=== PATIENT | female | born 1935 | race African-American/Black ===

== ENCOUNTER 2019-01-22 07:46 | Inpatient (IN) | payer MEDICARE, BC ==
[2019-01-22 08:51] LABS: ALT (SGPT) 14 U/L (8-55); AST (SGOT) 22 U/L (5-34); Albumin 4.1 g/dL (3.4-4.8); Alkaline Phosphatase 79 U/L (40-150); Anion Gap 14 mmol/L (10-20); BUN (Urea Nitrogen) 17 mg/dL (9.8-20.1); Bilirubin, Total 0.7 mg/dL (0.2-1.2); Calc. Creatinine Clearance 0 mL/min (70-130); Calcium 9.7 mg/dL (7.8-10.44); Carbon Dioxide 22 mmol/L (23-31); Chloride 109 mmol/L (98-107); Estimated GFR-MDRD 61; Globulin 2.9 g/dL (2.4-3.5); Glucose 184 mg/dL (83-110); Potassium 3.8 mmol/L (3.5-5.1); Sodium 141 mmol/L (136-145)
[2019-01-22 09:06] LABS: #Eosinphils 0.4 thou/uL (0.0-0.7); #Lymphocytes 3.1 thou/uL (1.20-3.40); #Monocytes 0.4 thou/uL (0.11-0.59); #Neutrophils 3.9 thou/uL (1.40-6.50); %Basophils 0.5 % (0.0-1.0); %Eosinophils 4.7 % (0.0-10.0); %Lymphocytes 39.1 % (21.0-51.0); %Monocytes 5.6 % (0.0-10.0); %Neutrophils 50.1 % (42.0-75.0); Hemoglobin 11.4 g/dL (12.0-16.0); Large Platelets SLIGHT; MDiff Complete? YES; Mean Corpuscular HGB CONC 33.3 g/dL (32.0-36.0); Mean Corpuscular Hemoglobin 30.8 pg (27.0-31.0); Mean Corpuscular Volume 92.6 fL (78.0-98.0); Mean Platelet Volume 9.9 fL (7.4-10.4); Platelet Count 196 thou/uL (130-400); Platelet Morphology Comment Appears Adequate; RBC Distribution Width 19.5 % (11.5-14.5); White Blood Cell (WBC) Count 7.8 thou/uL (4.8-10.8)
[2019-01-22 09:14] LABS: CKMB 2.8 ng/mL (0-6.6)
[2019-01-22] MEDS ORDERED: Aspirin Chewable 81 MG TAB ONE (09:18)
--- NOTE | 2019-01-22 09:34 | RAD ---
ONE VIEW CHEST: COMPARISON: 07/30/2003. HISTORY: Dyspnea. FINDINGS: Enlarged cardiac silhouette. The pulmonary vessels and hilum are normal. There is hazy opacificatio n of the lung bases suggesting bilateral pleural effusions with left lower lobe parenchymal changes s econdary to atelectasis, pneumonia, or aspiration. No pneumothorax. IMPRESSION: Bilateral pleural effusions with left lower lobe parenchymal changes as described above. Continued s urveillance is recommended. POS: OFF
--- NOTE | 2019-01-22 11:04 | CT ---
CT angiogram chest with 3-D rendering: HISTORY: Shortness of breath FINDINGS: Moderate size bilateral pleural effusions and bilateral vascular congestion and diffuse groundglass o pacities evidence for pulmonary edema with cardiomegaly concerning for congestive heart failure. No CT evidence for acute pulmonary embolism. Old granulomatous disease. 1.5 cm diameter right adrenal ad enoma. Small renal hypodensities statistically small cysts. No mediastinal mass or adenopathy. No evidence for an aortic aneurysm. IMPRESSION: Evidence for congestive heart failure. No CT evidence for acute pulmonary embolism. Other findings as above.
[2019-01-22] MEDS ORDERED: Amlodipine 5 MG TAB ONE (11:50)
[2019-01-22 11:58] LABS: Troponin I 0.048 ng/mL (< 0.028)
[2019-01-22] MEDS ORDERED: Senokot S 8.6-50 MG TAB PO PRN (12:02)
[2019-01-22] MEDS ORDERED: HYDROcodone/Acetaminophen 5/325 mg Tablet PO PRN (12:02)
[2019-01-22] MEDS ORDERED: Acetaminophen 325 MG TAB PO PRN (12:02)
[2019-01-22] MEDS ORDERED: Dextrose 5% in Water 1,000 ML IV PRN (12:08)
[2019-01-22] MEDS ORDERED: Dextrose 50% Abboject 50 ML SYRINGE SLOW IVP PRN (12:08)
[2019-01-22] MEDS ORDERED: hydrALAZINE 20 MG/ML VIAL SLOW IVP PRN (12:23)
[2019-01-22] MEDS ORDERED: cloNIDine 0.1 MG TAB PO PRN (12:23)
[2019-01-22] MEDS ORDERED: Furosemide 40 MG/4 ML VIAL ONE (12:33)
[2019-01-22] MEDS ORDERED: ISOVUE-370 76%-LOCM 1 ML ONE (13:01)
--- NOTE | 2019-01-22 13:02 | HP ---
PRIMARY CARE PHYSICIAN: Dr. Brown. CHIEF COMPLAINT: Dyspnea. HISTORY OF PRESENT ILLNESS: This is a very pleasant 83-year-old female, who reported to the emergency room today after what she describes is 2 days of shortness of breath. She denies chest pain, fever, or cough. Reports she has a history of some tachycardia and reports that she had to be hospitalized once for that, but is not exactly sure what they did. Does report that she had a cardiac cath at some point, maybe 2002 she thinks at [facility] in [place], but they did not put any stents or do anything with her and she has not followed up with Cardiology since that time. She reports dyspnea on exertion, which she reports is new. Denies any cardiac disease or irregularities and other problems other than the persistent tachycardia, which she reports she has not had for quite some time. Denies history of COPD or any smoking history. She does report a past medical history pertinent for hypertension and diabetes. In the emergency room, the patient had a high D-dimer 0.[address] the CT scan for a CTA of the chest. Impression was evidence for congestive heart failure. No CT evidence of acute pulmonary emboli. First troponin is in the indeterminate range of 0.048 and BNP is 586. The patient denies any history of any congestive heart failure and denies being told that she has this. The patient to be admitted to the telemetry unit for further management. PAST MEDICAL HISTORY: Pertinent as above. Diabetes type 2, hypertension, and tachycardia in the past. PAST SURGICAL HISTORY: Bilateral hip replacements, cholecystectomy, has had a heart catheterization in the past in early 1999 she believes. PSYCHIATRIC HISTORY: None. SOCIAL HISTORY: The patient drinks socially, but rarely. Denies any drug use or any smoking history. FAMILY HISTORY: There is some cardiac history on her mother side. REVIEW OF SYSTEMS: The patient reports history of tachycardia. Reports new onset shortness of breath and dyspnea on exertion. Denies any cough. Denies any fever or chills. Denies any chest pain. All other systems are reviewed and are negative unless mentioned in the HPI. PHYSICAL EXAMINATION: VITAL SIGNS: Blood pressure 180/109, pulse is 97, respirations are 19, temp is 97.8, PO2 sats are 92% on room air. CONSTITUTIONAL: The patient appears nontoxic. She is alert and oriented to person, place, and time. HEENT: Head is atraumatic and normocephalic. Eyes, pupils are equal, round, and reactive to light. Extraocular muscles are intact. ENT; mouth exam is normal. Mucous membranes are moist. Poorly fitted dentures. NECK: Normal range of motion. Trachea is midline. RESPIRATORY: Expiratory crackles present on right lower lobe. No findings of any respiratory distress. CARDIOVASCULAR: Irregularly irregular. Heart sounds are normal. ABDOMEN: Nontender. Bowel sounds are heard. BACK: Normal inspection. Normal range of motion. EXTREMITIES: Upper extremity; normal inspection. Normal range of motion. Motor strength is normal. Sensation intact. Radial pulses are normal. Lower extremities; normal range of motion. Motor strength is normal. Sensation intact. Pedal pulses are normal. There is no edema noted. NEUROLOGIC: The patient is oriented to person, place, and time. Speech is normal. SKIN: Warm, dry, and normal in color that is which is visualized. PSYCH: Normal affect. DIAGNOSTIC DATA: EKG in the emergency room shows beats per minute 96, sinus rhythm with PVCs, complete right bundle branch block, ST segments normal, T-waves normal. ASSESSMENT/PLAN: 1. Dyspnea with concern for new onset congestive heart failure per CT scan, elevated BNP and symptoms. She was given Lasix 40, normal saline 500 mL, amlodipine 10, and an aspirin in the emergency room. We will continue Lasix. Order an echocardiogram. Asked Cardiology to consult. We will trend troponins. Continue aspirin. 2. History of hypertension. We will restart home medications once reconciled. Add p.r.n. medications as needed. We will trend. 3. History of diabetes mellitus. We will check sugar a.c. and at bedtime. Add sliding scale coverage while hospitalized. We will trend. 4. Deep venous thrombosis and gastrointestinal prophylaxis have been started. 5. Case was discussed with Dr. George, who agrees. 6. Hospital course is dependent on clinical findings. Job ID: [id number]
[2019-01-22] MEDS ORDERED: Potassium Chloride 20 MEQ TAB ONE (14:34)
[2019-01-22] MEDS ORDERED: traMADol HCl 50 MG TAB ONE (14:34)
[2019-01-22 15:41] LABS: Troponin I 0.081 ng/mL (< 0.028)
[2019-01-22 17:01] VITALS: BMI 29.7
--- NOTE | 2019-01-22 17:01 | CON ---
DATE OF CONSULTATION: REASON FOR CONSULTATION: Shortness of breath. HISTORY OF PRESENT ILLNESS: Ms. Marr is an 83-year-old woman, who has now been seen and evaluated by Cardiology in the past. She states over the last 3 days, she has began having increased shortness of breath. She states she never lies flat and always sleeps recumbent. She denies chest pain, pressure, PND, or lower extremity edema. She was subsequently admitted due to BNP of 586. No chest pain or pressure reported. She also was found to have elevated blood pressure. HOME MEDICATIONS: Nonspecified. ALLERGIES: VERAPAMIL (RASH). LISINOPRIL (UNKNOWN). PAST MEDICAL HISTORY: Diabetes mellitus, hypertension, hip replacement, and cholecystectomy. SOCIAL HISTORY: No current alcohol or tobacco use. REVIEW OF SYSTEMS: Ten-point review of systems is reviewed and as above, otherwise negative. PHYSICAL EXAMINATION: VITAL SIGNS: Patient is a pleasant woman, who is in no acute distress. The patient appears their stated age. VITAL SIGNS: Blood pressure 167/67, pulse 70, and respirations 20. NEUROLOGIC: The patient is alert and oriented x3 with no focal neurologic deficits. HEENT: Sclerae without icterus. Mouth has moist mucous membranes with normal pallor. NECK: No JVD. Carotid upstroke brisk. No bruits bilaterally. LUNGS: Crackles noted bilaterally. BACK: No scoliosis or kyphosis. CARDIAC: Regular rate and rhythm with normal S1 and S2. No S3 or S4 noted. No significant rubs, murmurs, thrills, or gallops noted throughout the precordium. PMI is not displaced. There is no parasternal heave. ABDOMEN: Soft, nontender, nondistended. No peritoneal signs present. No hepatosplenomegaly. No abnormal striae. EXTREMITIES: 2+ femoral and 2+ dorsalis pedis pulses. No cyanosis, clubbing, or edema. SKIN: No gross abnormalities. PERTINENT LABORATORY DATA: Include a chloride of 109, CO2 of 22, and creatinine of 1.05. BNP of 586. IMPRESSION: 1. Cardiomyopathy of unknown etiology. 2. Hypertension. 3. Diabetes mellitus. RECOMMENDATIONS: 1. Ms. Marr likely has a component of diastolic dysfunction. We would recommend echo Doppler to assess LVEF. Her BNP is elevated. She also has crackles. Continue with Lasix. 2. I also discussed her elevated blood pressure. She has this history to calcium-channel cassandra and TYSON inhibitor therapy. I did state this would certainly limits our options. She is unsure what her true lisinopril allergy was. May need to have her rechallenged. We will increase Lasix to b.i.d. dosing. Job ID: [id number]
[2019-01-22 18:50] LABS: Troponin I 0.069 ng/mL (< 0.028)
[2019-01-22] MEDS: Famotidine 20 MG TAB PO SCH (20:45)
[2019-01-23 06:15] LABS: Anion Gap 10 mmol/L (10-20); BUN (Urea Nitrogen) 15 mg/dL (9.8-20.1); Calc. Creatinine Clearance 50 mL/min (70-130); Calcium 9.5 mg/dL (7.8-10.44); Carbon Dioxide 28 mmol/L (23-31); Chloride 106 mmol/L (98-107); Estimated GFR-MDRD 60; Glucose 116 mg/dL (83-110); Potassium 4.3 mmol/L (3.5-5.1); Sodium 140 mmol/L (136-145)
[2019-01-23 07:17] LABS: #Basophils 0.1 thou/uL (0.0-0.2); #Eosinphils 0.5 thou/uL (0.0-0.7); #Lymphocytes 2.8 thou/uL (1.20-3.40); #Monocytes 0.5 thou/uL (0.11-0.59); #Neutrophils 5.2 thou/uL (1.40-6.50); %Eosinophils 5.3 % (0.0-10.0); %Lymphocytes 30.8 % (21.0-51.0); %Monocytes 5.9 % (0.0-10.0); Hemoglobin 10.9 g/dL (12.0-16.0); Mean Corpuscular Hemoglobin 30.6 pg (27.0-31.0); Mean Corpuscular Volume 92.8 fL (78.0-98.0); Platelet Count 214 thou/uL (130-400); RBC Distribution Width 19.8 % (11.5-14.5); Red Blood Cell (RBC) Count 3.56 mill/uL (4.20-5.40); White Blood Cell (WBC) Count 9.2 thou/uL (4.8-10.8)
[2019-01-23] MEDS ORDERED: Losartan 25 MG TAB PO SCH ×3 (09:00→14:15)
[2019-01-23] MEDS ORDERED: Furosemide 40 MG/4 ML VIAL SLOW IVP SCH (09:00)
[2019-01-23] MEDS ORDERED: Carvedilol 3.125 MG TAB PO SCH (09:00)
[2019-01-23] MEDS: Famotidine 20 MG TAB PO SCH ×2 (09:27→20:15)
[2019-01-23] MEDS: Furosemide 40 MG/4 ML VIAL SLOW IVP SCH ×2 (09:28→12:19)
[2019-01-23] MEDS: Enoxaparin Sodium 40 MG/0.4 ML SYRINGE SC SCH (09:29)
[2019-01-23] MEDS: HumaLOG 300 UNITS/3 ML VIAL SC PRN (12:19)
--- NOTE | 2019-01-23 13:23 | PDOC.CPN ---
- Subjective Date: 01/23/19 Time: 13:21 Interval history: Feels much better today Much less SOB - Objective Allergies/Adverse Reactions: Allergies Allergy/AdvReac Type Severity Reaction Status Date / Time lisinopril Allergy Verified 01/22/19 16:45 verapamil Allergy Verified 01/22/19 16:45 Visit Medications: Current Medications Acetaminophen (Tylenol) 650 mg PO Q4H PRN PRN Reason: Headache/Fever/Mild Pain (1-3) Hydrocodone Bitart/Acetaminophen ([place] 5/325) 1 tab PO Q4H PRN PRN Reason: Moderate Pain (4-6) Alogliptin Benzoate (Alogliptin) 25 mg PO DAILY [facility] Atorvastatin Calcium (Lipitor) 10 mg PO HS [facility] Carvedilol (Coreg) 3.125 mg PO BID [facility] Last Admin: 01/23/19 09:28 Dose: 3.125 mg Clonidine (Catapres) 0.1 mg PO Q4H PRN PRN Reason: SBP Greater Than 180 Dextrose/Water (Dextrose 50%) 25 gm SLOW IVP PRN PRN PRN Reason: Hypoglycemia Enoxaparin Sodium (Lovenox) 40 mg SC 0900 [facility] Last Admin: 01/23/19 09:29 Dose: 40 mg Famotidine (Pepcid) 20 mg PO BID [facility] Last Admin: 01/23/19 09:27 Dose: 20 mg Furosemide (Lasix) 40 mg SLOW IVP 0900,1200 [facility] Last Admin: 01/23/19 12:19 Dose: 40 mg Glimepiride (Amaryl) 8 mg PO QAM [facility] Glucagon (Glucagon) 1 mg IM PRN PRN PRN Reason: Hypoglycemia Hydralazine HCl (Apresoline) 10 mg SLOW IVP Q4H PRN PRN Reason: SBP > 180 and HR < 70 Dextrose/Water (D5w) 1,000 mls @ 0 mls/hr IV .Q0M PRN PRN Reason: Hypoglycemia Insulin Human Lispro (Humalog) 0 units SC .MILD SLIDING SCALE PRN PRN Reason: Mild Correctional Scale Last Admin: 01/23/19 12:19 Dose: 2 unit Losartan Potassium (Cozaar) 50 mg PO DAILY [facility] Last Admin: 01/23/19 09:27 Dose: 50 mg Senna/Docusate Sodium (Senokot S) 2 tab PO BIDPRN PRN PRN Reason: Constipation Sodium Chloride (Flush - Normal Saline) 10 ml IVF PRN PRN PRN Reason: Saline Flush Vital Signs & Weight: Vital Signs Temp Pulse Resp BP BP BP Pulse Ox 01/23/19 12:11 99.1 F 86 18 152/71 H 95 01/23/19 11:26 145/61 H 170/72 H 01/23/19 08:00 98 01/23/19 07:23 98.1 F 78 18 144/96 H 98 01/23/19 04:00 98.2 F 73 16 143/63 H 94 L Pulse Ox 01/23/19 12:11 01/23/19 11:26 94 L 01/23/19 08:00 01/23/19 07:23 01/23/19 04:00 Weight 169 lb 1.6 oz - Physical Exam General: alert & oriented x3 HEENT: mucus membranes moist Neck: supple neck Cardiac: regular rate and rhythm, audible murmur Lungs: clear to auscultation Neuro: grossly intact Musculoskeletal: normal range of motion - Labs Result Diagrams: 01/23/19 05:21 01/23/19 05:21 Troponin/CKMB CK-MB (CK-2) 2.8 ng/mL (0-6.6) 01/22/19 08:15 Troponin I 0.069 ng/mL (< 0.028) H 01/22/19 18:11 - Assessment/Plan Assessment/Plan: SOB Severe MR Diasatolic dysfunction Recommend continued diuresis Switch to po lasix in am Pt near BL No further recommendations Home tomorrow if no changes with OP fu
--- NOTE | 2019-01-23 13:57 | PDOC.HOSPP ---
- Subjective Encounter Date: 01/23/19 Encounter Time: 08:55 Subjective: 83 y/o female with DM, HTN admitted with worsening SOB and leg edema. Started on lasix with improvement. - Objective Vital Signs & Weight: Vital Signs (12 hours) Temp Pulse Resp BP BP BP Pulse Ox 01/23/19 12:11 99.1 F 86 18 152/71 H 95 01/23/19 11:26 145/61 H 170/72 H 01/23/19 08:00 98 01/23/19 07:23 98.1 F 78 18 144/96 H 98 01/23/19 04:00 98.2 F 73 16 143/63 H 94 L Pulse Ox 01/23/19 12:11 01/23/19 11:26 94 L 01/23/19 08:00 01/23/19 07:23 01/23/19 04:00 Weight Weight 169 lb 1.6 oz I&O: 01/22/19 01/23/19 01/24/19 06:59 06:59 06:59 Intake Total 120 Output Total 1000 Balance -880 Result Diagrams: 01/23/19 05:21 01/23/19 05:21 Additional Labs: Accuchecks 01/23/19 01/22/19 11:20 17:41 POC Glucose 195 H 188 H Hospitalist ROS - Medication Medications: Active Medications Generic Name Dose Route Start Last Admin Trade Name Freq PRN Reason Stop Dose Admin Enoxaparin Sodium 40 mg 01/23/19 09:00 01/23/19 09:29 Lovenox SC 40 mg 0900 ABDI Administration Famotidine 20 mg 01/22/19 21:00 01/23/19 09:27 Pepcid PO 20 mg BID ABDI Administration Insulin Human Lispro 0 units 01/22/19 12:08 01/23/19 12:19 Humalog SC 2 unit .MILD SLIDING SCALE PRN Administration Mild Correctional Scale Losartan Potassium 50 mg 01/23/19 09:00 01/23/19 09:27 Cozaar PO 50 mg DAILY ABDI Administration - Exam General Appearance: awake alert Eye: anicteric sclera ENT: normocephalic atraumatic, moist mucosa Neck: supple, symmetric Heart: RRR, murmur present Respiratory - other findings: fair air but decreased at the bases Gastrointestinal: soft, non-tender, non-distended, normal bowel sounds Extremities: no cyanosis, no edema Neurological: cranial nerve grossly intact, no focal deficits Musculoskeletal: normal tone, no muscle wasting Psychiatric: normal affect, A&O x 3 Hosp A/P (1) Acute diastolic heart failure due to valvular disease Code(s): I50.31 - ACUTE DIASTOLIC (CONGESTIVE) HEART FAILURE; I38 - ENDOCARDITIS , VALVE UNSPECIFIED Status: Acute (2) Severe mitral regurgitation Code(s): I34.0 - NONRHEUMATIC MITRAL (VALVE) INSUFFICIENCY Status: Acute (3) Acute respiratory failure with hypoxia Code(s): J96.01 - ACUTE RESPIRATORY FAILURE WITH HYPOXIA Status: Acute (4) HTN (hypertension) Code(s): I10 - ESSENTIAL (PRIMARY) HYPERTENSION Status: Acute (5) Diabetes mellitus Code(s): E11.9 - TYPE 2 DIABETES MELLITUS WITHOUT COMPLICATIONS Status: Acute (6) Physical deconditioning Code(s): R53.81 - OTHER MALAISE Status: Acute - Plan Restart losartan at a lower dose. Start low dose coreg and titrate upwards as tolerated. Continue lasix IV bid Continue to hold amlodipine and HCTZ. Increase activity. For discharge tomorrow if doing well. Wean off oxygen
[2019-01-23] MEDS: Carvedilol 6.25 MG TAB PO SCH (20:15)
[2019-01-23] MEDS ORDERED: Atorvastatin Calcium 10 MG TAB PO SCH (21:00)
--- NOTE | 2019-01-24 05:32 | PDOC.CPN ---
- Subjective Date: 01/24/19 Time: 16:49 - Objective Allergies/Adverse Reactions: Allergies Allergy/AdvReac Type Severity Reaction Status Date / Time lisinopril Allergy Verified 01/22/19 16:45 verapamil Allergy Verified 01/22/19 16:45 Visit Medications: Current Medications Acetaminophen (Tylenol) 650 mg PO Q4H PRN PRN Reason: Headache/Fever/Mild Pain (1-3) Hydrocodone Bitart/Acetaminophen ([place] 5/325) 1 tab PO Q4H PRN PRN Reason: Moderate Pain (4-6) Alogliptin Benzoate (Alogliptin) 25 mg PO DAILY [facility] Atorvastatin Calcium (Lipitor) 10 mg PO HS [facility] Last Admin: 01/23/19 20:15 Dose: 10 mg Carvedilol (Coreg) 6.25 mg PO BID [facility] Last Admin: 01/23/19 20:15 Dose: 6.25 mg Clonidine (Catapres) 0.1 mg PO Q4H PRN PRN Reason: SBP Greater Than 180 Dextrose/Water (Dextrose 50%) 25 gm SLOW IVP PRN PRN PRN Reason: Hypoglycemia Enoxaparin Sodium (Lovenox) 40 mg SC 0900 [facility] Last Admin: 01/23/19 09:29 Dose: 40 mg Famotidine (Pepcid) 20 mg PO BID [facility] Last Admin: 01/23/19 20:15 Dose: 20 mg Furosemide (Lasix) 80 mg PO DAILY[facility] Glimepiride (Amaryl) 8 mg PO QAM [facility] Glucagon (Glucagon) 1 mg IM PRN PRN PRN Reason: Hypoglycemia Hydralazine HCl (Apresoline) 10 mg SLOW IVP Q4H PRN PRN Reason: SBP > 180 and HR < 70 Dextrose/Water (D5w) 1,000 mls @ 0 mls/hr IV .Q0M PRN PRN Reason: Hypoglycemia Insulin Human Lispro (Humalog) 0 units SC .MILD SLIDING SCALE PRN PRN Reason: Mild Correctional Scale Last Admin: 01/23/19 12:19 Dose: 2 unit Losartan Potassium (Cozaar) 100 mg PO DAILY [facility] Senna/Docusate Sodium (Senokot S) 2 tab PO BIDPRN PRN PRN Reason: Constipation Sodium Chloride (Flush - Normal Saline) 10 ml IVF PRN PRN PRN Reason: Saline Flush Vital Signs & Weight: Vital Signs Temp Pulse Resp BP BP Pulse Ox 01/24/19 04:00 97.9 F 69 20 141/69 H 94 L 01/24/19 00:00 18 01/23/19 20:15 146/64 H 01/23/19 20:00 98.4 F 73 20 146/64 H 94 L Weight 169 lb 1.6 oz - Physical Exam General: alert & oriented x3 Neck: supple neck Cardiac: regular rate and rhythm Lungs: clear to auscultation Neuro: grossly intact Abdomen: unremarkable Musculoskeletal: normal range of motion - Labs Result Diagrams: 01/23/19 05:21 01/24/19 05:08 Troponin/CKMB CK-MB (CK-2) 2.8 ng/mL (0-6.6) 01/22/19 08:15 Troponin I 0.069 ng/mL (< 0.028) H 01/22/19 18:11 - Assessment/Plan Assessment/Plan: SOB Severe MR Diasatolic dysfunction REC 01/24 Switch to PO lasix 40mg QAM On BB, statin, ASA Catheterization Laboratory Technician on low Na diet and fluid restriction Sign off; fu in 1-2 weeks 01/23 Recommend continued diuresis Switch to po lasix in am Pt near BL No further recommendations Home tomorrow if no changes with OP fu
[2019-01-24 05:47] LABS: Anion Gap 11 mmol/L (10-20); BUN (Urea Nitrogen) 22 mg/dL (9.8-20.1); Calc. Creatinine Clearance 46 mL/min (70-130); Calcium 9.5 mg/dL (7.8-10.44); Carbon Dioxide 28 mmol/L (23-31); Chloride 102 mmol/L (98-107); Estimated GFR-MDRD 55; Glucose 141 mg/dL (83-110); Potassium 3.5 mmol/L (3.5-5.1); Sodium 137 mmol/L (136-145)
[2019-01-24] MEDS ORDERED: Furosemide 80 MG TAB PO SCH (07:30)
[2019-01-24] MEDS ORDERED: Furosemide 40 MG TAB PO SCH (07:30)
[2019-01-24] MEDS ORDERED: Alogliptin 25 MG TAB PO SCH (09:00)
[2019-01-24] MEDS ORDERED: Glimepiride 4 MG TAB PO SCH (09:00)
[2019-01-24] MEDS: Carvedilol 6.25 MG TAB PO SCH (09:38)
[2019-01-24] MEDS: Enoxaparin Sodium 40 MG/0.4 ML SYRINGE SC SCH (09:38)
[2019-01-24] MEDS: Famotidine 20 MG TAB PO SCH (09:39)
[2019-01-24] MEDS: HumaLOG 300 UNITS/3 ML VIAL SC PRN (12:29)
--- NOTE | 2019-01-24 14:08 | PDOC.HOSPP ---
- Subjective Encounter Date: 01/24/19 Encounter Time: 14:06 Subjective: Ms. Marr was seen today in follow-up of CHF exacerbation. she is feeling better. she denies chest pain or dyspnea. - Objective Vital Signs & Weight: Vital Signs (12 hours) Temp Pulse Resp BP BP Pulse Ox 01/24/19 11:35 98.3 F 71 18 125/56 L 96 01/24/19 09:38 132/60 01/24/19 08:00 99 01/24/19 07:35 97.9 F 74 18 138/65 99 01/24/19 04:00 97.9 F 69 20 141/69 H 94 L Weight Weight 161 lb 11.2 oz I&O: 01/23/19 01/24/19 01/25/19 06:59 06:59 06:59 Intake Total 120 1370 Output Total 1000 1650 Balance -880 -280 Result Diagrams: 01/23/19 05:21 01/24/19 05:08 Additional Labs: Accuchecks 01/24/19 01/24/19 01/23/19 10:46 05:23 20:18 POC Glucose 254 H 164 H 228 H 01/23/19 01/23/19 01/22/19 16:53 05:23 20:26 POC Glucose 151 H 125 H 193 H Hospitalist ROS - Medication Medications: Active Medications Generic Name Dose Route Start Last Admin Trade Name Freq PRN Reason Stop Dose Admin Alogliptin Benzoate 25 mg 01/24/19 09:00 01/24/19 09:38 Alogliptin PO 25 mg DAILY ABDI Administration Atorvastatin Calcium 10 mg 01/23/19 21:00 01/23/19 20:15 Lipitor PO 10 mg HS ABDI Administration Carvedilol 6.25 mg 01/23/19 21:00 01/24/19 09:38 Coreg PO 6.25 mg BID ABDI Administration Enoxaparin Sodium 40 mg 01/23/19 09:00 01/24/19 09:38 Lovenox SC 40 mg 0900 ABDI Administration Famotidine 20 mg 01/22/19 21:00 01/24/19 09:39 Pepcid PO 20 mg BID ABDI Administration Furosemide 40 mg 01/24/19 07:30 01/24/19 09:39 Lasix PO 40 mg DAILY-AC ABDI Administration Glimepiride 8 mg 01/24/19 09:00 01/24/19 09:38 Amaryl PO 8 mg QAM ABDI Administration Insulin Human Lispro 0 units 01/22/19 12:08 01/24/19 12:29 Humalog SC 4 unit .MILD SLIDING SCALE PRN Administration Mild Correctional Scale Losartan Potassium 100 mg 01/23/19 14:02 01/24/19 09:38 Cozaar PO 100 mg DAILY ABDI Administration - Exam Eye: PERRL, anicteric sclera Heart: RRR, no murmur, no gallops, no rubs, normal peripheral pulses Respiratory: CTAB, no wheezes, no rales, no ronchi, normal chest expansion, no tachypnea, normal percussion Gastrointestinal: soft, non-tender, non-distended, normal bowel sounds, no palpable masses, no hepatomegaly, no splenomegaly Extremities: no cyanosis, no edema Hosp A/P (1) Acute diastolic heart failure due to valvular disease Code(s): I50.31 - ACUTE DIASTOLIC (CONGESTIVE) HEART FAILURE; I38 - ENDOCARDITIS , VALVE UNSPECIFIED Status: Acute (2) Diabetes mellitus Code(s): E11.9 - TYPE 2 DIABETES MELLITUS WITHOUT COMPLICATIONS Status: Acute (3) HTN (hypertension) Code(s): I10 - ESSENTIAL (PRIMARY) HYPERTENSION Status: Acute - Plan * Acute on chronic diastolic heart failure- better compensated * She has been cleared for discharge home
[2019-01-24 16:01] VITALS: BP 139/65; TEMP 97.7
--- NOTE | 2019-01-25 00:37 | DIS ---
DATE OF ADMISSION: 01/22/2019 DATE OF DISCHARGE: 01/24/2019 PRIMARY CARE PHYSICIAN: Destini Brown MD DISCHARGE DISPOSITION: Home. PRIMARY DISCHARGE DIAGNOSES: 1. Acute on chronic diastolic heart failure. 2. Diabetes mellitus. 3. Hypertension. DISCHARGE MEDICATIONS: 1. Losartan 100 mg daily. 2. Lasix 40 mg daily. 3. Carvedilol 6.25 mg twice daily. 4. Januvia 100 mg p.o. daily. 5. Amaryl 8 mg daily. 6. Trulicity as directed. 7. Vitamin B12 of 1000 mcg p.o. daily. 8. Lipitor 10 mg at bedtime. 9. Aspirin 81 mg daily. PROCEDURE DURING THE HOSPITAL STAY: The patient had a CT angiogram of the chest, which was negative for pulmonary embolism, however, showed evidence of possible congestive heart failure. She had an echocardiogram showing an ejection fraction estimated at 50% to 55%. There was some impaired relaxation compatible with diastolic dysfunction, as well as severe mitral regurgitation was present and a large pleural effusion. CODE STATUS: Full code. ALLERGIES: TO LISINOPRIL AND VERAPAMIL. HOSPITAL COURSE: Ms. Marr is a very pleasant 83-year-old female, who was admitted to the hospital with complaints of shortness of breath. She was admitted and found to be in congestive heart failure as a result of diastolic dysfunction. Cardiology was consulted and her medications were adjusted. She diuresed well over the course of the next couple of days and was able to be discharged home. She was asked to refrain from driving due to some family concerns with possible early dementia and she was asked to follow up with her primary care physician in 1 to 2 weeks. Job ID: [id number]
--- NOTE | 2019-01-28 13:59 | EKG ---
Test Reason : SOB Blood Pressure : / mmHG Vent. Rate : 096 BPM Atrial Rate : 096 BPM P-R Int : 000 ms QRS Dur : 138 ms QT Int : 418 ms P-R-T Axes : -09 -11 -27 degrees QTc Int : 528 ms Sinus rhythm with Premature ventricular complexes or Fusion complexes Right bundle branch block Inferior infarct , age undetermined Abnormal ECG Confirmed by LILLIANA LOCKE ([id number]), graphics editor GINNY BAPTISTE ([id number]) on 01/28/2019 1:59:22 PM Referred By: Confirmed By:LILLIANA LOCKE
== END 2019-01-24 17:05 | disposition home or self-care (01) | DRG 291 ==
LOC: ERS 07:46 → 2NO 11:43
PROVIDERS: ADMIT Internal Medicine; ATTEND Internal Medicine
DX: I11.0 Hypertensive heart disease with heart failure (principal); J96.01 Acute respiratory failure with hypoxia; I50.33 Acute on chronic diastolic (congestive) heart failure; I34.0 Nonrheumatic mitral (valve) insufficiency; E11.9 Type 2 diabetes mellitus without complications; Z96.643 Presence of artificial hip joint, bilateral; I42.9 Cardiomyopathy, unspecified
CPT/HCPCS: 36415; 36416; 71045; 71275; 80048; 80053; 82553; 83880; 84484; 85025; 85379; 93005; 93306; 93798; 94760; 96361; 96374; J1650; J1940; Q9966

== ENCOUNTER 2019-09-03 09:39 | Emergency (ER) | payer MEDICARE, BC ==
[2019-09-03] MEDS ORDERED: Ketorolac Tromethamine 30 MG/ML VIAL ONE (10:44)
== END 2019-09-03 11:55 | disposition home or self-care (01) ==
LOC: ERS 09:39
DX: M62.838 Other muscle spasm (principal); M54.2 Cervicalgia; E78.5 Hyperlipidemia, unspecified; E11.9 Type 2 diabetes mellitus without complications; I11.0 Hypertensive heart disease with heart failure; I50.9 Heart failure, unspecified; Z79.82 Long term (current) use of aspirin; Z79.899 Other long term (current) drug therapy; Z79.891 Long term (current) use of opiate analgesic
CPT/HCPCS: 93005; J1885; 96372

== ENCOUNTER 2019-09-25 08:31 | Emergency (ER) | payer MEDICARE, BC, OTHER ==
[2019-09-25 09:14] LABS: #Basophils 0.1 thou/uL (0.0-0.2); #Eosinphils 0.1 thou/uL (0.0-0.7); #Lymphocytes 2.8 thou/uL (1.20-3.40); #Monocytes 0.6 thou/uL (0.11-0.59); %Basophils 0.8 % (0.0-1.0); %Eosinophils 1.4 % (0.0-10.0); %Lymphocytes 43.4 % (21.0-51.0); %Monocytes 8.5 % (0.0-10.0); Hemoglobin 12.2 g/dL (12.0-16.0); Mean Corpuscular HGB CONC 31.3 g/dL (32.0-36.0); Mean Corpuscular Hemoglobin 30.6 pg (27.0-31.0); Mean Corpuscular Volume 97.7 fL (78.0-98.0); Mean Platelet Volume 12.7 fL (7.4-10.4); Platelet Count 153 thou/uL (130-400); RBC Distribution Width 21.4 % (11.5-14.5); White Blood Cell (WBC) Count 6.5 thou/uL (4.8-10.8)
--- NOTE | 2019-09-25 09:14 | RAD ---
Chest one view HISTORY: Dyspnea. COMPARISON: 01/22/2019. FINDINGS: Cardiac silhouette is magnified and enlarged. Pulmonary vasculature is unremarkable. Mediastinum is midline with aortic calcification. Subtle blunting of the right lateral costophrenic angle. No lobar consolidation or evidence of pneumothorax. interactive designer leads overlie the chest. IMPRESSION : Very small right pleural effusion. Cause is not evident. Cardiomegaly. Atherosclerosis.
[2019-09-25 09:40] LABS: ALT (SGPT) 20 U/L (8-55); AST (SGOT) 30 U/L (5-34); Albumin 3.8 g/dL (3.4-4.8); Alkaline Phosphatase 128 U/L (40-110); Anion Gap 14 mmol/L (10-20); BUN (Urea Nitrogen) 26 mg/dL (9.8-20.1); Bilirubin, Total 1.8 mg/dL (0.2-1.2); CK (CPK) 68 U/L (29-168); Calc. Creatinine Clearance 0 mL/min (70-130); Calcium 9.6 mg/dL (7.8-10.44); Carbon Dioxide 22 mmol/L (23-31); Chloride 106 mmol/L (98-107); Estimated GFR-MDRD 47; Globulin 3.2 g/dL (2.4-3.5); Glucose 130 mg/dL (83-110); Sodium 138 mmol/L (136-145)
[2019-09-25 09:48] LABS: Burr Cells SLIGHT = 2-5 cells (100X) (0-1/hpf); Large Platelets SLIGHT; MDiff Complete? YES; Platelet Morphology Comment Appears Adequate; Polychromasia SLIGHT = 2-3 cells (100X) (0-2/hpf)
[2019-09-25 09:58] LABS: CKMB 2.1 ng/mL (0-6.6)
[2019-09-25] MEDS ORDERED: Furosemide 20 MG/2 ML VIAL ONE (10:17)
[2019-09-25 10:25] LABS: Bacteria/HPF None Seen HPF (None Seen); Bilirubin Negative (Negative); Blood, Urine Negative (Negative); Clarity Clear (Clear); Glucose, Urine (Dipstick) Normal (Negative); Leukocyte 25 Leu/uL (Negative); Nitrite Negative (Negative); Protein, Urine (Dipstick) 20 mg/dL (Neg-Trace); RBC/HPF 0-3 HPF (0-3); Squamous Epithelial 0-3 HPF (0-3); Urobilinogen 6 mg/dL (Less than 2)
--- NOTE | 2019-09-27 16:15 | EKG ---
Test Reason : Blood Pressure : / mmHG Vent. Rate : 071 BPM Atrial Rate : 071 BPM P-R Int : 148 ms QRS Dur : 132 ms QT Int : 470 ms P-R-T Axes : 050 -30 039 degrees QTc Int : 510 ms Normal sinus rhythm Left axis deviation Right bundle branch block Septal infarct , age undetermined Inferior infarct , age undetermined Abnormal ECG Confirmed by JOHNNIE PADILLA, ZAKIYA ([id number]), photography editor OCTAVIA HARRISON ([id number]) on 09/27/2019 4:15:00 PM Referred By: Confirmed By:ZAKIYA BLAIR MD
== END 2019-09-25 12:00 | disposition home or self-care (01) ==
LOC: ERS 08:31
DX: I11.0 Hypertensive heart disease with heart failure (principal); I50.9 Heart failure, unspecified; N39.0 Urinary tract infection, site not specified; E78.5 Hyperlipidemia, unspecified; E11.9 Type 2 diabetes mellitus without complications; Z79.82 Long term (current) use of aspirin; Z79.899 Other long term (current) drug therapy; Z79.891 Long term (current) use of opiate analgesic
CPT/HCPCS: 36415; 71045; 80053; 81003; 81015; 82550; 82553; 83880; 84484; 85025; 93005; J1940

== ENCOUNTER 2020-04-09 12:40 | Outpatient (CLI) | payer MEDICARE, BC ==
--- NOTE | 2020-04-09 13:03 | RAD ---
XR Chest Pa Lat STANDARD HISTORY: Edema, unspecified COMPARISON: 09/25/2019 FINDINGS: The heart size is enlarged. The left lung is clear. There is a right pleural effusion with adjacent consolidation/atelectatic change. No pneumothoraces are identified.
== END 2020-04-09 12:41 | disposition home or self-care (01) ==
LOC: BICRAD 12:40
PROVIDERS: ATTEND Internal Medicine Cardiovascular Disease
DX: R60.9 Edema, unspecified (principal); J90 Pleural effusion, not elsewhere classified; I51.7 Cardiomegaly
CPT/HCPCS: 71046

== ENCOUNTER 2020-06-02 16:27 | Inpatient (IN) | payer MEDICARE, BC ==
--- NOTE | 2020-06-02 17:10 | RAD ---
Chest one view HISTORY: Hypoglycemia. Altered mental status. COMPARISON: 04/09/2020. FINDINGS: Cardiac silhouette is magnified and enlarged. Pulmonary vasculature accentuated by shallow inspiration. Mediastinum is midline. Hazy opacity at the right base is less in volume than on the prior study. Mil d atelectasis at the right base again demonstrated. Left lung well-inflated. No evidence of pneumothorax. IMPRESSION : Right pleural fluid has decreased slightly since the prior exam. Cardiomegaly and other findings are otherwise stable.
[2020-06-02 17:17] LABS: Bilirubin Negative (Negative); Blood, Urine Negative (Negative); Clarity Clear (Clear); Glucose, Urine (Dipstick) Normal (Negative); Ketone, Urine Negative (Negative); Leukocyte Negative Leu/uL (Negative); Nitrite Negative (Negative); Protein, Urine (Dipstick) Negative (Neg-Trace); Specific Gravity, Urine 1.006 (1.002-1.036); Urobilinogen Normal mg/dL (Less than 2); pH, Urine 6.5 (5.0-9.0)
[2020-06-02 17:29] LABS: #Basophils 0.1 thou/uL (0.0-0.2); #Lymphocytes 1.6 thou/uL (1.20-3.40); #Monocytes 0.6 thou/uL (0.11-0.59); #Neutrophils 3.2 thou/uL (1.40-6.50); %Basophils 0.9 % (0.0-1.0); %Eosinophils 0.1 % (0.0-10.0); %Lymphocytes 29.4 % (21.0-51.0); %Neutrophils 58.5 % (42.0-75.0); Mean Corpuscular HGB CONC 32.4 g/dL (32.0-36.0); Mean Corpuscular Hemoglobin 30.5 pg (27.0-31.0); Mean Corpuscular Volume 94.2 fL (78.0-98.0); Mean Platelet Volume 10.4 fL (7.4-10.4); Platelet Count 128 thou/uL (130-400); RBC Distribution Width 21.5 % (11.5-14.5); Red Blood Cell (RBC) Count 3.59 mill/uL (4.20-5.40); White Blood Cell (WBC) Count 5.5 thou/uL (4.8-10.8)
[2020-06-02 17:42] LABS: ALT (SGPT) 16 U/L (8-55); AST (SGOT) 53 U/L (5-34); Albumin 3.3 g/dL (3.4-4.8); Alkaline Phosphatase 240 U/L (40-110); Anion Gap 14 mmol/L (10-20); BUN (Urea Nitrogen) 21 mg/dL (9.8-20.1); Calc. Creatinine Clearance 0 mL/min (70-130); Calcium 8.9 mg/dL (7.8-10.44); Carbon Dioxide 28 mmol/L (23-31); Chloride 98 mmol/L (98-107); Globulin 3.1 g/dL (2.4-3.5); Protein, Total 6.4 g/dL (5.8-8.1); Sodium 137 mmol/L (136-145)
[2020-06-02] MEDS ORDERED: Dextrose 50% Abboject 50 ML SYRINGE ONE ×2 (17:44→21:48)
[2020-06-02 17:49] LABS: Glucose 30 mg/dL (83-110); Potassium 2.8 mmol/L (3.5-5.1)
[2020-06-02] MEDS ORDERED: Dextrose 50% Abboject 50 ML SYRINGE SLOW IVP SCH (18:00)
[2020-06-02] MEDS ORDERED: Potassium Chloride 20 MEQ TAB PO SCH ×2 (18:00→21:45)
[2020-06-02] MEDS ORDERED: Octreotide Acetate 100 MCG/ML VIAL FS SCH (18:00)
[2020-06-02 18:03] LABS: CKMB 1.5 ng/mL (0-6.6)
[2020-06-02] MEDS ORDERED: Octreotide Acetate 100 MCG/ML VIAL ONE (18:04)
[2020-06-02] MEDS ORDERED: Potassium Chloride 20 MEQ TAB ONE ×2 (18:05→21:48)
--- NOTE | 2020-06-02 18:32 | PDOC.HHP ---
Hospitalist HPI - History of Present Illness Low blood sugar readings History of Present Illness: PCP: Dr. Brown The patient is an 84-year-old female with a past medical history significant for diabetes type 2, CHF, HTN, HLD that presents to the emergency department for the above complaint. The patient reports feeling generally weak last night. Her daughter noted that she was lethargic this morning. Glucose check read 43 at home. EMS was called, patient's blood sugar reading was 50, so they ad ministered an amp of D50. Patient was brought to the emergency department. Upon arrival to the emergency department, the patient had a blood glucose reading of 11. The patient reports a recent fall, however, she did not hit her head and she did not lose consciousness. She basically lowered herself to the floor on her knees. Denies focal motor deficits, changes in speech or vision. She denies any recent changes to her home anti-hyerglycemic medications, which include glimepiride, januvia and trulicity. Last week, she admits to retaining fluid, particularly in her abdomen and legs, she has a history of CHF. She has been compliant with her lasix. Her primary care provider added metolazone to her daily medication regimen on 05/29/2020. She has lost approximately 16 pounds in the past week. She currently denies any chest pain, heart palpitations or lightheadedness. She denies any shortness of breath, increased cough or wheezing. She has no history of DVT/PE. She reports that the swelling in her legs is gone down significantly. She denies any abdominal pain, nausea, vomiting, diarrhea. She denies any hemoptysis, hematochezia/melena. She denies any dysuria or hematuria. She denies any fever or chills. She has no known sick contacts. ED Course: VITAL SIGNS [place] Jun 02, 2020 16:34 FUNMILAYO Terry Jeffery BP: 174/79, MAP: 110, Pulse: 68, Resp: 21, Temp: 98.6 (Oral), O2 sat: 94 on (Room Air), Time: 06/02/2020 16:34. VITAL SIGNS [place] Jun 02, 2020 17:50 FUNMILAYO Bains Jennifer BP: 156/63, Pulse: 60, Resp: 16, Temp: 98.7, Pain: 0, O2 sat: 95, Time: 05/11 17:50. Mediations: aspirin oral 243 mg Oral Acknowledged 18:33 06/02/2020 Octreotide 25mcg im once now * Intramuscular Acknowledged 18:04 06/02/2020 K-Dur 40 mEq Oral Acknowledged 18:04 06/02/2020 D10 05/11 NS with 20kcl 70 ml/hr IV Fluid Infusion Acknowledged 18:04 06/02/2020 dextrose 50 % in water (D50W) 1 amp(s) IV Push Given 17:45 06/02/2020 Hospitalist ROS - Review of Systems All other systems reviewed; all pertinent +/- noted in HPI/Subj - Medication Medications: losartan WedJun 02, 2020 17:34 FUNMILAYO Bains Jennifer TABLET : Strength - 100 mg : ORAL Patient Dose: 100 mg Oral once a day (in the morning). amLODIPine [place] Jun 02, 2020 17:34 FUNMILAYO Bains Jennifer tablet : Strength - 10 mg : ORAL Patient Dose: 1 tab(s) Oral once a day (at bedtime). furosemide oral [place] Jun 02, 2020 17:35 FUNMILAYO Bains Jennifer tablet : Strength - 20 mg : ORAL Patient Dose: 1 tab(s) Oral once a day. atorvastatin WedJun 02, 2020 17:36 FUNMILAYO Bains Jennifer tablet : Strength - 10 mg : ORAL Patient Dose: 1 tab(s) Oral once a day (at bedtime). Januvia [place] Jun 02, 2020 17:51 FUNMILAYO Bains Jennifer TABLET : Strength - 50 mg : ORAL Patient Dose: 100 mg Oral. glimepiride WedJun 02, 2020 17:52 FUNMILAYO Bains Jennifer tablet : Strength - 4 mg : ORAL Patient Dose: 1 tab(s) Oral once a day (in the morning). Trulicity unk dose per week. metOLazone WedJun 02, 2020 17:53 FUNMILAYO Bains Jennifer tablet : Strength - 2.5 mg : ORAL Patient Dose: 1 tab(s) Oral once a day.30 MIN AFTER FUROSEMIDE. Allergies: lisinopril, metFORMIN, verapamil (bulk) Hospitalist History - Past Medical History Source: patient, family, RN notes reviewed Cardiac: reports: CHF, HTN, Hyperlipidemia Endocrine: reports: Diabetes (type II) - Past Surgical History Past Surgical History: reports: Cholecystectomy, Total Hip Replacement (bilateral) - Family History Family History: reports: diabetes mellitus, Other - Social History Smoking Status: Never smoker Alcohol: reports: Rare Drugs: reports: none Living Situation: With Family Occupation: doesnt work Activity level: uses cane/walker - Exam General Appearance: NAD, awake alert. negative: ill appearing Eye: anicteric sclera ENT: normocephalic atraumatic, moist mucosa Neck: supple, no JVD, no lymphadenopathy Heart: RRR, no gallops, no rubs, normal peripheral pulses, III/IV Respiratory: CTAB, no wheezes, no rales, no ronchi, normal chest expansion, no t achypnea Gastrointestinal: soft, non-tender, normal bowel sounds, no guarding, no rigidity Extremities: no cyanosis, no edema Skin: no rashes Neurological: cranial nerve grossly intact, no focal deficits Psychiatric: normal affect, A&O x 3 Hospitalist Results - Labs Result Diagrams: 06/02/20 17:14 06/02/20 23:52 Lab results: WBC 5.5 thou/uL (4.8-10.8) 06/02/20 17:14 Hgb 11.0 g/dL (12.0-16.0) L 06/02/20 17:14 Hct 33.8 % (36.0-47.0) L 06/02/20 17:14 MCV 94.2 fL (78.0-98.0) 06/02/20 17:14 Plt Count 128 thou/uL (130-400) L 06/02/20 17:14 Neutrophils % 58.5 % (42.0-75.0) 06/02/20 17:14 Sodium 137 mmol/L (136-145) 06/02/20 17:14 Potassium 2.8 mmol/L (3.5-5.1) L* 06/02/20 17:14 Chloride 98 mmol/L (98-107) 06/02/20 17:14 Carbon Dioxide 28 mmol/L (23-31) 06/02/20 17:14 BUN 21 mg/dL (9.8-20.1) H 06/02/20 17:14 Creatinine 1.00 mg/dL (0.6-1.1) 06/02/20 17:14 Glucose 30 mg/dL (83-110) L* 06/02/20 17:14 Calcium 8.9 mg/dL (7.8-10.44) 06/02/20 17:14 Total Bilirubin 1.0 mg/dL (0.2-1.2) 06/02/20 17:14 AST 53 U/L (5-34) H 06/02/20 17:14 ALT 16 U/L (8-55) 06/02/20 17:14 Alkaline Phosphatase 240 U/L (40-110) H 06/02/20 17:14 CK-MB (CK-2) 1.5 ng/mL (0-6.6) 06/02/20 17:14 Troponin I 0.170 ng/mL (< 0.028) H 06/02/20 17:14 Serum Total Protein 6.4 g/dL (5.8-8.1) 06/02/20 17:14 Albumin 3.3 g/dL (3.4-4.8) L 06/02/20 17:14 Urine Ketones Negative mg/dL (Negative) 06/02/20 17:00 Urine Blood Negative (Negative) 06/02/20 17:00 Urine Nitrite Negative (Negative) 06/02/20 17:00 Ur Leukocyte Esterase Negative Kenn/uL (Negative) 06/02/20 17:00 - EKG Interpretation EKG: Left axis deviation right bundle branch block pulse 68 no changes from previous no STEMI. - Radiology Interpretation Chest x-ray Status: report reviewed by me Additional Comment: IMPRESSION : Right pleural fluid has decreased slightly since the prior exam. Cardiomegaly and other findings are otherwise stable. Hospitalist H&P A/P - Problem (1) Hypoglycemia Code(s): E16.2 - HYPOGLYCEMIA, UNSPECIFIED Status: Acute (2) Hypokalemia Code(s): E87.6 - HYPOKALEMIA Status: Acute (3) Elevated troponin Code(s): R77.8 - OTHER SPECIFIED ABNORMALITIES OF PLASMA PROTEINS Status: Acute (4) CHF (congestive heart failure) Code(s): I50.9 - HEART FAILURE, UNSPECIFIED Status: Chronic (5) DM2 (diabetes mellitus, type 2) Status: Chronic (6) HTN (hypertension) Code(s): I10 - ESSENTIAL (PRIMARY) HYPERTENSION Status: Chronic (7) HLD (hyperlipidemia) Code(s): E78.5 - HYPERLIPIDEMIA, UNSPECIFIED Status: Chronic - Plan Plan: The patient with type 2 diabetes and CHF presents for generalized weakness and lethargy. Blood sugar reading 30. Initial troponin 0.170, potassium 2.8. EKG RBBB. #Hypoglycemia Reported BG reading at home 43. Takes glimepiride, Januvia, Trulicity at home (not new medications) Given 1 amp D50 by EMS, presented to ER BG reading 11. 1 amp D50 by ER MD. Started on D10 half-normal saline 20 K. Given octreotide 25 mcg IM by ER MD. Hold oral antihyperglycemic medications. Accu-Cheks every 1 hours. Intitiate hypoglycemic protocols. #Hypokalemia Presented potassium 2.8 Started (05/29) on metolazone for FVO by PCP. Takes Lasix 20 mg at home. Reports 16 pound weight loss in the past week. Given 40 mEq K-Dur by ER MD. Episodes of bradycardia HR 60s, dips in the 40s in ER. Recheck BMP stat. #Elevated troponin Presented initial troponin 0.170 Denies chest pain. EKG RBBB Trend troponins, check BNP, TSH, mag, FLP. Give ASA 243. #CHF Echo (2019) EF 50-55% with diastolic dysfunction Severe MR, mild TR. Recently started metolazone by PCP Reports a 16 pound weight loss since starting metolazone. A: no LEs on examination. Check BNP Fluid restriction, daily weights, low-sodium diet Consult cardiology and heart failure team Echocardiogram. Continue home dose baby aspirin, Lasix. - receiving IVF with dextrose maintenance rate. Hold home dose metolazone. #DM2 Takes glimepiride, Januvia, Trulicity at home. We will hold home antihyperglycemic's for now. Accu-Cheks every 1 hour. #HTN Presented hypertensive. Restart home dose amlodipine, losartan. Continue monitor BP #HLD Check FLP. Restart home dose atorvastatin. SCDs for DVT prophylaxis. No GI prophylaxis. CODE STATUS is full code. Contact is, daughter, Sarai at [phone]. Discussed the case with attending physician, Dr. Roland, agrees with plan of care.
[2020-06-02] MEDS ORDERED: Dextrose 5% in Water 1,000 ML IV PRN (18:40)
[2020-06-02] MEDS ORDERED: HumaLOG 300 UNITS/3 ML VIAL SC PRN ×2 (18:40)
[2020-06-02] MEDS ORDERED: Dextrose 50% Abboject 50 ML SYRINGE SLOW IVP PRN (18:40)
[2020-06-02] MEDS ORDERED: Nitroglycerin 0.4 MG TAB (25 Tab Bottle) SL PRN (18:41)
[2020-06-02] MEDS ORDERED: Aspirin Chewable 81 MG TAB ONE (19:13)
[2020-06-02] MEDS ORDERED: Atorvastatin Calcium 10 MG TAB PO SCH (21:00)
[2020-06-02 21:10] LABS: Anion Gap 16 mmol/L (10-20); BUN (Urea Nitrogen) 19 mg/dL (9.8-20.1); Calc. Creatinine Clearance 0 mL/min (70-130); Carbon Dioxide 27 mmol/L (23-31); Chloride 96 mmol/L (98-107); Sodium 136 mmol/L (136-145)
[2020-06-02 21:17] LABS: Glucose 25 mg/dL (83-110); Potassium 2.7 mmol/L (3.5-5.1)
[2020-06-02] MEDS ORDERED: Hydrocortisone Sod Succ/PF 100 mg/2 ml Vial IVP SCH (21:45)
[2020-06-02] MEDS ORDERED: Hydrocortisone Sod Succ/PF 100 mg/2 ml Vial ONE (21:48)
[2020-06-03 00:22] LABS: Anion Gap 14 mmol/L (10-20); BUN (Urea Nitrogen) 20 mg/dL (9.8-20.1); Calc. Creatinine Clearance 0 mL/min (70-130); Carbon Dioxide 27 mmol/L (23-31); Chloride 97 mmol/L (98-107); Glucose 168 mg/dL (83-110); Potassium 3.2 mmol/L (3.5-5.1); Sodium 135 mmol/L (136-145)
[2020-06-03 00:25] LABS: Troponin I 0.122 ng/mL (< 0.028)
[2020-06-03] MEDS ORDERED: Furosemide 20 MG TAB PO SCH (07:30)
[2020-06-03] MEDS ORDERED: Aspirin Chewable 81 MG TAB PO SCH (09:00)
[2020-06-03] MEDS ORDERED: Losartan 25 MG TAB PO SCH (09:00)
--- NOTE | 2020-06-04 07:24 | EKG ---
Test Reason : HYPOGLYCEMIA Blood Pressure : / mmHG Vent. Rate : 068 BPM Atrial Rate : 101 BPM P-R Int : 000 ms QRS Dur : 150 ms QT Int : 468 ms P-R-T Axes : 000 -80 024 degrees QTc Int : 497 ms Wide QRS rhythm with occasional Premature ventricular complexes rhythm is regular Left axis deviation Right bundle branch block Possible Inferior infarct , age undetermined Abnormal ECG Confirmed by DR. Marcella HERNANDEZ ([id number]) on 06/04/2020 7:23:51 AM Referred By: Confirmed By:DR. Marcella HERNANDEZ
--- NOTE | 2020-06-06 20:02 | PQF ---
CLINICAL DOCUMENTATION CLARIFICATION FORM: Dear : Wilmer Roland MD Date / Time: 06/07/2020 Please exercise your independent, professional judgment in responding to the clarification form. Clinical indicators are provided on the bottom of this form for your review Please check appropriate box(es): HEART FAILURE: A. ACUITY [ ] Acute [ x ] Acute on Chronic [ ] Chronic B. TYPE: [ ] Systolic / HFrEF [ x ] Diastolic / HFpEF [ ] Combined Systolic / Diastolic [ ] Hypertensive Heart and Kidney disease [ ] Hypertensive Heart Disease [ ] Hypertensive Kidney Disease [ ] Other diagnosis (Please specify if any) [ ] Unable to determine In addition, please specify: Present on Admission (POA): [ x ] Yes [ ] No [ ] Unable to determine Physician Signature: Date/Time: For continuity of documentation, please document condition throughout progress notes and discharge summary. Thank You To be completed by CDI/Coding staff for physician review: Present Clinical Indicators - Signs / Symptoms / Labs Results and Location in Medical Record [x] Ejection Fraction =50 -55% with diastolic dysfunction H&P on 06/02 [x] CHF H&P on 06/02 [ ] Peripheral edema [x] Elevated BNP 2049.3 Laboratory on 06/02 [ ] JVD [ ] Orthopnea / SOB / dyspnea [x] Right pleural fluid has decreased slightly since the prior exam Chest x ray on 06/02 [x] CXR results-cardiomegaly & other findings are otherwise stable Chest x ray on 06/02 [ ] Arrhythmia--tachycardia Present Risk Factors Results and Location in Medical Record [ ] History of CAD/ischemic heart disease [x] Hypertension H&P on 06/02 [ ] History of [place] Present Treatments Results and Location in Medical Record [x] Fluid restriction, daily weights, low sodium diet [ ] Cardiac monitoring / telemetry/ECHO [x] Lasix 20 mg PO Continued from home on 06/03 [ ] Oxygen [ ] AICD [ ] Cardiology Consult CDS/Public Works Laborer Signature: AAS Phone #: Date/Time: 06/07/2020 This is a permanent part of the Medical Record [facility]
== END 2020-06-02 23:59 | disposition short-term general hospital (02) | DRG 637 ==
LOC: ERS 16:27 → ERHOLD 18:46
PROVIDERS: ADMIT Internal Medicine; ATTEND Internal Medicine
DX: E11.649 Type 2 diabetes mellitus with hypoglycemia without coma (principal); I50.33 Acute on chronic diastolic (congestive) heart failure; I11.0 Hypertensive heart disease with heart failure; E87.6 Hypokalemia; Z96.643 Presence of artificial hip joint, bilateral; Z90.49 Acquired absence of other specified parts of digestive tract; Z88.8 Allergy status to other drugs, medicaments and biological substances; Z79.899 Other long term (current) drug therapy; Z79.82 Long term (current) use of aspirin; E78.5 Hyperlipidemia, unspecified; R77.8 Other specified abnormalities of plasma proteins
CPT/HCPCS: 36415; 36416; 51701; 71045; 80053; 81003; 82553; 83735; 83880; 84443; 84484; 85025; 93005; 94760; 96365; 96366; 96375; J1720; J2354; J3480

== ENCOUNTER 2020-11-02 17:53 | Inpatient (IN) | payer MEDICARE, BC ==
[2020-11-02 19:36] LABS: #Basophils 0.1 thou/uL (0.0-0.2); #Eosinphils 0.1 thou/uL (0.0-0.7); #Lymphocytes 1.7 thou/uL (1.20-3.40); #Monocytes 0.7 thou/uL (0.11-0.59); #Neutrophils 4.1 thou/uL (1.40-6.50); %Basophils 1.5 % (0.0-1.0); %Eosinophils 1.8 % (0.0-10.0); %Lymphocytes 24.9 % (21.0-51.0); %Monocytes 10.9 % (0.0-10.0); %Neutrophils 60.9 % (42.0-75.0); Hemoglobin 6.1 g/dL (12.0-16.0); Mean Corpuscular Hemoglobin 28.1 pg (27.0-31.0); Mean Corpuscular Volume 87.8 fL (78.0-98.0); RBC Distribution Width 23.3 % (11.5-14.5); Red Blood Cell (RBC) Count 2.17 mill/uL (4.20-5.40); White Blood Cell (WBC) Count 6.8 thou/uL (4.8-10.8)
[2020-11-02 19:51] LABS: ALT (SGPT) 10 U/L (8-55); AST (SGOT) 23 U/L (5-34); Albumin 3.4 g/dL (3.4-4.8); Alkaline Phosphatase 179 U/L (40-110); Anion Gap 29 mmol/L (10-20); Anisocytosis MODERATE=16-30 cells (100X) (0-5/hpf); BUN (Urea Nitrogen) 60 mg/dL (9.8-20.1); Basophilic Stippling SLIGHT = 1-2 cells (100X) (None Seen); Burr Cells SLIGHT = 2-5 cells (100X) (0-1/hpf); Calc. Creatinine Clearance 0 mL/min (70-130); Calcium 9.4 mg/dL (7.8-10.44); Chloride 107 mmol/L (98-107); Globulin 3.3 g/dL (2.4-3.5); Glucose 192 mg/dL (83-110); Lipase 115 U/L (8-78); MDiff Complete? YES; Ovalocytes SLIGHT = 2-5 cells (100X) (0-1/hpf); Platelet Clumps SLIGHT; Platelet Morphology Comment PLT clumps seen-ADEQ; Poikilocytosis SLIGHT = 6-15 cells (100X) (0-5/hpf); Polychromasia MODERATE = 3-4 cells (100X) (0-2/hpf); Potassium 3.8 mmol/L (3.5-5.1); Protein, Total 6.7 g/dL (5.8-8.1); Schistocytes SLIGHT = 2-5 cells (100X) (0-1/hpf); Sodium 140 mmol/L (136-145); Target Cells SLIGHT = 2-5 cells (100X) (0-1/hpf)
[2020-11-02 20:08] LABS: Carbon Dioxide 8 mmol/L (23-31)
[2020-11-02 20:10] LABS: CKMB 2.4 ng/mL (0-6.6)
[2020-11-02 21:00] LABS: Bilirubin Negative (Negative); Blood, Urine Negative (Negative); Clarity Clear (Clear); Glucose, Urine (Dipstick) Normal (Negative); Ketone, Urine Negative (Negative); Leukocyte 250 Leu/uL (Negative); Nitrite Negative (Negative); Protein, Urine (Dipstick) Negative (Neg-Trace); RBC/HPF 0-3 HPF (0-3); Specific Gravity, Urine 1.017 (1.002-1.036); Squamous Epithelial 0-3 HPF (0-3); WBC/HPF 0-3 HPF (0-3); pH, Urine 5.5 (5.0-9.0)
[2020-11-02 21:06] LABS: Bacteria/HPF Rare-Few HPF (None Seen)
[2020-11-02] MEDS ORDERED: Pantoprazole 40 MG VIAL ONE (21:20)
[2020-11-02] MEDS ORDERED: Senokot S 8.6-50 MG TAB PO PRN (22:15)
[2020-11-02] MEDS ORDERED: Dextrose 50% Abboject 50 ML SYRINGE SLOW IVP PRN (22:17)
[2020-11-02] MEDS ORDERED: Dextrose 5% in Water 1,000 ML IV PRN (22:17)
[2020-11-02] MEDS ORDERED: HumaLOG 300 UNITS/3 ML VIAL SC PRN (22:17)
[2020-11-02 23:01] LABS: Iron 23 ug/dL (50-170); Iron Binding Capacity, Total 344 mcg/dL (265-497)
[2020-11-02 23:03] LABS: Troponin I 0.067 ng/mL (< 0.028)
[2020-11-02 23:04] LABS: Iron 23 ug/dL (50-170); Iron Binding Capacity, Total 345 mcg/dL (265-497)
[2020-11-02 23:10] LABS: Anion Gap 20 mmol/L (10-20); BUN (Urea Nitrogen) 59 mg/dL (9.8-20.1); Calc. Creatinine Clearance 0 mL/min (70-130); Calcium 8.9 mg/dL (7.8-10.44); Carbon Dioxide 15 mmol/L (23-31); Chloride 109 mmol/L (98-107); Glucose 154 mg/dL (83-110); Potassium 3.7 mmol/L (3.5-5.1); Sodium 140 mmol/L (136-145)
[2020-11-02] MEDS ORDERED: diphenhydrAMINE 50 MG/ML VIAL ONE (23:26)
[2020-11-03 01:10] LABS: Troponin I 0.053 ng/mL (< 0.028)
[2020-11-03] MEDS: Acetaminophen 325 MG TAB PO PRN (02:51)
[2020-11-03] MEDS: Pantoprazole 80 MG in Sodium Chloride 0.9% 100 ML IVPB SCH ×2 (04:09→15:58)
[2020-11-03 05:15] LABS: Hemoglobin 7.3 g/dL (12.0-16.0); Mean Corpuscular Hemoglobin 26.5 pg (27.0-31.0); Mean Corpuscular Volume 88.5 fL (78.0-98.0); Red Blood Cell (RBC) Count 2.75 mill/uL (4.20-5.40); White Blood Cell (WBC) Count 8.3 thou/uL (4.8-10.8)
[2020-11-03 05:16] LABS: RBC Distribution Width 21.2 % (11.5-14.5)
[2020-11-03 05:29] LABS: Anion Gap 15 mmol/L (10-20); BUN (Urea Nitrogen) 55 mg/dL (9.8-20.1); Calc. Creatinine Clearance 34 mL/min (70-130); Carbon Dioxide 16 mmol/L (23-31); Chloride 111 mmol/L (98-107); Glucose 175 mg/dL (83-110); Potassium 3.6 mmol/L (3.5-5.1); Sodium 138 mmol/L (136-145)
[2020-11-03 05:36] LABS: #Eosinphils 0.1 thou/uL (0.0-0.7); #Lymphocytes 1.6 thou/uL (1.20-3.40); #Neutrophils 5.5 thou/uL (1.40-6.50); %Basophils 0.6 % (0.0-1.0); %Eosinophils 1.1 % (0.0-10.0); %Lymphocytes 19.4 % (21.0-51.0); %Monocytes 12.1 % (0.0-10.0); %Neutrophils 66.9 % (42.0-75.0); Platelet Morphology Comment PLT clumps seen-ADEQ
[2020-11-03] MEDS: Sodium Chloride 0.9% 1,000 ML IV SCH (12:51)
[2020-11-03 14:01] VITALS: BMI 27.8
[2020-11-03 17:10] LABS: Hemoglobin 7.5 g/dL (12.0-16.0)
[2020-11-03] MEDS ORDERED: PROPOFOL 200 MG/20 ML VIAL ONE (18:02)
[2020-11-03] MEDS ORDERED: Lidocaine 1% PF 5 ML VIAL ONE (18:02)
[2020-11-03] MEDS ORDERED: GoLYTELY 4,000 ml Bottle PO SCH (22:00)
[2020-11-04] MEDS: Pantoprazole 80 MG in Sodium Chloride 0.9% 100 ML IVPB SCH (02:48)
[2020-11-04] MEDS: Sodium Chloride 0.9% 1,000 ML IV SCH ×3 (02:48→19:23)
[2020-11-04] MEDS: Acetaminophen 325 MG TAB PO PRN (02:49)
[2020-11-04] MEDS ORDERED: GoLYTELY 4,000 ml Bottle PO SCH (04:15)
[2020-11-04 05:28] LABS: #Eosinphils 0.1 thou/uL (0.0-0.7); #Lymphocytes 1.6 thou/uL (1.20-3.40); #Monocytes 0.8 thou/uL (0.11-0.59); #Neutrophils 4.6 thou/uL (1.40-6.50); %Basophils 0.5 % (0.0-1.0); %Lymphocytes 22.2 % (21.0-51.0); %Monocytes 11.4 % (0.0-10.0); %Neutrophils 63.9 % (42.0-75.0); Band 1 % (5-11); Eosinophils 1 % (0-10); Hemoglobin 8.2 g/dL (12.0-16.0); Hypochromia SLIGHT = 6-15 cells (100X) (0-5/hpf); Lymphocytes 21 % (21-51); MDiff Complete? YES; Mean Corpuscular HGB CONC 32.1 g/dL (32.0-36.0); Mean Corpuscular Hemoglobin 28.3 pg (27.0-31.0); Monocytes 6 % (0-10); Neutrophil 71 % (42-75); Nucleated RBC 1 % (0); Platelet Morphology Comment PLT clumps seen-ADEQ; RBC Distribution Width 21.7 % (11.5-14.5); Red Blood Cell (RBC) Count 2.89 mill/uL (4.20-5.40); White Blood Cell (WBC) Count 7.2 thou/uL (4.8-10.8)
[2020-11-04 05:33] LABS: Anion Gap 18 mmol/L (10-20); BUN (Urea Nitrogen) 38 mg/dL (9.8-20.1); Calc. Creatinine Clearance 37 mL/min (70-130); Calcium 9.2 mg/dL (7.8-10.44); Carbon Dioxide 17 mmol/L (23-31); Chloride 109 mmol/L (98-107); Glucose 160 mg/dL (83-110); Potassium 3.6 mmol/L (3.5-5.1); Sodium 140 mmol/L (136-145)
[2020-11-04] MEDS ORDERED: Promethazine HCl 25 MG/ML VIAL IVPB PRN (08:50)
[2020-11-04] MEDS ORDERED: Promethazine HCl 25 MG/ML VIAL IM PRN (08:50)
[2020-11-04] MEDS ORDERED: Ondansetron HCl/PF 4 MG/2 ML Vial IVP PRN (08:50)
[2020-11-04] MEDS ORDERED: Pantoprazole 40 MG VIAL IVP SCH (09:00)
[2020-11-04] MEDS ORDERED: PROPOFOL 200 MG/20 ML VIAL ONE (09:05)
[2020-11-04] MEDS ORDERED: Glycopyrrolate 0.2 MG/ML 5 ML SYRINGE ONE (09:05)
[2020-11-04] MEDS ORDERED: Lidocaine 1% PF 5 ML VIAL ONE (09:05)
[2020-11-04] MEDS ORDERED: Ondansetron PF 4 MG/2 ML Vial ONE (09:49)
[2020-11-04] MEDS: HumaLOG 300 UNITS/3 ML VIAL SC PRN (17:18)
[2020-11-04] MEDS: Pantoprazole 40 MG VIAL IVP SCH (21:07)
[2020-11-05] MEDS: Acetaminophen 325 MG TAB PO PRN (04:37)
[2020-11-05 05:15] LABS: #Eosinphils 0.1 thou/uL (0.0-0.7); #Lymphocytes 1.7 thou/uL (1.20-3.40); #Monocytes 0.9 thou/uL (0.11-0.59); #Neutrophils 5.4 thou/uL (1.40-6.50); %Basophils 0.5 % (0.0-1.0); %Eosinophils 1.6 % (0.0-10.0); %Monocytes 11.5 % (0.0-10.0); %Neutrophils 65.4 % (42.0-75.0); Hemoglobin 6.5 g/dL (12.0-16.0); Mean Corpuscular HGB CONC 31.9 g/dL (32.0-36.0); Mean Corpuscular Volume 87.5 fL (78.0-98.0); RBC Distribution Width 22.5 % (11.5-14.5); Red Blood Cell (RBC) Count 2.33 mill/uL (4.20-5.40); White Blood Cell (WBC) Count 8.2 thou/uL (4.8-10.8)
[2020-11-05 05:20] LABS: ALT (SGPT) 11 U/L (8-55); AST (SGOT) 22 U/L (5-34); Albumin 3.2 g/dL (3.4-4.8); Alkaline Phosphatase 170 U/L (40-110); Anion Gap 15 mmol/L (10-20); BUN (Urea Nitrogen) 28 mg/dL (9.8-20.1); Bilirubin, Total 0.9 mg/dL (0.2-1.2); Calc. Creatinine Clearance 39 mL/min (70-130); Calcium 8.7 mg/dL (7.8-10.44); Carbon Dioxide 16 mmol/L (23-31); Chloride 111 mmol/L (98-107); Globulin 3.3 g/dL (2.4-3.5); Glucose 188 mg/dL (83-110); Potassium 3.5 mmol/L (3.5-5.1); Protein, Total 6.5 g/dL (5.8-8.1); Sodium 138 mmol/L (136-145)
[2020-11-05 05:21] LABS: Platelet Morphology Comment PLT clumps seen-ADEQ
[2020-11-05] MEDS: HumaLOG 300 UNITS/3 ML VIAL SC PRN ×3 (06:20→17:23)
[2020-11-05] MEDS: Sodium Chloride 0.9% 1,000 ML IV SCH ×2 (09:33→23:01)
[2020-11-05] MEDS: Pantoprazole 40 MG VIAL IVP SCH ×2 (10:00→20:54)
[2020-11-05 15:55] LABS: Hemoglobin 7.7 g/dL (12.0-16.0)
[2020-11-06 05:04] LABS: #Eosinphils 0.3 thou/uL (0.0-0.7); #Lymphocytes 1.9 thou/uL (1.20-3.40); %Basophils 0.3 % (0.0-1.0); %Eosinophils 3.2 % (0.0-10.0); %Lymphocytes 20.3 % (21.0-51.0); %Monocytes 11.3 % (0.0-10.0); %Neutrophils 64.9 % (42.0-75.0); Band 2 % (5-11); Eosinophils 9 % (0-10); Hemoglobin 7.7 g/dL (12.0-16.0); Hypochromia SLIGHT = 6-15 cells (100X) (0-5/hpf); Lymphocytes 18 % (21-51); MDiff Complete? YES; Mean Corpuscular HGB CONC 32.5 g/dL (32.0-36.0); Mean Corpuscular Hemoglobin 29.2 pg (27.0-31.0); Mean Corpuscular Volume 89.8 fL (78.0-98.0); Mean Platelet Volume 11.8 fL (7.4-10.4); Monocytes 3 % (0-10); Neutrophil 68 % (42-75); Nucleated RBC 1 % (0); Platelet Count 157 thou/uL (130-400); Platelet Morphology Comment Appears Adequate; RBC Distribution Width 20.6 % (11.5-14.5); Red Blood Cell (RBC) Count 2.63 mill/uL (4.20-5.40); White Blood Cell (WBC) Count 9.2 thou/uL (4.8-10.8)
[2020-11-06 05:38] LABS: ALT (SGPT) 11 U/L (8-55); AST (SGOT) 22 U/L (5-34); Alkaline Phosphatase 164 U/L (40-110); Anion Gap 11 mmol/L (10-20); BUN (Urea Nitrogen) 21 mg/dL (9.8-20.1); Bilirubin, Total 1.7 mg/dL (0.2-1.2); Calc. Creatinine Clearance 45 mL/min (70-130); Calcium 8.7 mg/dL (7.8-10.44); Carbon Dioxide 20 mmol/L (23-31); Chloride 111 mmol/L (98-107); Globulin 3.3 g/dL (2.4-3.5); Glucose 126 mg/dL (83-110); Potassium 3.8 mmol/L (3.5-5.1); Protein, Total 6.3 g/dL (5.8-8.1); Sodium 138 mmol/L (136-145)
[2020-11-06] MEDS ORDERED: GUAIFENESIN SF SOLN 200 MG/10 ML UDCUP PO PRN (08:10)
[2020-11-06] MEDS ORDERED: Sodium Chloride 0.65% Nasal 44 ML BOT EA NARE PRN (08:10)
[2020-11-06] MEDS ORDERED: HYDROcodone/Acetaminophen 5/325 mg Tablet PO PRN (08:10)
[2020-11-06] MEDS ORDERED: Loratadine 10 MG TAB PO PRN (08:10)
[2020-11-06] MEDS ORDERED: Calcium Carbonate 500 MG ChewTAB PO PRN (08:10)
[2020-11-06] MEDS ORDERED: Ondansetron PF 4 MG/2 ML Vial IVP PRN (08:10)
[2020-11-06] MEDS ORDERED: Ondansetron ODT 4 MG TAB SL PRN (08:10)
[2020-11-06] MEDS ORDERED: hydrALAZINE 20 MG/ML VIAL SLOW IVP PRN (08:10)
[2020-11-06] MEDS ORDERED: Cepastat Lozenges 1 LOZ PO PRN (08:10)
[2020-11-06] MEDS ORDERED: Loperamide HCl 2 MG CAP PO PRN (08:10)
[2020-11-06] MEDS ORDERED: Bisacodyl 5 MG TAB PO PRN (08:10)
[2020-11-06] MEDS ORDERED: Melatonin 3 MG TAB PO PRN (08:11)
[2020-11-06] MEDS: Pantoprazole 40 MG VIAL IVP SCH (08:25)
[2020-11-06 11:33] VITALS: BP 161/64; TEMP 98.6
== END 2020-11-06 14:27 | disposition home or self-care (01) | DRG 378 ==
LOC: ERS 17:53 → 2NO 20:58
PROVIDERS: ADMIT Internal Medicine; ATTEND Internal Medicine
PROC: 30233N1 Transfusion of Nonautologous Red Blood Cells into Peripheral Vein, Percutaneous Approach (ICD-10-PCS; principal; 2020-11-02)
PROC: 0DB78ZZ Excision of Stomach, Pylorus, Via Natural or Artificial Opening Endoscopic (ICD-10-PCS; 2020-11-03)
PROC: 0DBM8ZZ Excision of Descending Colon, Via Natural or Artificial Opening Endoscopic (ICD-10-PCS; 2020-11-04)
DX: K92.1 Melena (principal); D62 Acute posthemorrhagic anemia; N17.9 Acute kidney failure, unspecified; I50.32 Chronic diastolic (congestive) heart failure; I24.8 Other forms of acute ischemic heart disease; I13.0 Hypertensive heart and chronic kidney disease with heart failure and stage 1 through stage 4 chronic kidney disease, or unspecified chronic kidney disease; E78.5 Hyperlipidemia, unspecified; E11.22 Type 2 diabetes mellitus with diabetic chronic kidney disease; I48.91 Unspecified atrial fibrillation; E86.0 Dehydration; E53.8 Deficiency of other specified B group vitamins; K31.7 Polyp of stomach and duodenum; K29.40 Chronic atrophic gastritis without bleeding; K64.4 Residual hemorrhoidal skin tags; K64.8 Other hemorrhoids; E86.1 Hypovolemia; N18.2 Chronic kidney disease, stage 2 (mild); I34.0 Nonrheumatic mitral (valve) insufficiency; D12.4 Benign neoplasm of descending colon; Z88.8 Allergy status to other drugs, medicaments and biological substances; Z79.899 Other long term (current) drug therapy; Z79.84 Long term (current) use of oral hypoglycemic drugs; Z90.49 Acquired absence of other specified parts of digestive tract; Z79.01 Long term (current) use of anticoagulants; Z79.82 Long term (current) use of aspirin; Z86.16 Personal history of COVID-19
CPT/HCPCS: 36415; 36416; 36430; 71045; 80048; 80053; 81003; 81015; 82553; 82728; 83540; 83550; 83690; 83735; 83880; 84484; 85025; 86850; 86900; 86901; 88305; 93005; 96374; C9113; J1200; J2405; J2704; J3490; P9016

== ENCOUNTER 2020-12-30 13:00 | Inpatient (IN) | payer MEDICARE, BC ==
[2020-12-30 14:19] LABS: ALT (SGPT) 22 U/L (8-55); AST (SGOT) 35 U/L (5-34); Albumin 3.6 g/dL (3.4-4.8); Alkaline Phosphatase 329 U/L (40-110); Anion Gap 14 mmol/L (10-20); BUN (Urea Nitrogen) 22 mg/dL (9.8-20.1); Bilirubin, Total 1.6 mg/dL (0.2-1.2); Calc. Creatinine Clearance 0 mL/min (70-130); Calcium 9.8 mg/dL (7.8-10.44); Carbon Dioxide 25 mmol/L (23-31); Chloride 108 mmol/L (98-107); Glucose 113 mg/dL (83-110); Potassium 3.7 mmol/L (3.5-5.1); Protein, Total 7.6 g/dL (5.8-8.1); Sodium 143 mmol/L (136-145)
[2020-12-30 14:29] LABS: INR-International Normal Ratio 1.2; Prothrombin Time 13.1 sec (9.5-12.1)
[2020-12-30 14:34] LABS: Hemoglobin 9.9 g/dL (12.0-15.5); Mean Corpuscular HGB CONC 30.5 g/dL (32.0-36.0); Mean Corpuscular Hemoglobin 28.4 pg (27.0-33.0); Mean Corpuscular Volume 93.1 fl (81.6-98.3); RBC Distribution Width 22.5 % (11.5-14.5); Red Blood Cell (RBC) Count 3.49 10x6/uL (3.90-5.03)
[2020-12-31 07:42] LABS: SARS-CoV-2 PCR by NAA Not Detected (NotDetected)
[2021-01-01 13:22] VITALS: BMI 26.5
[2021-01-02] MEDS ORDERED: Heparin 10,000 UNITS/ 10 ML VIAL ONE ×2 (06:36→06:47)
[2021-01-02] MEDS ORDERED: Lidocaine 1% PF 5 ML VIAL ONE (07:24)
[2021-01-02] MEDS ORDERED: Rocuronium Bromide 10 MG/ML (10ML VIAL) ONE (07:24)
[2021-01-02] MEDS ORDERED: Glycopyrrolate 0.2 MG/ML 5 ML SYRINGE ONE (07:24)
[2021-01-02] MEDS ORDERED: PROPOFOL 200 MG/20 ML VIAL ONE (07:24)
[2021-01-02] MEDS ORDERED: Fentanyl 100 MCG/2 ML VIAL ONE ×2 (07:26→11:12)
[2021-01-02] MEDS ORDERED: Phenylephrine 10 MG/ML VIAL ONE (07:27)
[2021-01-02] MEDS ORDERED: Protamine Sulfate 50 MG/5 ML VIAL ONE (09:00)
[2021-01-02] MEDS ORDERED: Iopamidol 370 76% 100 ML VIAL ONE (10:07)
[2021-01-02] MEDS ORDERED: Ondansetron PF 4 MG/2 ML Vial ONE (10:19)
== END 2021-01-02 14:47 | disposition home or self-care (01) | DRG 274 ==
LOC: SURG A 01-02 05:32
PROVIDERS: ADMIT Internal Medicine Cardiovascular Disease; ATTEND Internal Medicine Cardiovascular Disease
PROC: 02L73DK Occlusion of Left Atrial Appendage with Intraluminal Device, Percutaneous Approach (ICD-10-PCS; principal; 2021-01-02)
PROC: B24BYZZ Ultrasonography of Heart with Aorta using Other Contrast (ICD-10-PCS; 2021-01-02)
DX: I48.21 Permanent atrial fibrillation (principal); K92.2 Gastrointestinal hemorrhage, unspecified; Z00.6 Encounter for examination for normal comparison and control in clinical research program; Z20.822 Contact with and (suspected) exposure to COVID-19; I10 Essential (primary) hypertension; E78.5 Hyperlipidemia, unspecified; I11.0 Hypertensive heart disease with heart failure; I50.9 Heart failure, unspecified; D64.9 Anemia, unspecified; E11.9 Type 2 diabetes mellitus without complications; M19.90 Unspecified osteoarthritis, unspecified site; Z79.01 Long term (current) use of anticoagulants; Z79.899 Other long term (current) drug therapy
CPT/HCPCS: 33340; 36430; 71275; 76942; 80053; 85027; 85347; 85610; 86850; 86900; 86901; 93005; 93010; 93312; 93662; C1759; J1644; J2370; J2405; J2704; J2720; J3010; Q9967; U0003; U0005

== ENCOUNTER 2020-12-30 13:00 | Outpatient (CLI) | payer MEDICARE, BC | END 2020-12-30 13:01 | disposition home or self-care (01) | LOC: LABBT 13:00 | PROVIDERS: ATTEND Internal Medicine Cardiovascular Disease | DX: Z01.812 Encounter for preprocedural laboratory examination (principal); I48.21 Permanent atrial fibrillation; K92.2 Gastrointestinal hemorrhage, unspecified; Z20.822 Contact with and (suspected) exposure to COVID-19 | CPT/HCPCS: 80053; 85027; 85610; 86850; 86900; 86901; 86920; U0003; U0005 ==

== ENCOUNTER 2021-02-13 13:12 | Outpatient (CLI) | payer MEDICARE, BC ==
[2021-02-13 16:01] LABS: INR-International Normal Ratio 1.2
[2021-02-13 16:04] LABS: Anion Gap 16 mmol/L (10-20); BUN (Urea Nitrogen) 31 mg/dL (9.8-20.1); Calc. Creatinine Clearance 0 mL/min (70-130); Calcium 10.4 mg/dL (7.8-10.44); Carbon Dioxide 23 mmol/L (23-31); Chloride 106 mmol/L (98-107); Glucose 203 mg/dL (83-110); Sodium 141 mmol/L (136-145)
[2021-02-13 16:05] LABS: Hemoglobin 9.9 g/dL (12.0-15.5); Mean Corpuscular HGB CONC 30.5 g/dL (32.0-36.0); Mean Corpuscular Hemoglobin 27.9 pg (27.0-33.0); Mean Corpuscular Volume 91.5 fl (81.6-98.3); Platelet Count 164 10x3/uL (150-450); RBC Distribution Width 21.6 % (11.5-14.5); Red Blood Cell (RBC) Count 3.55 10x6/uL (3.90-5.03); White Blood Cell (WBC) Count 5.4 10x3/uL (3.5-10.5)
[2021-02-14 08:32] LABS: SARS-CoV-2 PCR by NAA Not Detected (NotDetected)
== END 2021-02-13 13:13 | disposition home or self-care (01) ==
LOC: LABBT 13:12
PROVIDERS: ATTEND Internal Medicine Cardiovascular Disease
DX: Z01.812 Encounter for preprocedural laboratory examination (principal); I48.21 Permanent atrial fibrillation; Z95.818 Presence of other cardiac implants and grafts; Z20.822 Contact with and (suspected) exposure to COVID-19
CPT/HCPCS: 80048; 85027; 85610; U0003; U0005

== ENCOUNTER 2021-02-18 05:48 | Day surgery (SDC) | payer MEDICARE, BC ==
[2021-02-14 12:55] VITALS: BMI 27.3
[2021-02-18] MEDS ORDERED: Ketamine 50 MG/ML (10ML VIAL) ONE (07:13)
[2021-02-18] MEDS ORDERED: PROPOFOL 20 ML ONE (07:13)
[2021-02-18] MEDS ORDERED: PHENYLEPHRINE-NS 100 MCG/ML 10 ML SYRINGE ONE (07:33)
[2021-02-18] MEDS ORDERED: Fentanyl 100 MCG/2 ML VIAL ONE (08:10)
== END 2021-02-18 10:52 | disposition home or self-care (01) ==
LOC: CCL 05:48
PROVIDERS: ATTEND Internal Medicine Cardiovascular Disease
PROC: B246ZZ4 Ultrasonography of Right and Left Heart, Transesophageal (ICD-10-PCS; principal; 2021-02-18)
PROC: B24CZZ4 Ultrasonography of Pericardium, Transesophageal (ICD-10-PCS; 2021-02-18)
DX: I48.21 Permanent atrial fibrillation (principal); I08.1 Rheumatic disorders of both mitral and tricuspid valves; I11.9 Hypertensive heart disease without heart failure; I50.32 Chronic diastolic (congestive) heart failure; E11.9 Type 2 diabetes mellitus without complications; E78.5 Hyperlipidemia, unspecified; Z79.01 Long term (current) use of anticoagulants; Z79.82 Long term (current) use of aspirin; Z79.84 Long term (current) use of oral hypoglycemic drugs; Z79.899 Other long term (current) drug therapy; Z88.8 Allergy status to other drugs, medicaments and biological substances; Z95.818 Presence of other cardiac implants and grafts
CPT/HCPCS: 93312; J2704; J3010

== ENCOUNTER 2021-04-05 18:33 | Emergency (ER) | payer MEDICARE, BC | END 2021-04-05 20:40 | disposition home or self-care (01) | LOC: ERS 18:33 | DX: S06.0X0A Concussion without loss of consciousness, initial encounter (principal); E78.5 Hyperlipidemia, unspecified; I11.0 Hypertensive heart disease with heart failure; I50.9 Heart failure, unspecified; W22.8XXA Striking against or struck by other objects, initial encounter | CPT/HCPCS: 70450; 93005 ==

== ENCOUNTER 2021-08-25 15:22 | Inpatient (IN) | payer MEDICARE, BC ==
[2021-08-25 16:40] LABS: Hemoglobin 10.6 g/dL (12.0-16.0); Mean Corpuscular HGB CONC 30.5 g/dL (32.0-36.0); Mean Corpuscular Hemoglobin 29.8 pg (27.0-31.0); Mean Corpuscular Volume 97.6 fL (78.0-98.0); RBC Distribution Width 21.7 % (11.5-14.5); Red Blood Cell (RBC) Count 3.56 mill/uL (4.20-5.40); White Blood Cell (WBC) Count 5.3 thou/uL (4.8-10.8)
[2021-08-25 16:41] LABS: #Eosinphils 0.1 thou/uL (0.0-0.7); #Lymphocytes 1.2 thou/uL (1.20-3.40); #Monocytes 0.3 thou/uL (0.11-0.59); #Neutrophils 3.7 thou/uL (1.40-6.50); %Eosinophils 1.3 % (0.0-10.0); %Lymphocytes 22.3 % (21.0-51.0); %Monocytes 5.9 % (0.0-10.0); %Neutrophils 70.5 % (42.0-75.0)
[2021-08-25 17:03] LABS: Anisocytosis SLIGHT = 6-15 cells (100X) (0-5/hpf); MDiff Complete? YES; Platelet Clumps MODERATE; Platelet Morphology Comment PLT clumps seen-ADEQ; Polychromasia SLIGHT = 2-3 cells (100X) (0-2/hpf)
[2021-08-25 17:10] LABS: ALT (SGPT) 9 U/L (8-55); AST (SGOT) 28 U/L (5-34); Albumin 3.7 g/dL (3.4-4.8); Alkaline Phosphatase 248 U/L (40-110); Anion Gap 13 mmol/L (10-20); BUN (Urea Nitrogen) 32 mg/dL (9.8-20.1); Bilirubin, Total 1.2 mg/dL (0.2-1.2); Calc. Creatinine Clearance 0 mL/min (70-130); Calcium 10.6 mg/dL (7.8-10.44); Carbon Dioxide 24 mmol/L (23-31); Chloride 106 mmol/L (98-107); Globulin 4.2 g/dL (2.4-3.5); Glucose 273 mg/dL (83-110); Potassium 3.7 mmol/L (3.5-5.1); Protein, Total 7.9 g/dL (5.8-8.1); Sodium 139 mmol/L (136-145)
[2021-08-25 17:23] LABS: CKMB 2.7 ng/mL (0-6.6)
[2021-08-25] MEDS ORDERED: Furosemide 20 MG/2 ML VIAL ONE (19:05)
[2021-08-25] MEDS ORDERED: diphenhydrAMINE 25 MG CAP ONE (20:28)
[2021-08-25 22:31] VITALS: BMI 31.1
[2021-08-26] MEDS ORDERED: Acetaminophen 325 MG TAB PO PRN (02:43)
[2021-08-26] MEDS ORDERED: Ondansetron PF 4 MG/2 ML Vial IVP PRN (02:43)
[2021-08-26] MEDS ORDERED: HumaLOG 300 UNITS/3 ML VIAL SC PRN (02:47)
[2021-08-26] MEDS ORDERED: Dextrose 5% in Water 1,000 ML IV PRN (02:47)
[2021-08-26] MEDS ORDERED: Dextrose 50% Abboject 50 ML SYRINGE SLOW IVP PRN (02:47)
[2021-08-26] MEDS ORDERED: Gabapentin 300 MG CAP PO SCH (03:00)
[2021-08-26 05:02] LABS: Anion Gap 12 mmol/L (10-20); BUN (Urea Nitrogen) 29 mg/dL (9.8-20.1); Calc. Creatinine Clearance 34 mL/min (70-130); Calcium 10.5 mg/dL (7.8-10.44); Carbon Dioxide 27 mmol/L (23-31); Chloride 105 mmol/L (98-107); Glucose 163 mg/dL (83-110); Magnesium 1.9 mg/dL (1.6-2.6); Potassium 3.9 mmol/L (3.5-5.1); Sodium 140 mmol/L (136-145)
[2021-08-26] MEDS: Furosemide 40 MG/4 ML VIAL SLOW IVP SCH ×2 (05:15→18:57)
[2021-08-26 05:34] LABS: #Eosinphils 0.1 thou/uL (0.0-0.7); #Lymphocytes 1.6 thou/uL (1.20-3.40); #Monocytes 0.4 thou/uL (0.11-0.59); #Neutrophils 3.7 thou/uL (1.40-6.50); %Basophils 0.4 % (0.0-1.0); %Eosinophils 1.8 % (0.0-10.0); %Lymphocytes 26.9 % (21.0-51.0); %Monocytes 6.9 % (0.0-10.0); %Neutrophils 64.1 % (42.0-75.0); Hemoglobin 10.9 g/dL (12.0-16.0); Mean Corpuscular HGB CONC 31.3 g/dL (32.0-36.0); Mean Corpuscular Hemoglobin 30.7 pg (27.0-31.0); Mean Corpuscular Volume 97.9 fL (78.0-98.0); Platelet Count 62 thou/uL (130-400); RBC Distribution Width 21.3 % (11.5-14.5); Red Blood Cell (RBC) Count 3.57 mill/uL (4.20-5.40); White Blood Cell (WBC) Count 5.8 thou/uL (4.8-10.8)
[2021-08-26] MEDS: Losartan 25 MG TAB PO SCH (10:57)
[2021-08-26] MEDS: Nateglinide 120 MG TAB PO SCH ×3 (10:58→18:57)
[2021-08-26 12:51] LABS: SARS-CoV-2 PCR by NAA Not Detected (NotDetected)
[2021-08-26] MEDS: Gabapentin 300 MG CAP PO SCH (21:19)
[2021-08-27 04:23] LABS: #Eosinphils 0.1 thou/uL (0.0-0.7); #Lymphocytes 1.5 thou/uL (1.20-3.40); #Monocytes 0.4 thou/uL (0.11-0.59); #Neutrophils 3.1 thou/uL (1.40-6.50); %Eosinophils 1.7 % (0.0-10.0); %Lymphocytes 29.2 % (21.0-51.0); %Monocytes 7.9 % (0.0-10.0); %Neutrophils 61.1 % (42.0-75.0); Hemoglobin 10.1 g/dL (12.0-16.0); Mean Corpuscular HGB CONC 30.8 g/dL (32.0-36.0); Mean Corpuscular Hemoglobin 29.7 pg (27.0-31.0); Mean Corpuscular Volume 96.5 fL (78.0-98.0); Mean Platelet Volume 12.6 fL (7.4-10.4); Platelet Count 41 thou/uL (130-400); RBC Distribution Width 21.7 % (11.5-14.5); Red Blood Cell (RBC) Count 3.41 mill/uL (4.20-5.40); White Blood Cell (WBC) Count 5.1 thou/uL (4.8-10.8)
[2021-08-27 04:38] LABS: Anion Gap 14 mmol/L (10-20); BUN (Urea Nitrogen) 30 mg/dL (9.8-20.1); Calc. Creatinine Clearance 32 mL/min (70-130); Calcium 9.6 mg/dL (7.8-10.44); Carbon Dioxide 24 mmol/L (23-31); Chloride 104 mmol/L (98-107); Glucose 177 mg/dL (83-110); Magnesium 1.8 mg/dL (1.6-2.6); Potassium 3.8 mmol/L (3.5-5.1); Sodium 138 mmol/L (136-145)
[2021-08-27] MEDS: Furosemide 40 MG/4 ML VIAL SLOW IVP SCH ×2 (05:37→16:50)
[2021-08-27] MEDS: HumaLOG 300 UNITS/3 ML VIAL SC PRN ×3 (05:38→21:47)
[2021-08-27] MEDS: Nateglinide 120 MG TAB PO SCH ×3 (08:15→16:50)
[2021-08-27] MEDS: Losartan 25 MG TAB PO SCH (08:16)
[2021-08-27] MEDS: Gabapentin 300 MG CAP PO SCH (21:47)
[2021-08-28 04:43] LABS: Anion Gap 14 mmol/L (10-20); BUN (Urea Nitrogen) 35 mg/dL (9.8-20.1); Calc. Creatinine Clearance 32 mL/min (70-130); Calcium 9.3 mg/dL (7.8-10.44); Carbon Dioxide 25 mmol/L (23-31); Chloride 104 mmol/L (98-107); Glucose 127 mg/dL (83-110); Magnesium 1.9 mg/dL (1.6-2.6); Potassium 3.7 mmol/L (3.5-5.1); Sodium 139 mmol/L (136-145)
[2021-08-28] MEDS: Furosemide 40 MG/4 ML VIAL SLOW IVP SCH ×2 (06:22→12:56)
[2021-08-28 08:05] LABS: Hemoglobin 10.8 g/dL (12.0-16.0); Red Blood Cell (RBC) Count 3.61 mill/uL (4.20-5.40); White Blood Cell (WBC) Count 4.5 thou/uL (4.8-10.8)
[2021-08-28 08:33] LABS: Platelet Count 125 thou/uL (130-400)
[2021-08-28 08:39] LABS: Band 3 % (5-11); Eosinophils 2 % (0-10); Lymphocytes 33 % (21-51); MDiff Complete? YES; Mean Corpuscular HGB CONC 30.6 g/dL (32.0-36.0); Mean Corpuscular Hemoglobin 29.8 pg (27.0-31.0); Mean Corpuscular Volume 97.3 fL (78.0-98.0); Mean Platelet Volume 18.1 fL (7.4-10.4); Monocytes 6 % (0-10); Neutrophil 56 % (42-75); Platelet Clumps MARKED; Polychromasia SLIGHT = 2-3 cells (100X) (0-2/hpf); RBC Distribution Width 21.2 % (11.5-14.5)
[2021-08-28] MEDS: Losartan 25 MG TAB PO SCH (09:20)
[2021-08-28] MEDS: Nateglinide 120 MG TAB PO SCH ×3 (09:23→21:13)
[2021-08-28 10:26] LABS: INR-International Normal Ratio 1.2; PTT 39.8 sec (22.9-36.1); Prothrombin Time 15.4 sec (12.0-14.7)
[2021-08-28] MEDS ORDERED: Sodium Bicarbonate 2.5 MEQ/5 ML VIAL ONE (15:05)
[2021-08-28] MEDS ORDERED: Lidocaine 1% PF 5 ML VIAL ONE (15:05)
[2021-08-28 16:38] LABS: RBC Count-Automated (BF) 8767 /cu.mm; WBC/Nucleated-Auto (BF) 183 /cu.mm
[2021-08-28] MEDS ORDERED: Lidocaine 1% PF 5 ML VIAL FS SCH (16:45)
[2021-08-28 16:59] LABS: BF Color Red; Body Fluid Source Ascites Body Fluid; Clarity Cloudy/Turbid (Clear); Tube # EDTA
[2021-08-28 17:00] LABS: BF Segmented Neutrophils 3 %; Cell Count Non Hematic 54 %; Lymphocytes 43 %
[2021-08-28 19:26] LABS: Pleural Fluid, Protein 2.6 g/dL
[2021-08-28] MEDS: Gabapentin 300 MG CAP PO SCH (21:13)
[2021-08-28 21:37] LABS: RBC Count-Automated (BF) 1730 /cu.mm; WBC/Nucleated-Auto (BF) 226 /cu.mm
[2021-08-28 21:48] LABS: BF Color Yellow; Body Fluid Source Pleural Fluid; Clarity Clear (Clear)
[2021-08-28 21:49] LABS: Tube # 2
[2021-08-28 21:50] LABS: BF Segmented Neutrophils 11 %; Cell Count Non Hematic 57 %; Lymphocytes 32 %
[2021-08-29] MEDS: HumaLOG 300 UNITS/3 ML VIAL SC PRN ×2 (05:52→18:00)
[2021-08-29] MEDS: Furosemide 40 MG/4 ML VIAL SLOW IVP SCH (05:52)
[2021-08-29] MEDS: Nateglinide 120 MG TAB PO SCH ×2 (08:47→11:58)
[2021-08-29] MEDS: Furosemide 40 MG TAB PO SCH (08:47)
[2021-08-29] MEDS: Spironolactone 25 MG TAB PO SCH (08:47)
[2021-08-29] MEDS: Losartan 25 MG TAB PO SCH (08:51)
[2021-08-29] MEDS: Gabapentin 300 MG CAP PO SCH (21:08)
[2021-08-30] MEDS: HumaLOG 300 UNITS/3 ML VIAL SC PRN ×2 (05:51→11:58)
[2021-08-30] MEDS: Furosemide 40 MG TAB PO SCH (08:10)
[2021-08-30] MEDS: Losartan 25 MG TAB PO SCH (08:10)
[2021-08-30] MEDS: Spironolactone 25 MG TAB PO SCH (08:10)
[2021-08-30] MEDS ORDERED: Empagliflozin 10 MG TAB PO SCH (09:00)
[2021-08-30 11:30] VITALS: BP 124/58; TEMP 98.1
== END 2021-08-30 12:05 | disposition home health service (06) | DRG 291 ==
LOC: ERS 15:22 → 2NO 19:53
PROVIDERS: ADMIT Family Medicine; ATTEND Family Medicine
PROC: 0W993ZX Drainage of Right Pleural Cavity, Percutaneous Approach, Diagnostic (ICD-10-PCS; principal; 2021-08-28)
PROC: 0W9G3ZX Drainage of Peritoneal Cavity, Percutaneous Approach, Diagnostic (ICD-10-PCS; 2021-08-28)
DX: I13.0 Hypertensive heart and chronic kidney disease with heart failure and stage 1 through stage 4 chronic kidney disease, or unspecified chronic kidney disease (principal); I50.43 Acute on chronic combined systolic (congestive) and diastolic (congestive) heart failure; R18.8 Other ascites; J91.8 Pleural effusion in other conditions classified elsewhere; Z20.822 Contact with and (suspected) exposure to COVID-19; E78.5 Hyperlipidemia, unspecified; Z96.643 Presence of artificial hip joint, bilateral; N18.30 Chronic kidney disease, stage 3 unspecified; E11.22 Type 2 diabetes mellitus with diabetic chronic kidney disease; I48.91 Unspecified atrial fibrillation; D63.1 Anemia in chronic kidney disease; I34.0 Nonrheumatic mitral (valve) insufficiency; I42.9 Cardiomyopathy, unspecified; R16.0 Hepatomegaly, not elsewhere classified; E11.51 Type 2 diabetes mellitus with diabetic peripheral angiopathy without gangrene; D69.6 Thrombocytopenia, unspecified; Z88.8 Allergy status to other drugs, medicaments and biological substances; Z90.49 Acquired absence of other specified parts of digestive tract; Z79.899 Other long term (current) drug therapy; Z95.818 Presence of other cardiac implants and grafts; Z80.0 Family history of malignant neoplasm of digestive organs; Z82.49 Family history of ischemic heart disease and other diseases of the circulatory system; Z86.010 Personal history of colon polyps
CPT/HCPCS: 36415; 36416; 49083; 71045; 71046; 74176; 76700; 80048; 80076; 82042; 82553; 82945; 83615; 83735; 83880; 84157; 84484; 85025; 85060; 85610; 85730; 87070; 87205; 88112; 89051; 93005; 93306; 93923; 96374; G0306; J1815; J1940; U0003; U0005

== ENCOUNTER 2021-09-06 10:21 | Emergency (ER) | payer MEDICARE, BC ==
[2021-09-06 11:15] LABS: Hemoglobin 11.2 g/dL (12.0-16.0); Mean Corpuscular HGB CONC 31.3 g/dL (32.0-36.0); Mean Corpuscular Volume 95.7 fL (78.0-98.0); RBC Distribution Width 21.5 % (11.5-14.5); Red Blood Cell (RBC) Count 3.74 mill/uL (4.20-5.40); White Blood Cell (WBC) Count 5.5 thou/uL (4.8-10.8)
[2021-09-06 11:22] LABS: #Eosinphils 0.1 thou/uL (0.0-0.7); #Lymphocytes 1.8 thou/uL (1.20-3.40); #Monocytes 0.6 thou/uL (0.11-0.59); #Neutrophils 3.1 thou/uL (1.40-6.50); %Basophils 0.5 % (0.0-1.0); %Eosinophils 0.9 % (0.0-10.0); %Monocytes 11.1 % (0.0-10.0); %Neutrophils 55.5 % (42.0-75.0); Mean Platelet Volume 6.5 fL (7.4-10.4); Platelet Count 115 thou/uL (130-400); Platelet Morphology Comment Appears Adequate
[2021-09-06 11:26] LABS: ALT (SGPT) 14 U/L (8-55); AST (SGOT) 31 U/L (5-34); Albumin 3.6 g/dL (3.4-4.8); Alkaline Phosphatase 229 U/L (40-110); Anion Gap 15 mmol/L (10-20); BUN (Urea Nitrogen) 35 mg/dL (9.8-20.1); Bilirubin, Total 1.3 mg/dL (0.2-1.2); Calc. Creatinine Clearance 0 mL/min (70-130); Calcium 9.7 mg/dL (7.8-10.44); Carbon Dioxide 22 mmol/L (23-31); Chloride 105 mmol/L (98-107); Globulin 3.8 g/dL (2.4-3.5); Glucose 126 mg/dL (83-110); Lipase 160 U/L (8-78); Magnesium 2.4 mg/dL (1.6-2.6); Potassium 4.9 mmol/L (3.5-5.1); Protein, Total 7.4 g/dL (5.8-8.1); Sodium 137 mmol/L (136-145)
[2021-09-06 11:49] LABS: CKMB 2.6 ng/mL (0-6.6)
[2021-09-06 11:50] LABS: Bacteria/HPF None Seen HPF (None Seen); Bilirubin Negative (Negative); Blood, Urine Trace (Negative); Clarity Clear (Clear); Glucose, Urine (Dipstick) Greater than 1000 mg/dL (Negative); Ketone, Urine Negative (Negative); Leukocyte Negative Leu/uL (Negative); Nitrite Negative (Negative); Protein, Urine (Dipstick) Negative (Neg-Trace); Specific Gravity, Urine 1.015 (1.002-1.036); Squamous Epithelial 0-3 HPF (0-3); Urobilinogen Normal mg/dL (Less than 2); WBC/HPF 0-3 HPF (0-3)
[2021-09-06] MEDS ORDERED: Iopamidol-370 76% 500 ML 1 ML ONE (15:14)
== END 2021-09-06 12:27 | disposition home or self-care (01) ==
LOC: ERS 10:21
DX: R10.32 Left lower quadrant pain (principal); Z79.899 Other long term (current) drug therapy; E78.5 Hyperlipidemia, unspecified; I11.0 Hypertensive heart disease with heart failure; I50.9 Heart failure, unspecified; E11.9 Type 2 diabetes mellitus without complications
CPT/HCPCS: 74177; 80053; 81003; 81015; 82553; 83690; 83735; 83880; 84484; 85025; 87086; 93005; Q9967

== ENCOUNTER 2022-01-05 10:59 | Inpatient (IN) | payer MEDICARE, BC ==
[2022-01-05 12:03] LABS: Hemoglobin 10.8 g/dL (12.0-16.0); Mean Corpuscular HGB CONC 30.5 g/dL (32.0-36.0); Mean Corpuscular Hemoglobin 29.1 pg (27.0-31.0); Mean Corpuscular Volume 95.3 fL (78.0-98.0); Mean Platelet Volume 6.5 fL (7.4-10.4); Platelet Count 134 thou/uL (130-400); RBC Distribution Width 21.1 % (11.5-14.5); Red Blood Cell (RBC) Count 3.72 mill/uL (4.20-5.40); White Blood Cell (WBC) Count 5.2 thou/uL (4.8-10.8)
[2022-01-05 12:12] LABS: ALT (SGPT) 11 U/L (8-55); AST (SGOT) 27 U/L (5-34); Albumin 3.7 g/dL (3.4-4.8); Alkaline Phosphatase 236 U/L (40-110); Anion Gap 18 mmol/L (10-20); BUN (Urea Nitrogen) 39 mg/dL (9.8-20.1); Bilirubin, Total 1.3 mg/dL (0.2-1.2); Calc. Creatinine Clearance 0 mL/min (70-130); Calcium 10.4 mg/dL (7.8-10.44); Carbon Dioxide 23 mmol/L (23-31); Chloride 105 mmol/L (98-107); Estimated GFR 28; Globulin 3.4 g/dL (2.4-3.5); Glucose 124 mg/dL (83-110); Magnesium 1.9 mg/dL (1.6-2.6); Potassium 4.4 mmol/L (3.5-5.1); Protein, Total 7.1 g/dL (5.8-8.1); Sodium 142 mmol/L (136-145)
[2022-01-05 12:13] LABS: Anisocytosis SLIGHT = 6-15 cells (100X) (0-5/hpf); Band 7 % (5-11); Lymphocytes 30 % (21-51); MDiff Complete? YES; Monocytes 5 % (0-10); Neutrophil 58 % (42-75); Platelet Clumps MARKED; Platelet Morphology Comment Appears Adequate; Polychromasia SLIGHT = 2-3 cells (100X) (0-2/hpf)
[2022-01-05 12:35] LABS: CKMB 2.4 ng/mL (0-6.6)
[2022-01-05] MEDS ORDERED: HumaLOG 300 UNITS/3 ML VIAL SC PRN (14:07)
[2022-01-05] MEDS ORDERED: Dextrose 5% in Water 1,000 ML IV PRN (14:07)
[2022-01-05] MEDS ORDERED: Acetaminophen 325 MG TAB PO PRN (14:07)
[2022-01-05] MEDS ORDERED: Dextrose 50% Abboject 50 ML SYRINGE SLOW IVP PRN (14:07)
[2022-01-05 15:28] VITALS: BMI 25.2
[2022-01-05] MEDS: Heparin 5,000 UNITS/ML VIAL SC SCH ×2 (16:40→20:28)
[2022-01-05 16:45] LABS: Troponin I 0.086 ng/mL (< 0.028)
[2022-01-05] MEDS: HumaLOG 300 UNITS/3 ML VIAL SC PRN (17:17)
[2022-01-05 20:27] LABS: Troponin I 0.084 ng/mL (< 0.028)
[2022-01-05] MEDS ORDERED: Gabapentin 100 MG CAP PO SCH (20:30)
[2022-01-05] MEDS ORDERED: Famotidine 20 MG TAB PO SCH (21:00)
[2022-01-06 04:47] LABS: Anion Gap 17 mmol/L (10-20); BUN (Urea Nitrogen) 39 mg/dL (9.8-20.1); Calc. Creatinine Clearance 30 mL/min (70-130); Calcium 10.5 mg/dL (7.8-10.44); Carbon Dioxide 20 mmol/L (23-31); Chloride 105 mmol/L (98-107); Estimated GFR 31; Glucose 107 mg/dL (83-110); Potassium 4.5 mmol/L (3.5-5.1); Sodium 137 mmol/L (136-145)
[2022-01-06] MEDS: Furosemide 40 MG/4 ML VIAL SLOW IVP SCH ×2 (06:16→13:40)
[2022-01-06 08:25] LABS: #Eosinphils 0.1 thou/uL (0.0-0.7); #Lymphocytes 1.9 thou/uL (1.20-3.40); #Monocytes 0.6 thou/uL (0.11-0.59); #Neutrophils 2.9 thou/uL (1.40-6.50); %Basophils 0.1 % (0.0-1.0); %Eosinophils 2.2 % (0.0-10.0); %Lymphocytes 33.6 % (21.0-51.0); Anisocytosis SLIGHT = 6-15 cells (100X) (0-5/hpf); Hemoglobin 11.1 g/dL (12.0-16.0); MDiff Complete? YES; Mean Corpuscular HGB CONC 31.4 g/dL (32.0-36.0); Mean Corpuscular Hemoglobin 29.4 pg (27.0-31.0); Mean Corpuscular Volume 93.4 fL (78.0-98.0); Mean Platelet Volume 14.2 fL (7.4-10.4); Platelet Clumps MARKED; Platelet Count 128 thou/uL (130-400); RBC Distribution Width 21.3 % (11.5-14.5); Red Blood Cell (RBC) Count 3.77 mill/uL (4.20-5.40); White Blood Cell (WBC) Count 5.5 thou/uL (4.8-10.8)
[2022-01-06] MEDS: Famotidine 20 MG TAB PO SCH (09:58)
[2022-01-06] MEDS: Heparin 5,000 UNITS/ML VIAL SC SCH ×3 (09:58→21:02)
[2022-01-06] MEDS: HumaLOG 300 UNITS/3 ML VIAL SC PRN (10:48)
[2022-01-06] MEDS ORDERED: Metolazone 2.5 MG TAB PO SCH (12:30)
[2022-01-06] MEDS ORDERED: Losartan 25 MG TAB PO SCH (12:30)
[2022-01-06] MEDS ORDERED: Carvedilol 3.125 MG TAB PO SCH (17:00)
[2022-01-07] MEDS: Furosemide 40 MG/4 ML VIAL SLOW IVP SCH (05:17)
[2022-01-07] MEDS ORDERED: Carvedilol 6.25 MG TAB PO SCH (08:00)
[2022-01-07] MEDS ORDERED: Spironolactone 25 MG TAB PO SCH (08:00)
[2022-01-07] MEDS ORDERED: Isosorbide Dinitrate 5 MG TAB PO SCH (09:00)
[2022-01-07] MEDS ORDERED: Losartan 25 MG TAB PO SCH (09:00)
[2022-01-07] MEDS ORDERED: TRULICITY 1.5 MG/0.5 ML SC SCH (09:00)
[2022-01-07] MEDS: Famotidine 20 MG TAB PO SCH (09:18)
[2022-01-07] MEDS: Heparin 5,000 UNITS/ML VIAL SC SCH (09:20)
[2022-01-07 12:42] VITALS: TEMP 97.7
[2022-01-07 13:40] VITALS: BP 144/62
[2022-01-08] MEDS ORDERED: Furosemide 40 MG TAB PO SCH (07:30)
== END 2022-01-07 13:00 | disposition home health service (06) | DRG 291 ==
LOC: ERS 10:59 → 2NO 14:55 → OBSVTOIN 01-07 10:06
PROVIDERS: ADMIT Internal Medicine; ATTEND Internal Medicine
PROC: 8E0ZXY6 Isolation (ICD-10-PCS; principal; 2022-01-07)
DX: I13.0 Hypertensive heart and chronic kidney disease with heart failure and stage 1 through stage 4 chronic kidney disease, or unspecified chronic kidney disease (principal); I50.43 Acute on chronic combined systolic (congestive) and diastolic (congestive) heart failure; U07.1 COVID-19; I48.20 Chronic atrial fibrillation, unspecified; E11.22 Type 2 diabetes mellitus with diabetic chronic kidney disease; N18.30 Chronic kidney disease, stage 3 unspecified; I08.1 Rheumatic disorders of both mitral and tricuspid valves; R07.89 Other chest pain; D53.9 Nutritional anemia, unspecified; D75.839 Thrombocytosis, unspecified; I42.8 Other cardiomyopathies; R77.8 Other specified abnormalities of plasma proteins; Z96.643 Presence of artificial hip joint, bilateral; Z95.818 Presence of other cardiac implants and grafts; Z88.8 Allergy status to other drugs, medicaments and biological substances; Z79.899 Other long term (current) drug therapy; Z80.0 Family history of malignant neoplasm of digestive organs; Z82.49 Family history of ischemic heart disease and other diseases of the circulatory system
CPT/HCPCS: 36415; 36416; 71045; 80048; 80053; 82553; 83735; 83880; 84484; 85025; 93005; 93306; 93798; G0378; J1644; J1815; J1940; U0003; U0005

== ENCOUNTER 2022-01-20 10:15 | Outpatient (CLI) | payer MEDICARE, BC | END 2022-01-20 10:16 | disposition home or self-care (01) | LOC: PET 10:15 | PROVIDERS: ATTEND Internal Medicine | DX: C79.51 Secondary malignant neoplasm of bone (principal); C80.1 Malignant (primary) neoplasm, unspecified; J90 Pleural effusion, not elsewhere classified; R18.8 Other ascites | CPT/HCPCS: 78815; A9552 ==

== ENCOUNTER 2022-01-27 15:42 | Emergency (ER) | payer MEDICARE, BC ==
[2022-01-27 17:08] LABS: Hemoglobin 10.1 g/dL (12.0-16.0); Mean Corpuscular HGB CONC 30.8 g/dL (32.0-36.0); Mean Corpuscular Volume 97.4 fL (78.0-98.0); Platelet Count 123 thou/uL (130-400); RBC Distribution Width 21.2 % (11.5-14.5); Red Blood Cell (RBC) Count 3.39 mill/uL (4.20-5.40); White Blood Cell (WBC) Count 4.2 thou/uL (4.8-10.8)
[2022-01-27 17:09] LABS: #Basophils 0.1 thou/uL (0.0-0.2); #Eosinphils 0.1 thou/uL (0.0-0.7); #Lymphocytes 1.2 thou/uL (1.20-3.40); #Monocytes 0.3 thou/uL (0.11-0.59); #Neutrophils 2.5 thou/uL (1.40-6.50); %Basophils 1.4 % (0.0-1.0); %Eosinophils 3.3 % (0.0-10.0); %Lymphocytes 27.8 % (21.0-51.0); %Monocytes 7.4 % (0.0-10.0); %Neutrophils 60.2 % (42.0-75.0)
[2022-01-27 17:17] LABS: ALT (SGPT) 18 U/L (8-55); AST (SGOT) 32 U/L (5-34); Albumin 3.7 g/dL (3.4-4.8); Alkaline Phosphatase 290 U/L (40-110); Anion Gap 14 mmol/L (10-20); BUN (Urea Nitrogen) 77 mg/dL (9.8-20.1); Bilirubin, Total 1.5 mg/dL (0.2-1.2); Calc. Creatinine Clearance 0 mL/min (70-130); Calcium 9.8 mg/dL (7.8-10.44); Carbon Dioxide 25 mmol/L (23-31); Chloride 105 mmol/L (98-107); Estimated GFR 26; Globulin 3.4 g/dL (2.4-3.5); Glucose 191 mg/dL (83-110); Lipase 182 U/L (8-78); Potassium 4.7 mmol/L (3.5-5.1); Protein, Total 7.1 g/dL (5.8-8.1); Sodium 139 mmol/L (136-145)
[2022-01-27 17:30] LABS: Anisocytosis SLIGHT = 6-15 cells (100X) (0-5/hpf); Large Platelets SLIGHT; MDiff Complete? YES; Ovalocytes SLIGHT = 2-5 cells (100X) (0-1/hpf); Platelet Clumps SLIGHT; Platelet Morphology Comment Appears Decreased; Polychromasia SLIGHT = 2-3 cells (100X) (0-2/hpf); Tear Drops SLIGHT = 2-5 cells (100X) (0-1/hpf)
[2022-01-27 17:39] LABS: CKMB 2.2 ng/mL (0-6.6)
[2022-01-27] MEDS ORDERED: Furosemide 40 MG/4 ML VIAL ONE (18:46)
== END 2022-01-27 19:30 | disposition home or self-care (01) ==
LOC: ERS 15:42
DX: E87.70 Fluid overload, unspecified (principal); I11.0 Hypertensive heart disease with heart failure; I50.9 Heart failure, unspecified; E11.9 Type 2 diabetes mellitus without complications; E78.5 Hyperlipidemia, unspecified; I48.91 Unspecified atrial fibrillation
CPT/HCPCS: 36415; 51701; 71045; 80053; 82553; 83690; 83880; 84484; 85025; 93005; 96374; J1940

== ENCOUNTER 2022-02-21 20:14 | Emergency (ER) | payer MEDICARE, BC ==
[2022-02-21] MEDS ORDERED: Acetaminophen 500 MG TAB ONE (20:48)
[2022-02-21 21:01] LABS: Hemoglobin 10.6 g/dL (12.0-16.0); Mean Corpuscular HGB CONC 30.9 g/dL (32.0-36.0); Mean Corpuscular Hemoglobin 30.2 pg (27.0-31.0); Mean Corpuscular Volume 97.6 fL (78.0-98.0); Red Blood Cell (RBC) Count 3.51 mill/uL (4.20-5.40); White Blood Cell (WBC) Count 5.2 thou/uL (4.8-10.8)
[2022-02-21 21:13] LABS: ALT (SGPT) 16 U/L (8-55); AST (SGOT) 32 U/L (5-34); Albumin 3.9 g/dL (3.4-4.8); Alkaline Phosphatase 260 U/L (40-110); Anion Gap 17 mmol/L (10-20); BUN (Urea Nitrogen) 43 mg/dL (9.8-20.1); Bilirubin, Total 1.3 mg/dL (0.2-1.2); Calc. Creatinine Clearance 0 mL/min (70-130); Calcium 9.6 mg/dL (7.8-10.44); Carbon Dioxide 24 mmol/L (23-31); Chloride 106 mmol/L (98-107); Estimated GFR 24; Glucose 192 mg/dL (83-110); Potassium 3.8 mmol/L (3.5-5.1); Protein, Total 7.9 g/dL (5.8-8.1); Sodium 143 mmol/L (136-145)
[2022-02-21 21:19] LABS: Eosinophils 1 % (0-10); Hypochromia SLIGHT = 6-15 cells (100X) (0-5/hpf); Lymphocytes 19 % (21-51); MDiff Complete? YES; Mean Platelet Volume 9.5 fL (7.4-10.4); Monocytes 18 % (0-10); Neutrophil 59 % (42-75); Platelet Count 50 thou/uL (130-400); Platelet Morphology Comment Appears Decreased; RBC Distribution Width 21.7 % (11.5-14.5); Reactive Lymphocytes 3 % (0-10)
[2022-02-21 21:34] LABS: CKMB 3.2 ng/mL (0-6.6)
[2022-02-21 21:40] LABS: Bilirubin Negative (Negative); Blood, Urine Negative (Negative); Clarity Clear (Clear); Glucose, Urine (Dipstick) Greater than 1000 mg/dL (Negative); Ketone, Urine Negative (Negative); Leukocyte Negative Leu/uL (Negative); Nitrite Negative (Negative); Protein, Urine (Dipstick) Negative (Neg-Trace); Specific Gravity, Urine 1.012 (1.002-1.036); Urobilinogen Normal mg/dL (Less than 2)
== END 2022-02-21 21:46 | disposition home or self-care (01) ==
LOC: ERS 20:14
DX: M54.6 Pain in thoracic spine (principal); E11.9 Type 2 diabetes mellitus without complications; I11.0 Hypertensive heart disease with heart failure; I50.9 Heart failure, unspecified; I48.91 Unspecified atrial fibrillation; E78.5 Hyperlipidemia, unspecified; Z79.899 Other long term (current) drug therapy
CPT/HCPCS: 36415; 71045; 80053; 81003; 82553; 83880; 84484; 85025; 93005

== ENCOUNTER 2022-03-13 14:15 | Outpatient (CLI) | payer MEDICARE, BC | END 2022-03-13 14:16 | disposition home or self-care (01) | LOC: ULT 14:15 | PROVIDERS: ATTEND Internal Medicine Nephrology | DX: N18.6 End stage renal disease (principal); R18.8 Other ascites; K76.89 Other specified diseases of liver; N27.0 Small kidney, unilateral; N28.89 Other specified disorders of kidney and ureter; N18.9 Chronic kidney disease, unspecified; Z90.49 Acquired absence of other specified parts of digestive tract | CPT/HCPCS: 76700 ==

== ENCOUNTER 2022-03-21 03:02 | Emergency (ER) | payer MEDICARE, BC ==
[2022-03-21 04:17] LABS: Hemoglobin 11.6 g/dL (12.0-16.0); Mean Corpuscular HGB CONC 31.1 g/dL (32.0-36.0); Mean Corpuscular Hemoglobin 30.7 pg (27.0-31.0); Mean Corpuscular Volume 98.9 fl (78.0-98.0); Mean Platelet Volume 6.9 fL (7.4-10.4); RBC Distribution Width 21.7 % (11.5-14.5); Red Blood Cell (RBC) Count 3.76 mill/uL (4.20-5.40); White Blood Cell (WBC) Count 5.7 10x3/uL (4.8-10.8)
[2022-03-21 04:21] LABS: INR-International Normal Ratio 1.4; Prothrombin Time 17.7 sec (12.0-14.7)
[2022-03-21 04:22] LABS: PTT 44.1 sec (22.9-36.1)
[2022-03-21 04:26] LABS: Bacteria/HPF None Seen HPF (None Seen); Bilirubin Negative (Negative); Blood, Urine Negative (Negative); Clarity Clear (Clear); Glucose, Urine (Dipstick) Greater than 1000 mg/dL (Negative); Ketone, Urine 10 mg/dL (Negative); Leukocyte 25 Leu/uL (Negative); Nitrite Negative (Negative); Protein, Urine (Dipstick) Negative (Neg-Trace); RBC/HPF 0-3 HPF (0-3); Specific Gravity, Urine 1.023 (1.002-1.036); Squamous Epithelial 0-3 HPF (0-3); Urobilinogen Normal mg/dL (Less than 2); pH, Urine 5.5 (5.0-9.0)
[2022-03-21 04:33] LABS: ALT (SGPT) 12 U/L (8-55); AST (SGOT) 28 U/L (5-34); Albumin 3.8 g/dL (3.4-4.8); Alkaline Phosphatase 220 U/L (40-110); Anion Gap 17 mmol/L (10-20); BUN (Urea Nitrogen) 42 mg/dL (9.8-20.1); CK (CPK) 126 U/L (29-168); CRP (Inflammatory) 2.37 mg/dL (= or < 0.5); Calc. Creatinine Clearance 0 mL/min (70-130); Carbon Dioxide 22 mmol/L (23-31); Chloride 104 mmol/L (98-107); Estimated GFR 25; Globulin 4.1 g/dL (2.4-3.5); Glucose 143 mg/dL (83-110); Potassium 5.2 mmol/L (3.5-5.1); Protein, Total 7.9 g/dL (5.8-8.1); Sodium 138 mmol/L (136-145)
[2022-03-21 04:52] LABS: #Eosinphils 0.1 thou/uL (0.0-0.7); #Lymphocytes 1.2 thou/uL (1.20-3.40); #Monocytes 0.5 thou/uL (0.11-0.59); #Neutrophils 3.9 thou/uL (1.40-6.50); %Basophils 0.1 % (0.0-1.0); %Eosinophils 1.6 % (0.0-10.0); %Lymphocytes 20.8 % (21.0-51.0); %Neutrophils 68.4 % (42.0-75.0); Hypochromia SLIGHT = 6-15 cells (100X) (0-5/hpf); Large Platelets SLIGHT; MDiff Complete? YES; Macrocytosis SLIGHT = 6-15 cells (100X) (0-5/hpf); Ovalocytes SLIGHT = 2-5 cells (100X) (0-1/hpf); Platelet Morphology Comment Appears Decreased; Polychromasia SLIGHT = 2-3 cells (100X) (0-2/hpf); Target Cells SLIGHT = 2-5 cells (100X) (0-1/hpf); Tear Drops SLIGHT = 2-5 cells (100X) (0-1/hpf)
[2022-03-21 04:53] LABS: SARS-CoV-2 NAA Rapid Test Not Detected (NotDetected)
[2022-03-21 04:55] LABS: Platelet Count 153 10x3/uL (130-400)
[2022-03-21 05:46] LABS: CKMB 3.8 ng/mL (0-6.6)
== END 2022-03-21 06:06 | disposition home or self-care (01) ==
LOC: ERS 03:02
DX: R18.8 Other ascites (principal); R06.02 Shortness of breath; E78.5 Hyperlipidemia, unspecified; E11.9 Type 2 diabetes mellitus without complications; I50.9 Heart failure, unspecified; I11.0 Hypertensive heart disease with heart failure; Z20.822 Contact with and (suspected) exposure to COVID-19
CPT/HCPCS: 71045; 74176; 80053; 82140; 82550; 82553; 83605; 83690; 84484; 85025; 85610; 85730; 86140; 87040; 87086; 87149 ×2; 93005; U0002; 36415; 81003; 81015; 87077; 87186

== ENCOUNTER 2022-03-31 07:21 | Day surgery (SDC) | payer MEDICARE, BC ==
[2022-03-31] MEDS ORDERED: Sodium Bicarbonate 2.5 MEQ/5 ML VIAL ONE (08:39)
[2022-03-31] MEDS ORDERED: Lidocaine 2% PF 5 ML VIAL ONE (08:39)
[2022-03-31 09:41] VITALS: BP 121/54
== END 2022-03-31 10:00 | disposition home or self-care (01) ==
LOC: ULT 07:21
PROVIDERS: ATTEND Physician Assistant Medical
PROC: 0W9G3ZZ Drainage of Peritoneal Cavity, Percutaneous Approach (ICD-10-PCS; principal; 2022-03-31)
DX: K74.60 Unspecified cirrhosis of liver (principal); R18.8 Other ascites; N18.4 Chronic kidney disease, stage 4 (severe); I48.91 Unspecified atrial fibrillation; Z79.85 Long-term (current) use of injectable non-insulin antidiabetic drugs; Z79.899 Other long term (current) drug therapy; Z88.8 Allergy status to other drugs, medicaments and biological substances
CPT/HCPCS: 49083; J2001

== ENCOUNTER 2022-04-01 14:18 | Outpatient (CLI) | payer MEDICARE, BC | END 2022-04-01 14:19 | disposition home or self-care (01) | LOC: SCSMRI 14:18 | PROVIDERS: ATTEND Physician Assistant Medical | DX: N18.4 Chronic kidney disease, stage 4 (severe) (principal); I48.91 Unspecified atrial fibrillation; K76.9 Liver disease, unspecified; K74.60 Unspecified cirrhosis of liver; R18.8 Other ascites; J90 Pleural effusion, not elsewhere classified | CPT/HCPCS: 74183; 82565 ==

== ENCOUNTER 2022-05-27 08:35 | Outpatient (CLI) | payer MEDICARE, BC ==
[2022-05-27] MEDS ORDERED: Magnevist 469MG/ML 20 ML VIAL ONE (09:17)
== END 2022-05-27 08:36 | disposition home or self-care (01) ==
LOC: MRI 08:35
PROVIDERS: ATTEND Physician Assistant Medical
DX: N18.4 Chronic kidney disease, stage 4 (severe) (principal); K76.9 Liver disease, unspecified; R18.8 Other ascites; K74.60 Unspecified cirrhosis of liver; I48.91 Unspecified atrial fibrillation
CPT/HCPCS: 74183; A9579

== ENCOUNTER 2022-06-03 08:25 | Day surgery (SDC) | payer MEDICARE, BC ==
[2022-06-03] MEDS ORDERED: Albumin 25% 200 ML ONE (08:43)
[2022-06-03] MEDS ORDERED: Lidocaine 1% PF 5 ML VIAL ONE (08:43)
[2022-06-03] MEDS ORDERED: Sodium Bicarbonate 2.5 MEQ/5 ML VIAL ONE (08:43)
[2022-06-03 08:59] LABS: INR-International Normal Ratio 1.1
[2022-06-03 09:09] LABS: PTT 36.5 sec (22.9-36.1)
[2022-06-03 09:28] LABS: Band 4 % (5-11); Hemoglobin 10.6 g/dL (12.0-16.0); Lymphocytes 17 % (21-51); MDiff Complete? YES; Mean Corpuscular HGB CONC 30.4 g/dL (32.0-36.0); Mean Corpuscular Hemoglobin 29.4 pg (27.0-31.0); Mean Corpuscular Volume 96.6 fl (78.0-98.0); Monocytes 12 % (0-10); Neutrophil 67 % (42-75); Platelet Clumps MARKED; Platelet Morphology Comment PLT clumps seen-ADEQ; Polychromasia SLIGHT = 2-3 cells (100X) (0-2/hpf); RBC Distribution Width 21.6 % (11.5-14.5); Red Blood Cell (RBC) Count 3.61 mill/uL (4.20-5.40); White Blood Cell (WBC) Count 4.9 10x3/uL (4.8-10.8)
[2022-06-03 11:36] VITALS: BP 133/80; TEMP 97.6
== END 2022-06-03 11:15 | disposition home or self-care (01) ==
LOC: ULT 08:25
PROVIDERS: ATTEND Physician Assistant Medical
PROC: 0W9G3ZZ Drainage of Peritoneal Cavity, Percutaneous Approach (ICD-10-PCS; principal; 2022-06-03)
DX: K74.60 Unspecified cirrhosis of liver (principal); R18.8 Other ascites; D64.9 Anemia, unspecified; Z79.84 Long term (current) use of oral hypoglycemic drugs; Z79.85 Long-term (current) use of injectable non-insulin antidiabetic drugs; Z79.899 Other long term (current) drug therapy; Z88.8 Allergy status to other drugs, medicaments and biological substances
CPT/HCPCS: 49083; 85025; 85610; 85730; P9047

== ENCOUNTER 2022-06-14 18:30 | Inpatient (IN) | payer MEDICARE, BC ==
[2022-06-14 19:09] LABS: Actual Bicarbonate (HCO3a) 20.5 mEq/L (22-28); Analyzer IN Cardio ER; Base Excess (BEa) -3.1 mEq/L (-2.0 to +3.0); CO2 Tension 32.4 mmHg (35.0-45.0); Carboxyhemoglobin (COHb) 0.9 gm% (0.0-3.0); Hemoglobin (Hb) 12.7 g/dL (12.0-16.0); O2 Tension (PaO2), arterial 76.3 mmHg (> 60.0); Potassium - ABG Lab 4.52 mmol/L (3.70-5.30); pH, Arterial 7.42 (7.35-7.45)
[2022-06-14] MEDS ORDERED: Furosemide 40 MG/4 ML VIAL ONE (19:21)
[2022-06-14 19:26] LABS: Hemoglobin 12.6 g/dL (12.0-16.0); Mean Corpuscular HGB CONC 30.5 g/dL (32.0-36.0); Mean Corpuscular Hemoglobin 30.3 pg (27.0-31.0); Mean Corpuscular Volume 99.3 fl (78.0-98.0); RBC Distribution Width 22.3 % (11.5-14.5); Red Blood Cell (RBC) Count 4.14 mill/uL (4.20-5.40); White Blood Cell (WBC) Count 17.9 10x3/uL (4.8-10.8)
[2022-06-14 19:34] LABS: Mean Platelet Volume 6.6 fL (7.4-10.4); Platelet Count 160 10x3/uL (130-400)
[2022-06-14 19:38] LABS: ALT (SGPT) 13 U/L (8-55); AST (SGOT) 28 U/L (5-34); Albumin 3.8 g/dL (3.4-4.8); Alkaline Phosphatase 254 U/L (40-110); Anion Gap 19 mmol/L (10-20); BUN (Urea Nitrogen) 31 mg/dL (9.8-20.1); Bilirubin, Total 1.4 mg/dL (0.2-1.2); Calc. Creatinine Clearance 0 mL/min (70-130); Calcium 9.7 mg/dL (7.8-10.44); Carbon Dioxide 17 mmol/L (23-31); Chloride 107 mmol/L (98-107); Estimated GFR 34; Globulin 3.9 g/dL (2.4-3.5); Glucose 243 mg/dL (83-110); Potassium 4.7 mmol/L (3.5-5.1); Protein, Total 7.7 g/dL (5.8-8.1); Sodium 138 mmol/L (136-145)
[2022-06-14 19:40] LABS: Anisocytosis SLIGHT = 6-15 cells (100X) (0-5/hpf); Band 18 % (5-11); Eosinophils 1 % (0-10); Lymphocytes 8 % (21-51); MDiff Complete? YES; Monocytes 3 % (0-10); Neutrophil 70 % (42-75); Nucleated RBC 1 % (0); Platelet Morphology Comment Appears Adequate; Polychromasia SLIGHT = 2-3 cells (100X) (0-2/hpf)
[2022-06-14 20:00] LABS: CKMB 2.7 ng/mL (0-6.6)
[2022-06-14 21:12] LABS: Bilirubin Negative (Negative); Blood, Urine Negative (Negative); Clarity Clear (Clear); Glucose, Urine (Dipstick) 500 mg/dL (Negative); Ketone, Urine Negative (Negative); Leukocyte Negative Leu/uL (Negative); Nitrite Negative (Negative); Protein, Urine (Dipstick) 10 mg/dL (Neg-Trace); Specific Gravity, Urine 1.013 (1.002-1.036); Urobilinogen Normal mg/dL (Less than 2)
[2022-06-14] MEDS ORDERED: Bisacodyl 5 MG TAB PO PRN (22:08)
[2022-06-14] MEDS ORDERED: Ondansetron ODT 4 MG TAB PO PRN (22:08)
[2022-06-14] MEDS ORDERED: Senokot S 8.6-50 MG TAB PO PRN (22:08)
[2022-06-14] MEDS ORDERED: Acetaminophen 325 MG TAB PO PRN (22:08)
[2022-06-14] MEDS ORDERED: Dextrose 50% Abboject 50 ML SYRINGE SLOW IVP PRN (22:12)
[2022-06-14] MEDS ORDERED: Dextrose 5% in Water 1,000 ML IV PRN (22:12)
[2022-06-14 22:39] LABS: SARS-CoV-2 NAA Rapid Test Not Detected (NotDetected)
[2022-06-14 22:48] LABS: Puncture Site LRA
[2022-06-14 23:13] LABS: Lactic Acid 2.6 mmol/L (0.5-2.2)
[2022-06-14] MEDS ORDERED: cefTRIAXone\\ROCEPHIN 1 GM VIAL ONE (23:38)
[2022-06-14] MEDS: cefTRIAXone\\ROCEPHIN 1 GM in Sodium Chloride 0.9% 100 ML IVPB SCH (23:45)
[2022-06-15 01:59] LABS: Troponin I 0.199 ng/mL (< 0.028)
[2022-06-15 03:53] VITALS: BMI 28.7
[2022-06-15] MEDS: Furosemide 40 MG/4 ML VIAL SLOW IVP SCH ×2 (06:45→14:39)
[2022-06-15 07:19] LABS: Anion Gap 14 mmol/L (10-20); BUN (Urea Nitrogen) 34 mg/dL (9.8-20.1); Calc. Creatinine Clearance 31 mL/min (70-130); Carbon Dioxide 21 mmol/L (23-31); Chloride 106 mmol/L (98-107); Estimated GFR 33; Glucose 279 mg/dL (83-110); Potassium 4.4 mmol/L (3.5-5.1); Sodium 137 mmol/L (136-145)
[2022-06-15 07:31] LABS: Troponin I 0.279 ng/mL (< 0.028)
[2022-06-15] MEDS: HumaLOG 300 UNITS/3 ML VIAL SC PRN (07:48)
[2022-06-15 08:08] LABS: Anisocytosis SLIGHT = 6-15 cells (100X) (0-5/hpf); Band 31 % (5-11); Hemoglobin 10.5 g/dL (12.0-16.0); Hypochromia SLIGHT = 6-15 cells (100X) (0-5/hpf); Lymphocytes 3 % (21-51); MDiff Complete? YES; Mean Corpuscular HGB CONC 30.5 g/dL (32.0-36.0); Mean Corpuscular Hemoglobin 29.3 pg (27.0-31.0); Mean Corpuscular Volume 96.3 fl (78.0-98.0); Mean Platelet Volume 7.6 fL (7.4-10.4); Monocytes 7 % (0-10); Neutrophil 59 % (42-75); Platelet Clumps MARKED; Platelet Morphology Comment PLT clumps seen-ADEQ; Polychromasia SLIGHT = 2-3 cells (100X) (0-2/hpf); RBC Distribution Width 21.9 % (11.5-14.5); Red Blood Cell (RBC) Count 3.58 mill/uL (4.20-5.40)
[2022-06-15] MEDS: Carvedilol 6.25 MG TAB PO SCH ×2 (09:07→18:00)
[2022-06-15] MEDS: Doxycycline 100 MG CAP PO SCH ×2 (09:09→21:20)
[2022-06-15] MEDS: Aspirin Chewable 81 MG TAB PO SCH (09:09)
[2022-06-15] MEDS: Isosorbide Dinitrate 5 MG TAB PO SCH ×2 (09:10→21:21)
[2022-06-15] MEDS: Famotidine 20 MG TAB PO SCH (09:10)
[2022-06-15] MEDS: Losartan 25 MG TAB PO SCH (09:11)
[2022-06-15] MEDS: Empagliflozin 10 MG TAB PO SCH (09:11)
[2022-06-15] MEDS: Heparin 5,000 UNITS/ML VIAL SC SCH ×3 (09:13→21:21)
[2022-06-15] MEDS ORDERED: Gabapentin 100 MG CAP PO SCH ×2 (21:00→23:15)
[2022-06-15] MEDS: cefTRIAXone\\ROCEPHIN 1 GM in Sodium Chloride 0.9% 100 ML IVPB SCH (23:40)
[2022-06-16 04:20] LABS: Anion Gap 10 mmol/L (10-20); BUN (Urea Nitrogen) 34 mg/dL (9.8-20.1); Calc. Creatinine Clearance 32 mL/min (70-130); Calcium 8.5 mg/dL (7.8-10.44); Carbon Dioxide 24 mmol/L (23-31); Chloride 106 mmol/L (98-107); Estimated GFR 34; Glucose 106 mg/dL (83-110); Potassium 4.3 mmol/L (3.5-5.1); Sodium 136 mmol/L (136-145)
[2022-06-16] MEDS: Furosemide 40 MG/4 ML VIAL SLOW IVP SCH ×2 (06:02→16:03)
[2022-06-16 06:21] LABS: #Eosinphils 0.2 thou/uL (0.0-0.7); #Lymphocytes 1.5 thou/uL (1.20-3.40); #Monocytes 0.7 thou/uL (0.11-0.59); #Neutrophils 10.4 thou/uL (1.40-6.50); %Basophils 0.2 % (0.0-1.0); %Eosinophils 1.5 % (0.0-10.0); %Lymphocytes 11.9 % (21.0-51.0); %Monocytes 5.3 % (0.0-10.0); %Neutrophils 81.2 % (42.0-75.0); Hemoglobin 9.9 g/dL (12.0-16.0); Mean Corpuscular HGB CONC 31.1 g/dL (32.0-36.0); Mean Corpuscular Hemoglobin 30.2 pg (27.0-31.0); Mean Platelet Volume 7.5 fL (7.4-10.4); Platelet Count 29 10x3/uL (130-400); RBC Distribution Width 21.8 % (11.5-14.5); Red Blood Cell (RBC) Count 3.28 mill/uL (4.20-5.40); White Blood Cell (WBC) Count 12.8 10x3/uL (4.8-10.8)
[2022-06-16] MEDS: Aspirin Chewable 81 MG TAB PO SCH (08:11)
[2022-06-16] MEDS: Doxycycline 100 MG CAP PO SCH (08:11)
[2022-06-16] MEDS: Empagliflozin 10 MG TAB PO SCH (08:11)
[2022-06-16] MEDS: Famotidine 20 MG TAB PO SCH (08:11)
[2022-06-16] MEDS: Carvedilol 6.25 MG TAB PO SCH ×2 (08:12→17:11)
[2022-06-16] MEDS: Losartan 25 MG TAB PO SCH (08:14)
[2022-06-16] MEDS: Isosorbide Dinitrate 5 MG TAB PO SCH ×2 (08:15→20:40)
[2022-06-16] MEDS: Heparin 5,000 UNITS/ML VIAL SC SCH (13:28)
[2022-06-16] MEDS ORDERED: Ipratropium/Albuterol 3 ML NEB NEB PRN (17:46)
[2022-06-16] MEDS ORDERED: GUAIFENESIN SF SOLN 200 MG/10 ML UDCUP PO PRN (17:46)
[2022-06-16] MEDS: Gabapentin 300 MG CAP PO SCH (20:40)
[2022-06-16] MEDS: Benzonatate 100 MG CAP PO SCH (20:41)
[2022-06-16] MEDS: Cefuroxime 250 MG TAB PO SCH (21:29)
[2022-06-17] MEDS: Furosemide 40 MG/4 ML VIAL SLOW IVP SCH ×2 (06:10→13:55)
[2022-06-17 08:02] LABS: Anion Gap 11 mmol/L (10-20); BUN (Urea Nitrogen) 40 mg/dL (9.8-20.1); Calc. Creatinine Clearance 32 mL/min (70-130); Calcium 8.9 mg/dL (7.8-10.44); Carbon Dioxide 24 mmol/L (23-31); Chloride 105 mmol/L (98-107); Estimated GFR 34; Glucose 114 mg/dL (83-110); Potassium 4.2 mmol/L (3.5-5.1); Sodium 136 mmol/L (136-145)
[2022-06-17 08:51] LABS: Band 8 % (5-11); Eosinophils 6 % (0-10); Hemoglobin 10.4 g/dL (12.0-16.0); Large Platelets SLIGHT; Lymphocytes 16 % (21-51); MDiff Complete? YES; Mean Corpuscular Hemoglobin 29.8 pg (27.0-31.0); Mean Platelet Volume 9.1 fL (7.4-10.4); Monocytes 4 % (0-10); Neutrophil 65 % (42-75); Platelet Clumps MARKED; Platelet Morphology Comment PLT clumps seen-ADEQ; Polychromasia SLIGHT = 2-3 cells (100X) (0-2/hpf); RBC Distribution Width 21.7 % (11.5-14.5); Reactive Lymphocytes 1 % (0-10); Red Blood Cell (RBC) Count 3.49 mill/uL (4.20-5.40); White Blood Cell (WBC) Count 7.3 10x3/uL (4.8-10.8)
[2022-06-17] MEDS: Aspirin Chewable 81 MG TAB PO SCH (08:57)
[2022-06-17] MEDS: Cefuroxime 250 MG TAB PO SCH ×2 (08:57→21:03)
[2022-06-17] MEDS: Empagliflozin 10 MG TAB PO SCH (08:58)
[2022-06-17] MEDS: Losartan 25 MG TAB PO SCH (08:58)
[2022-06-17] MEDS: Benzonatate 100 MG CAP PO SCH ×3 (08:58→21:03)
[2022-06-17] MEDS: Famotidine 20 MG TAB PO SCH (08:58)
[2022-06-17] MEDS: Isosorbide Dinitrate 5 MG TAB PO SCH ×2 (08:58→21:03)
[2022-06-17] MEDS: Spironolactone 25 MG TAB PO SCH (08:59)
[2022-06-17] MEDS ORDERED: Losartan 25 MG TAB PO SCH (09:00)
[2022-06-17] MEDS ORDERED: Dulaglutide [Trulicity] 1.5 MG/0.5 ML Pen.Injctr SC SCH (09:00)
[2022-06-17] MEDS: Gabapentin 300 MG CAP PO SCH (21:03)
[2022-06-18] MEDS: Furosemide 40 MG/4 ML VIAL SLOW IVP SCH ×2 (06:10→15:41)
[2022-06-18] MEDS: Benzonatate 100 MG CAP PO SCH ×3 (09:00→20:50)
[2022-06-18] MEDS: Cefuroxime 250 MG TAB PO SCH ×2 (09:00→20:50)
[2022-06-18] MEDS: Famotidine 20 MG TAB PO SCH (09:00)
[2022-06-18] MEDS: Empagliflozin 10 MG TAB PO SCH (09:00)
[2022-06-18] MEDS: Aspirin Chewable 81 MG TAB PO SCH (09:00)
[2022-06-18] MEDS: Isosorbide Dinitrate 5 MG TAB PO SCH (11:38)
[2022-06-18] MEDS: Losartan 25 MG TAB PO SCH (11:38)
[2022-06-18] MEDS: Spironolactone 25 MG TAB PO SCH (11:39)
[2022-06-18 18:15] VITALS: BP 127/91
[2022-06-18] MEDS: HumaLOG 300 UNITS/3 ML VIAL SC PRN (20:50)
[2022-06-18] MEDS: Gabapentin 300 MG CAP PO SCH (20:50)
[2022-06-19] MEDS: Furosemide 40 MG/4 ML VIAL SLOW IVP SCH (05:51)
[2022-06-19 07:30] VITALS: TEMP 97.3
[2022-06-19] MEDS: Aspirin Chewable 81 MG TAB PO SCH (08:16)
[2022-06-19] MEDS: Famotidine 20 MG TAB PO SCH (08:16)
[2022-06-19] MEDS: Empagliflozin 10 MG TAB PO SCH (08:17)
[2022-06-19] MEDS: Spironolactone 25 MG TAB PO SCH (08:17)
[2022-06-19] MEDS: Benzonatate 100 MG CAP PO SCH (08:17)
[2022-06-19] MEDS: Cefuroxime 250 MG TAB PO SCH (08:18)
[2022-06-19 10:38] LABS: Anion Gap 10 mmol/L (10-20); BUN (Urea Nitrogen) 35 mg/dL (9.8-20.1); Calc. Creatinine Clearance 34 mL/min (70-130); Calcium 9.1 mg/dL (7.8-10.44); Carbon Dioxide 28 mmol/L (23-31); Chloride 104 mmol/L (98-107); Estimated GFR 37; Glucose 167 mg/dL (83-110); Potassium 4.2 mmol/L (3.5-5.1); Sodium 138 mmol/L (136-145)
[2022-06-20] MEDS ORDERED: Furosemide 40 MG TAB PO SCH (09:00)
== END 2022-06-19 14:14 | disposition home or self-care (01) | DRG 871 ==
LOC: ERS 18:30 → ERHOLD 20:20 → IMCU/EMU 06-15 01:56
PROVIDERS: ADMIT Internal Medicine; ATTEND Internal Medicine
PROC: 5A09357 Assistance with Respiratory Ventilation, Less than 24 Consecutive Hours, Continuous Positive Airway Pressure (ICD-10-PCS; principal; 2022-06-14)
PROC: 3E03329 Introduction of Other Anti-infective into Peripheral Vein, Percutaneous Approach (ICD-10-PCS; 2022-06-14)
PROC: 4A133R1 Monitoring of Arterial Saturation, Peripheral, Percutaneous Approach (ICD-10-PCS; 2022-06-14)
DX: A40.3 Sepsis due to Streptococcus pneumoniae (principal); I50.43 Acute on chronic combined systolic (congestive) and diastolic (congestive) heart failure; Z66 Do not resuscitate; Z20.822 Contact with and (suspected) exposure to COVID-19; J13 Pneumonia due to Streptococcus pneumoniae; J96.01 Acute respiratory failure with hypoxia; E87.20 Acidosis, unspecified; N18.30 Chronic kidney disease, stage 3 unspecified; I48.91 Unspecified atrial fibrillation; E11.22 Type 2 diabetes mellitus with diabetic chronic kidney disease; Z96.643 Presence of artificial hip joint, bilateral; I34.0 Nonrheumatic mitral (valve) insufficiency; Z88.8 Allergy status to other drugs, medicaments and biological substances; Z79.899 Other long term (current) drug therapy; Z95.818 Presence of other cardiac implants and grafts; Z82.49 Family history of ischemic heart disease and other diseases of the circulatory system
CPT/HCPCS: 36415; 36416; 36600; 71045; 80048; 80053; 81003; 82553; 82805; 83605; 83880; 84484; 85025; 87040; 87077; 87149; 87186; 93005; 94660; 96374; 96375; J0696; J1644; J1815; J1940; J3490

== ENCOUNTER 2022-07-03 08:09 | Day surgery (SDC) | payer MEDICARE, BC ==
[2022-07-03] MEDS ORDERED: Lidocaine 1% PF 5 ML VIAL ONE (08:21)
[2022-07-03] MEDS ORDERED: Albumin 25% 200 ML ONE (08:21)
[2022-07-03] MEDS ORDERED: Sodium Bicarbonate 2.5 MEQ/5 ML VIAL ONE (08:21)
[2022-07-03 11:44] VITALS: BP 122/63
== END 2022-07-03 10:30 | disposition home or self-care (01) ==
LOC: ULT 08:09
PROVIDERS: ATTEND Physician Assistant Medical
PROC: 0W9G3ZZ Drainage of Peritoneal Cavity, Percutaneous Approach (ICD-10-PCS; principal; 2022-07-03)
DX: R18.8 Other ascites (principal); Z88.8 Allergy status to other drugs, medicaments and biological substances
CPT/HCPCS: 49083; P9047

== ENCOUNTER 2022-08-12 16:09 | Inpatient (IN) | payer MEDICARE, BC ==
[2022-08-12 17:09] LABS: Hemoglobin 11.6 g/dL (12.0-16.0); Mean Corpuscular HGB CONC 30.9 g/dL (32.0-36.0); Mean Corpuscular Hemoglobin 29.7 pg (27.0-31.0); Mean Corpuscular Volume 96.1 fl (78.0-98.0); RBC Distribution Width 21.9 % (11.5-14.5); Red Blood Cell (RBC) Count 3.91 mill/uL (4.20-5.40)
[2022-08-12 17:10] LABS: INR-International Normal Ratio 1.1; Prothrombin Time 14.8 sec (12.0-14.7)
[2022-08-12 17:12] LABS: PTT 33.7 sec (22.9-36.1)
[2022-08-12 17:23] LABS: Anisocytosis SLIGHT = 6-15 cells (100X) (0-5/hpf); Band 5 % (5-11); Eosinophils 4 % (0-10); Lymphocytes 19 % (21-51); MDiff Complete? YES; Monocytes 11 % (0-10); Neutrophil 59 % (42-75); Platelet Clumps MODERATE; Platelet Morphology Comment PLT clumps seen-ADEQ; Polychromasia SLIGHT = 2-3 cells (100X) (0-2/hpf); White Blood Cell (WBC) Count 4.8 10x3/uL (4.8-10.8)
[2022-08-12 18:29] LABS: ALT (SGPT) 16 U/L (8-55); AST (SGOT) 40 U/L (5-34); Albumin 3.3 g/dL (3.4-4.8); Alkaline Phosphatase 253 U/L (40-110); Anion Gap 15 mmol/L (10-20); BUN (Urea Nitrogen) 44 mg/dL (9.8-20.1); Bilirubin, Total 0.8 mg/dL (0.2-1.2); Calc. Creatinine Clearance 0 mL/min (70-130); Calcium 9.1 mg/dL (7.8-10.44); Carbon Dioxide 21 mmol/L (23-31); Chloride 108 mmol/L (98-107); Estimated GFR 21; Globulin 4.2 g/dL (2.4-3.5); Glucose 121 mg/dL (83-110); Lipase 158 U/L (8-78); Potassium 5.9 mmol/L (3.5-5.1); Protein, Total 7.5 g/dL (5.8-8.1); Sodium 138 mmol/L (136-145)
[2022-08-12] MEDS ORDERED: Insulin Regular 300 UNITS/3 ML VIAL ONE (18:55)
[2022-08-12] MEDS ORDERED: Dextrose 50% Abboject 50 ML SYRINGE ONE (18:55)
[2022-08-12] MEDS ORDERED: Albuterol 2.5 MG/0.5 ML NEB ONE (19:17)
[2022-08-12] MEDS ORDERED: Ondansetron PF 4 MG/2 ML Vial IVP PRN (19:33)
[2022-08-12] MEDS ORDERED: Dextrose 5% in Water 1,000 ML IV PRN (19:42)
[2022-08-12] MEDS ORDERED: HumaLOG 300 UNITS/3 ML VIAL SC PRN (19:42)
[2022-08-12] MEDS ORDERED: Dextrose 50% Abboject 50 ML SYRINGE SLOW IVP PRN (19:42)
[2022-08-12] MEDS ORDERED: Acetaminophen 500 MG TAB PO PRN (19:50)
[2022-08-12] MEDS ORDERED: Albumin 25% 25 GM/100 ML BOT IVPB SCH (21:15)
[2022-08-12] MEDS ORDERED: Sodium Bicarbonate Tab 325 MG TAB PO SCH (21:30)
[2022-08-12] MEDS: cefTRIAXone\\ROCEPHIN 1 GM in Sodium Chloride 0.9% 100 ML IVPB SCH (23:22)
[2022-08-12 23:33] LABS: Anion Gap 17 mmol/L (10-20); BUN (Urea Nitrogen) 40 mg/dL (9.8-20.1); Calc. Creatinine Clearance 0 mL/min (70-130); Calcium 9.3 mg/dL (7.8-10.44); Carbon Dioxide 19 mmol/L (23-31); Chloride 108 mmol/L (98-107); Estimated GFR 23; Glucose 174 mg/dL (83-110); Potassium 3.6 mmol/L (3.5-5.1); Sodium 140 mmol/L (136-145)
[2022-08-13 04:25] LABS: ALT (SGPT) 14 U/L (8-55); AST (SGOT) 23 U/L (5-34); Albumin 3.6 g/dL (3.4-4.8); Alkaline Phosphatase 229 U/L (40-110); Anion Gap 15 mmol/L (10-20); BUN (Urea Nitrogen) 40 mg/dL (9.8-20.1); Bilirubin, Total 0.8 mg/dL (0.2-1.2); Calc. Creatinine Clearance 0 mL/min (70-130); Carbon Dioxide 21 mmol/L (23-31); Chloride 108 mmol/L (98-107); Estimated GFR 24; Globulin 3.5 g/dL (2.4-3.5); Glucose 195 mg/dL (83-110); Lipase 158 U/L (8-78); Potassium 3.9 mmol/L (3.5-5.1); Protein, Total 7.1 g/dL (5.8-8.1); Sodium 140 mmol/L (136-145)
[2022-08-13 04:26] LABS: Band 9 % (5-11); Eosinophils 1 % (0-10); Hemoglobin 9.7 g/dL (12.0-16.0); Hypochromia SLIGHT = 6-15 cells (100X) (0-5/hpf); Lymphocytes 12 % (21-51); MDiff Complete? YES; Mean Corpuscular HGB CONC 30.9 g/dL (32.0-36.0); Mean Corpuscular Hemoglobin 29.7 pg (27.0-31.0); Mean Corpuscular Volume 96.3 fl (78.0-98.0); Mean Platelet Volume 8.6 fL (7.4-10.4); Monocytes 1 % (0-10); Neutrophil 75 % (42-75); Platelet Morphology Comment PLT clumps seen-ADEQ; RBC Distribution Width 21.9 % (11.5-14.5); Reactive Lymphocytes 2 % (0-10); Red Blood Cell (RBC) Count 3.28 mill/uL (4.20-5.40); Target Cells SLIGHT = 2-5 cells (100X) (0-1/hpf); White Blood Cell (WBC) Count 5.4 10x3/uL (4.8-10.8)
[2022-08-13 04:33] LABS: Bacteria/HPF None Seen HPF (None Seen); Bilirubin Negative (Negative); Blood, Urine Negative (Negative); Clarity Clear (Clear); Glucose, Urine (Dipstick) Greater than 1000 mg/dL (Negative); Ketone, Urine Negative (Negative); Leukocyte 75 Leu/uL (Negative); Nitrite Negative (Negative); Protein, Urine (Dipstick) 10 mg/dL (Neg-Trace); RBC/HPF 0-3 HPF (0-3); Specific Gravity, Urine 1.026 (1.002-1.036); Squamous Epithelial 0-3 HPF (0-3); Urobilinogen Normal mg/dL (Less than 2); WBC/HPF 0-3 HPF (0-3); pH, Urine 5.5 (5.0-9.0)
[2022-08-13 04:48] LABS: Creatinine, Urine 115.42 mg/dL (47-110)
[2022-08-13 04:57] VITALS: BMI 31.3
[2022-08-13] MEDS: HumaLOG 300 UNITS/3 ML VIAL SC PRN ×2 (06:30→12:51)
[2022-08-13] MEDS ORDERED: Sodium Bicarbonate 2.5 MEQ/5 ML VIAL ONE (08:33)
[2022-08-13] MEDS ORDERED: Lidocaine 1% PF 5 ML VIAL ONE (08:33)
[2022-08-13] MEDS ORDERED: Albumin 25% 100 ML ONE (10:03)
[2022-08-13 14:19] LABS: RBC Count-Automated (BF) 4926 /cu.mm; WBC/Nucleated-Auto (BF) 100 /cu.mm
[2022-08-13 14:48] LABS: BF Color Red; Body Fluid Source Ascites Body Fluid; Clarity Hazy (Clear); Tube # EDTA
[2022-08-13 14:50] LABS: BF Segmented Neutrophils 10 %; Cell Count Non Hematic 57 %; Lymphocytes 32 %
[2022-08-13] MEDS ORDERED: Gabapentin 300 MG CAP PO SCH (21:00)
[2022-08-13] MEDS: cefTRIAXone\\ROCEPHIN 1 GM in Sodium Chloride 0.9% 100 ML IVPB SCH (21:27)
[2022-08-14 04:36] LABS: ALT (SGPT) 8 U/L (8-55); AST (SGOT) 23 U/L (5-34); Albumin 3.2 g/dL (3.4-4.8); Alkaline Phosphatase 194 U/L (40-110); Anion Gap 9 mmol/L (10-20); BUN (Urea Nitrogen) 34 mg/dL (9.8-20.1); Bilirubin, Total 0.7 mg/dL (0.2-1.2); Calc. Creatinine Clearance 35 mL/min (70-130); Calcium 8.6 mg/dL (7.8-10.44); Carbon Dioxide 24 mmol/L (23-31); Chloride 109 mmol/L (98-107); Estimated GFR 35; Globulin 2.8 g/dL (2.4-3.5); Glucose 119 mg/dL (83-110); Sodium 138 mmol/L (136-145)
[2022-08-14 07:06] LABS: Hemoglobin 9.5 g/dL (12.0-16.0); Mean Corpuscular HGB CONC 30.3 g/dL (32.0-36.0); Mean Corpuscular Hemoglobin 29.3 pg (27.0-31.0); Mean Corpuscular Volume 96.8 fl (78.0-98.0); Red Blood Cell (RBC) Count 3.24 mill/uL (4.20-5.40); White Blood Cell (WBC) Count 4.7 10x3/uL (4.8-10.8)
[2022-08-14 07:07] LABS: Anisocytosis MODERATE=16-30 cells (100X) (0-5/hpf); Band 1 % (5-11); Eosinophils 5 % (0-10); Hypochromia SLIGHT = 6-15 cells (100X) (0-5/hpf); Large Platelets SLIGHT; Lymphocytes 23 % (21-51); Monocytes 8 % (0-10); Neutrophil 63 % (42-75); Platelet Clumps MARKED; Polychromasia SLIGHT = 2-3 cells (100X) (0-2/hpf); Schistocytes SLIGHT = 2-5 cells (100X) (0-1/hpf)
[2022-08-14 09:27] LABS: MDiff Complete? YES; Mean Platelet Volume 6.6 fL (7.4-10.4); Platelet Morphology Comment PLT clumps seen-ADEQ
[2022-08-14 10:24] LABS: Platelet Count 128 10x3/uL (130-400)
[2022-08-14 15:52] VITALS: BP 133/63; TEMP 97.6
== END 2022-08-14 17:44 | disposition home or self-care (01) | DRG 433 ==
LOC: ERS 16:09 → 2NO 19:23
PROVIDERS: ADMIT Internal Medicine; ATTEND Family Medicine
PROC: 0W9G3ZZ Drainage of Peritoneal Cavity, Percutaneous Approach (ICD-10-PCS; principal; 2022-08-12)
DX: K74.60 Unspecified cirrhosis of liver (principal); E87.20 Acidosis, unspecified; I13.0 Hypertensive heart and chronic kidney disease with heart failure and stage 1 through stage 4 chronic kidney disease, or unspecified chronic kidney disease; N17.9 Acute kidney failure, unspecified; R18.8 Other ascites; I50.42 Chronic combined systolic (congestive) and diastolic (congestive) heart failure; Z96.643 Presence of artificial hip joint, bilateral; E78.5 Hyperlipidemia, unspecified; I48.91 Unspecified atrial fibrillation; I50.9 Heart failure, unspecified; E87.5 Hyperkalemia; E11.22 Type 2 diabetes mellitus with diabetic chronic kidney disease; N18.30 Chronic kidney disease, stage 3 unspecified; D63.1 Anemia in chronic kidney disease
CPT/HCPCS: 36415; 36416; 49083; 71045; 74176; 80053; 81001; 82105; 82570; 83605; 83690; 83880; 84156; 84300; 84540; 85025; 85060; 85610; 85730; 87070; 87205; 89051; 93005; 94644; 94760; 96374; 96375; G0306; J0696; J1815; J3490; J7611; J7999; P9047

== ENCOUNTER 2022-08-31 08:26 | Day surgery (SDC) | payer MEDICARE, BC ==
[2022-08-31] MEDS ORDERED: Lidocaine 1% PF 5 ML VIAL ONE (08:55)
[2022-08-31] MEDS ORDERED: Sodium Bicarbonate 2.5 MEQ/5 ML VIAL ONE (08:55)
[2022-08-31] MEDS ORDERED: Albumin 25% 100 ML ONE (09:46)
[2022-08-31] MEDS ORDERED: Albumin 25% 25 GM/100 ML BOT IVPB SCH (10:00)
[2022-08-31 11:09] VITALS: BP 126/49
== END 2022-08-31 10:45 | disposition home or self-care (01) ==
LOC: ULT 08:26
PROVIDERS: ATTEND Physician Assistant Medical
PROC: 0W9G3ZZ Drainage of Peritoneal Cavity, Percutaneous Approach (ICD-10-PCS; principal; 2022-08-31)
DX: K74.60 Unspecified cirrhosis of liver (principal); R18.8 Other ascites; D64.9 Anemia, unspecified; Z88.8 Allergy status to other drugs, medicaments and biological substances
CPT/HCPCS: 49083; P9047

== ENCOUNTER → 2022-09-15 | Day surgery (SDC) | payer MEDICARE, BC ==
[~2022-09-15] MED LIST: Albumin 25% 100 ML ONE; Lidocaine 1% PF 5 ML VIAL ONE; Sodium Bicarbonate 2.5 MEQ/5 ML VIAL ONE
[2022-09-15 13:42] LABS: #Eosinphils 0.2 thou/uL (0.0-0.7); #Monocytes 0.6 thou/uL (0.11-0.59); #Neutrophils 3.3 thou/uL (1.40-6.50); %Basophils 0.6 % (0.0-1.0); %Eosinophils 3.4 % (0.0-10.0); %Monocytes 10.5 % (0.0-10.0); %Neutrophils 63.1 % (42.0-75.0); Hemoglobin 9.1 g/dL (12.0-16.0); Mean Corpuscular HGB CONC 29.1 g/dL (32.0-36.0); Mean Corpuscular Hemoglobin 27.7 pg (27.0-31.0); Mean Corpuscular Volume 95.4 fl (78.0-98.0); RBC Distribution Width 21.9 % (11.5-14.5); Red Blood Cell (RBC) Count 3.28 mill/uL (4.20-5.40); White Blood Cell (WBC) Count 5.2 10x3/uL (4.8-10.8)
[2022-09-15 13:54] LABS: INR-International Normal Ratio 1.2; PTT 33.3 sec (22.9-36.1); Prothrombin Time 15.2 sec (12.0-14.7)
[2022-09-15 13:55] LABS: Platelet Count 132 10x3/uL (130-400)
== END | disposition home or self-care (01) ==
LOC: ULT 13:31
PROVIDERS: ATTEND Physician Assistant Medical
PROC: 0W9G3ZZ Drainage of Peritoneal Cavity, Percutaneous Approach (ICD-10-PCS; principal; 2022-09-15)
DX: K74.60 Unspecified cirrhosis of liver (principal); R18.8 Other ascites; I48.91 Unspecified atrial fibrillation; D64.9 Anemia, unspecified; Z88.8 Allergy status to other drugs, medicaments and biological substances
CPT/HCPCS: 49083; 85025; 85610; 85730; P9047; 36415

== ENCOUNTER 2022-10-22 14:05 | Inpatient (IN) | payer MEDICARE, BC ==
[2022-10-22 15:34] LABS: #Eosinphils 0.2 thou/uL (0.0-0.7); #Monocytes 0.5 thou/uL (0.11-0.59); #Neutrophils 4.1 thou/uL (1.40-6.50); %Basophils 0.7 % (0.0-1.0); %Eosinophils 2.9 % (0.0-10.0); %Monocytes 9.1 % (0.0-10.0); Hemoglobin 9.3 g/dL (12.0-16.0); Mean Corpuscular HGB CONC 30.5 g/dL (32.0-36.0); Mean Corpuscular Hemoglobin 27.6 pg (27.0-31.0); Mean Corpuscular Volume 90.5 fl (78.0-98.0); RBC Distribution Width 21.6 % (11.5-14.5); Red Blood Cell (RBC) Count 3.37 mill/uL (4.20-5.40)
[2022-10-22 15:35] LABS: Platelet Count 159 10x3/uL (130-400)
[2022-10-22 15:57] LABS: ALT (SGPT) 11 U/L (8-55); AST (SGOT) 26 U/L (5-34); Albumin 3.2 g/dL (3.4-4.8); Alkaline Phosphatase 265 U/L (40-110); Anion Gap 14 mmol/L (10-20); BUN (Urea Nitrogen) 53 mg/dL (9.8-20.1); Bilirubin, Total 0.8 mg/dL (0.2-1.2); Calc. Creatinine Clearance 0 mL/min (70-130); Calcium 9.4 mg/dL (7.8-10.44); Carbon Dioxide 26 mmol/L (23-31); Chloride 102 mmol/L (98-107); Estimated GFR 20; Globulin 4.1 g/dL (2.4-3.5); Glucose 303 mg/dL (83-110); Potassium 4.9 mmol/L (3.5-5.1); Protein, Total 7.3 g/dL (5.8-8.1); Sodium 137 mmol/L (136-145)
[2022-10-22 16:21] LABS: CKMB 2.8 ng/mL (0-6.6)
[2022-10-22] MEDS ORDERED: Ondansetron ODT 4 MG TAB PO PRN (18:16)
[2022-10-22] MEDS ORDERED: Glucagon 1 MG/ML KIT IM PRN (18:19)
[2022-10-22] MEDS ORDERED: Dextrose 5% in Water 1,000 ML IV PRN (18:19)
[2022-10-22] MEDS ORDERED: Dextrose 50% Abboject 50 ML SYRINGE SLOW IVP PRN (18:19)
[2022-10-22] MEDS ORDERED: Furosemide 40 MG/4 ML VIAL ONE (18:36)
[2022-10-22] MEDS ORDERED: Metolazone 2.5 MG TAB PO SCH (18:45)
[2022-10-22] MEDS: Heparin 5,000 UNITS/ML VIAL SC SCH (21:20)
[2022-10-22] MEDS: Gabapentin 300 MG CAP PO SCH (21:20)
[2022-10-22] MEDS: HumaLOG 300 UNITS/3 ML VIAL SC PRN (22:28)
[2022-10-22] MEDS ORDERED: tiZANidine HCl 4 MG TAB PO SCH (23:45)
[2022-10-23 02:13] VITALS: BMI 32.8
[2022-10-23] MEDS: Acetaminophen 500 MG TAB PO PRN ×3 (02:16→20:37)
[2022-10-23 04:17] LABS: #Eosinphils 0.2 thou/uL (0.0-0.7); #Monocytes 0.7 thou/uL (0.11-0.59); #Neutrophils 3.8 thou/uL (1.40-6.50); %Basophils 0.7 % (0.0-1.0); %Eosinophils 2.5 % (0.0-10.0); %Lymphocytes 20.9 % (21.0-51.0); %Monocytes 11.8 % (0.0-10.0); %Neutrophils 63.6 % (42.0-75.0); Hemoglobin 7.7 g/dL (12.0-16.0); Mean Corpuscular HGB CONC 30.4 g/dL (32.0-36.0); RBC Distribution Width 21.3 % (11.5-14.5); Red Blood Cell (RBC) Count 2.75 mill/uL (4.20-5.40)
[2022-10-23 05:04] LABS: Anisocytosis MODERATE=16-30 cells HPF (0-5); CellaVision Operator ID lab.abc; Hypochromia SLIGHT = 6-15 cells HPF (0-5); Large Platelets 2.9 % (0-5); Platelet Clumps 5.8 % (0-5); Polychromasia SLIGHT = 2-3 cells HPF (0-2); Smudge Cells 5.8 %
[2022-10-23] MEDS: Furosemide 40 MG/4 ML VIAL SLOW IVP SCH ×2 (05:53→14:55)
[2022-10-23] MEDS: HumaLOG 300 UNITS/3 ML VIAL SC PRN ×2 (05:58→20:37)
[2022-10-23 06:23] LABS: ALT (SGPT) 9 U/L (8-55); AST (SGOT) 21 U/L (5-34); Albumin 2.6 g/dL (3.4-4.8); Alkaline Phosphatase 217 U/L (40-110); Anion Gap 14 mmol/L (10-20); BUN (Urea Nitrogen) 58 mg/dL (9.8-20.1); Bilirubin, Total 0.5 mg/dL (0.2-1.2); Calc. Creatinine Clearance 23 mL/min (70-130); Calcium 8.8 mg/dL (7.8-10.44); Carbon Dioxide 24 mmol/L (23-31); Chloride 103 mmol/L (98-107); Estimated GFR 20; Globulin 3.3 g/dL (2.4-3.5); Glucose 238 mg/dL (83-110); Potassium 4.8 mmol/L (3.5-5.1); Protein, Total 5.9 g/dL (5.8-8.1); Sodium 136 mmol/L (136-145)
[2022-10-23] MEDS ORDERED: hydrOXYzine 25 MG TAB PO PRN (07:44)
[2022-10-23] MEDS ORDERED: Metolazone 2.5 MG TAB PO SCH ×2 (08:30→13:45)
[2022-10-23] MEDS: Spironolactone 25 MG TAB PO SCH (09:26)
[2022-10-23] MEDS: Empagliflozin 10 MG TAB PO SCH (09:26)
[2022-10-23] MEDS: Aspirin Chewable 81 MG TAB PO SCH (09:26)
[2022-10-23] MEDS: Heparin 5,000 UNITS/ML VIAL SC SCH ×3 (09:28→20:38)
[2022-10-23 13:22] LABS: Hemoglobin 8.6 g/dL (12.0-16.0); Platelet Count 145 10x3/uL (130-400)
[2022-10-23] MEDS: Furosemide 40 MG TAB PO SCH (19:03)
[2022-10-23] MEDS: Gabapentin 300 MG CAP PO SCH (20:38)
[2022-10-24 04:44] LABS: Hemoglobin 8.7 g/dL (12.0-16.0); Mean Corpuscular HGB CONC 30.6 g/dL (32.0-36.0); Mean Corpuscular Hemoglobin 28.2 pg (27.0-31.0); Mean Corpuscular Volume 92.2 fl (78.0-98.0); Platelet Count 121 10x3/uL (130-400); RBC Distribution Width 21.3 % (11.5-14.5); Red Blood Cell (RBC) Count 3.08 mill/uL (4.20-5.40); White Blood Cell (WBC) Count 6.4 10x3/uL (4.8-10.8)
[2022-10-24 05:05] LABS: Anion Gap 9 mmol/L (10-20); BUN (Urea Nitrogen) 66 mg/dL (9.8-20.1); Calc. Creatinine Clearance 22 mL/min (70-130); Calcium 9.2 mg/dL (7.8-10.44); Carbon Dioxide 29 mmol/L (23-31); Chloride 106 mmol/L (98-107); Estimated GFR 19; Glucose 196 mg/dL (83-110); Sodium 139 mmol/L (136-145)
[2022-10-24] MEDS ORDERED: Metolazone 2.5 MG TAB PO SCH (05:45)
[2022-10-24] MEDS ORDERED: Furosemide 80 MG TAB PO SCH (07:30)
[2022-10-24] MEDS: Empagliflozin 10 MG TAB PO SCH (09:12)
[2022-10-24] MEDS: Spironolactone 25 MG TAB PO SCH (09:12)
[2022-10-24] MEDS: Aspirin Chewable 81 MG TAB PO SCH (09:12)
[2022-10-24] MEDS: Heparin 5,000 UNITS/ML VIAL SC SCH ×2 (09:14→16:51)
[2022-10-24] MEDS: Acetaminophen 500 MG TAB PO PRN (13:48)
[2022-10-24 16:51] VITALS: BP 126/58; TEMP 97.8
[2022-10-24] MEDS: Furosemide 40 MG TAB PO SCH (17:05)
== END 2022-10-24 17:53 | disposition home health service (06) | DRG 291 ==
LOC: SUATTDRO 14:05 → ERS 14:05 → 2NO 18:16
PROVIDERS: ADMIT Family Medicine; ATTEND Internal Medicine
DX: I13.0 Hypertensive heart and chronic kidney disease with heart failure and stage 1 through stage 4 chronic kidney disease, or unspecified chronic kidney disease (principal); I50.23 Acute on chronic systolic (congestive) heart failure; N18.4 Chronic kidney disease, stage 4 (severe); R18.8 Other ascites; I25.10 Atherosclerotic heart disease of native coronary artery without angina pectoris; K74.60 Unspecified cirrhosis of liver; E78.5 Hyperlipidemia, unspecified; Z96.643 Presence of artificial hip joint, bilateral; E11.22 Type 2 diabetes mellitus with diabetic chronic kidney disease; I48.0 Paroxysmal atrial fibrillation; D63.1 Anemia in chronic kidney disease; E87.70 Fluid overload, unspecified; Z79.899 Other long term (current) drug therapy; Z79.82 Long term (current) use of aspirin; Z98.890 Other specified postprocedural states; Z90.49 Acquired absence of other specified parts of digestive tract; Z88.8 Allergy status to other drugs, medicaments and biological substances
CPT/HCPCS: 36415; 36416; 71045; 80048; 80053; 82553; 82728; 83540; 83550; 83880; 84443; 84484; 85025; 85027; 93005; 96374; G0306; J1644; J1815; J1940

== ENCOUNTER 2022-10-26 08:37 | Day surgery (SDC) | payer MEDICARE, BC ==
[2022-10-26] MEDS ORDERED: Sodium Bicarbonate 2.5 MEQ/5 ML VIAL ONE (08:42)
[2022-10-26] MEDS ORDERED: Lidocaine 1% PF 5 ML VIAL ONE (08:42)
[2022-10-26 09:56] VITALS: BP 129/66; TEMP 97.8
== END 2022-10-26 09:57 | disposition home or self-care (01) ==
LOC: ULT 08:37
PROVIDERS: ATTEND Physician Assistant Medical
DX: K74.60 Unspecified cirrhosis of liver (principal); I48.91 Unspecified atrial fibrillation; R18.8 Other ascites; D64.9 Anemia, unspecified; L29.9 Pruritus, unspecified
CPT/HCPCS: 49083

== ENCOUNTER 2022-11-23 08:52 | Day surgery (SDC) | payer MEDICARE, BC ==
[2022-11-23] MEDS ORDERED: Sodium Bicarbonate 2.5 MEQ/5 ML VIAL ONE (08:57)
[2022-11-23] MEDS ORDERED: Lidocaine 1% PF 5 ML VIAL ONE (08:57)
[2022-11-23 10:50] VITALS: BP 120/55
== END 2022-11-23 10:31 | disposition home or self-care (01) ==
LOC: ULT 08:52
PROVIDERS: ATTEND Physician Assistant Medical
DX: R18.8 Other ascites (principal); K74.60 Unspecified cirrhosis of liver; I48.91 Unspecified atrial fibrillation; D64.9 Anemia, unspecified; L29.9 Pruritus, unspecified; Z88.8 Allergy status to other drugs, medicaments and biological substances
CPT/HCPCS: 49083

== ENCOUNTER 2022-12-01 06:59 | Day surgery (SDC) | payer MEDICARE, BC ==
[2022-11-30 09:46] VITALS: BMI 27.6
[2022-12-01] MEDS ORDERED: Lidocaine 1% PF 5 ML VIAL ONE (08:34)
[2022-12-01] MEDS ORDERED: PROPOFOL 200 MG/20 ML VIAL ONE (08:34)
[2022-12-01 09:32] LABS: #Eosinphils 0.3 thou/uL (0.0-0.7); #Monocytes 0.6 thou/uL (0.11-0.59); #Neutrophils 3.6 thou/uL (1.40-6.50); %Basophils 0.5 % (0.0-1.0); %Eosinophils 4.5 % (0.0-10.0); %Lymphocytes 28.1 % (21.0-51.0); %Monocytes 9.8 % (0.0-10.0); %Neutrophils 56.8 % (42.0-75.0); Hemoglobin 8.2 g/dL (12.0-16.0); Mean Corpuscular HGB CONC 29.6 g/dL (32.0-36.0); Mean Corpuscular Hemoglobin 26.8 pg (27.0-31.0); Mean Corpuscular Volume 90.5 fl (78.0-98.0); Red Blood Cell (RBC) Count 3.06 mill/uL (4.20-5.40); White Blood Cell (WBC) Count 6.4 10x3/uL (4.8-10.8)
[2022-12-01 09:48] LABS: Platelet Count 151 10x3/uL (130-400)
[2022-12-01 09:56] LABS: ALT (SGPT) 13 U/L (8-55); AST (SGOT) 26 U/L (5-34); Albumin 2.8 g/dL (3.4-4.8); Alkaline Phosphatase 209 U/L (40-110); Anion Gap 11 mmol/L (10-20); BUN (Urea Nitrogen) 36 mg/dL (9.8-20.1); Bilirubin, Total 0.6 mg/dL (0.2-1.2); Calc. Creatinine Clearance 25 mL/min (70-130); Calcium 8.5 mg/dL (7.8-10.44); Carbon Dioxide 25 mmol/L (23-31); Chloride 106 mmol/L (98-107); Estimated GFR 28; Globulin 3.4 g/dL (2.4-3.5); Glucose 197 mg/dL (83-110); Potassium 4.5 mmol/L (3.5-5.1); Protein, Total 6.2 g/dL (5.8-8.1); Sodium 137 mmol/L (136-145)
== END 2022-12-01 10:05 | disposition home or self-care (01) ==
LOC: SDC 06:59
PROVIDERS: ATTEND Internal Medicine Gastroenterology
PROC: 0DJ08ZZ Inspection of Upper Intestinal Tract, Via Natural or Artificial Opening Endoscopic (ICD-10-PCS; principal; 2022-12-01)
DX: K76.6 Portal hypertension (principal); K31.89 Other diseases of stomach and duodenum; I85.10 Secondary esophageal varices without bleeding; K74.60 Unspecified cirrhosis of liver; I13.0 Hypertensive heart and chronic kidney disease with heart failure and stage 1 through stage 4 chronic kidney disease, or unspecified chronic kidney disease; I50.9 Heart failure, unspecified; E11.22 Type 2 diabetes mellitus with diabetic chronic kidney disease; N18.4 Chronic kidney disease, stage 4 (severe); D63.1 Anemia in chronic kidney disease; I48.91 Unspecified atrial fibrillation; Z79.82 Long term (current) use of aspirin; Z79.899 Other long term (current) drug therapy; Z88.8 Allergy status to other drugs, medicaments and biological substances
CPT/HCPCS: 36415; 80053; 85025; J2704

== ENCOUNTER 2022-12-07 08:18 | Day surgery (SDC) | payer MEDICARE, BC ==
[2022-12-07] MEDS ORDERED: Sodium Bicarbonate 2.5 MEQ/5 ML VIAL ONE (08:27)
[2022-12-07] MEDS ORDERED: Lidocaine 1% PF 5 ML VIAL ONE (08:27)
[2022-12-07 11:52] VITALS: BP 114/42
== END 2022-12-07 09:38 | disposition home or self-care (01) ==
LOC: ULT 08:18
PROVIDERS: ATTEND Physician Assistant Medical
PROC: 0W9G30Z Drainage of Peritoneal Cavity with Drainage Device, Percutaneous Approach (ICD-10-PCS; principal; 2022-12-07)
DX: R18.8 Other ascites (principal); K74.60 Unspecified cirrhosis of liver; I48.91 Unspecified atrial fibrillation; L29.9 Pruritus, unspecified
CPT/HCPCS: 49083

== ENCOUNTER 2022-12-21 08:50 | Day surgery (SDC) | payer MEDICARE, BC ==
[~2022-12-21 08:50] MED LIST changes: -Albumin 25% 100 ML ONE
[2022-12-21 10:17] VITALS: BP 137/46
== END 2022-12-21 10:10 | disposition home or self-care (01) ==
LOC: ULT 08:50
PROVIDERS: ATTEND Physician Assistant Medical
PROC: 0W9G30Z Drainage of Peritoneal Cavity with Drainage Device, Percutaneous Approach (ICD-10-PCS; principal; 2022-12-21)
DX: R18.8 Other ascites (principal); K74.60 Unspecified cirrhosis of liver; I48.91 Unspecified atrial fibrillation; D64.9 Anemia, unspecified; L29.9 Pruritus, unspecified
CPT/HCPCS: 49083

== ENCOUNTER 2023-01-04 08:24 | Day surgery (SDC) | payer MEDICARE, BC ==
[2023-01-04 08:37] LABS: #Eosinphils 0.2 thou/uL (0.0-0.7); #Monocytes 0.5 thou/uL (0.11-0.59); #Neutrophils 3.7 thou/uL (1.40-6.50); %Basophils 0.6 % (0.0-1.0); %Eosinophils 2.8 % (0.0-10.0); %Lymphocytes 18.2 % (21.0-51.0); Hematocrit 30.4 % (36.0-47.0); Hemoglobin 8.9 g/dL (12.0-16.0); Mean Corpuscular HGB CONC 29.3 g/dL (32.0-36.0); Mean Corpuscular Hemoglobin 26.3 pg (27.0-31.0); Mean Corpuscular Volume 89.9 fl (78.0-98.0); Platelet Count 144 10x3/uL (130-400); RBC Distribution Width 21.6 % (11.5-14.5); Red Blood Cell (RBC) Count 3.38 mill/uL (4.20-5.40); White Blood Cell (WBC) Count 5.4 10x3/uL (4.8-10.8)
[2023-01-04] MEDS ORDERED: Sodium Bicarbonate 2.5 MEQ/5 ML VIAL ONE (08:41)
[2023-01-04] MEDS ORDERED: Lidocaine 1% PF 5 ML VIAL ONE (08:41)
[2023-01-04 08:46] LABS: INR-International Normal Ratio 1.1; PTT 32.5 sec (22.9-36.1); Prothrombin Time 15.1 sec (12.0-14.7)
[2023-01-04 12:57] VITALS: BP 130/57
== END 2023-01-04 09:50 | disposition home or self-care (01) ==
LOC: ULT 08:24
PROVIDERS: ATTEND Physician Assistant Medical
PROC: 0W9G30Z Drainage of Peritoneal Cavity with Drainage Device, Percutaneous Approach (ICD-10-PCS; principal; 2023-01-04)
DX: R18.8 Other ascites (principal); K74.60 Unspecified cirrhosis of liver; I48.91 Unspecified atrial fibrillation; D64.9 Anemia, unspecified; L29.9 Pruritus, unspecified; Z88.8 Allergy status to other drugs, medicaments and biological substances; Z79.84 Long term (current) use of oral hypoglycemic drugs
CPT/HCPCS: 49083; 85025; 85610; 85730

== ENCOUNTER → 2023-01-18 | Day surgery (SDC) | payer MEDICARE, BC ==
[~2023-01-18] MED LIST changes: +Albumin 25% 0 ML ONE
== END ==
LOC: ULT 07:54
PROVIDERS: ATTEND Physician Assistant Medical
PROC: 0W9G3ZZ Drainage of Peritoneal Cavity, Percutaneous Approach (ICD-10-PCS; principal; 2023-01-18)
DX: K74.60 Unspecified cirrhosis of liver (principal); R18.8 Other ascites; I48.91 Unspecified atrial fibrillation; D64.9 Anemia, unspecified; L29.9 Pruritus, unspecified; Z88.8 Allergy status to other drugs, medicaments and biological substances
CPT/HCPCS: 49083; P9047

== ENCOUNTER 2023-02-13 20:52 | Inpatient (IN) | payer MEDICARE, BC ==
[2023-02-13] MEDS ORDERED: Acetaminophen 500 MG TAB ONE (21:45)
[2023-02-13 22:09] LABS: #Monocytes 0.6 thou/uL (0.11-0.59); #Neutrophils 19.4 thou/uL (1.40-6.50); %Basophils 0.2 % (0.0-1.0); %Neutrophils 94.4 % (42.0-75.0); Hematocrit 32.8 % (36.0-47.0); Hemoglobin 9.8 g/dL (12.0-16.0); Mean Corpuscular HGB CONC 29.9 g/dL (32.0-36.0); Mean Corpuscular Hemoglobin 28.2 pg (27.0-31.0); Mean Corpuscular Volume 94.3 fl (78.0-98.0); RBC Distribution Width 23.3 % (11.5-14.5); Red Blood Cell (RBC) Count 3.48 mill/uL (4.20-5.40); White Blood Cell (WBC) Count 20.5 10x3/uL (4.8-10.8)
[2023-02-13 22:17] LABS: Mean Platelet Volume 10.7 fL (7.4-10.4); Platelet Count 212 10x3/uL (130-400)
[2023-02-13 22:34] LABS: ALT (SGPT) 22 U/L (8-55); AST (SGOT) 41 U/L (5-34); Albumin 3.4 g/dL (3.4-4.8); Alkaline Phosphatase 274 U/L (40-110); Anion Gap 17 mmol/L (10-20); BUN (Urea Nitrogen) 39 mg/dL (9.8-20.1); Calc. Creatinine Clearance 0 mL/min (70-130); Carbon Dioxide 20 mmol/L (23-31); Chloride 105 mmol/L (98-107); Estimated GFR 26; Globulin 4.1 g/dL (2.4-3.5); Lipase 144 U/L (8-78); Potassium 5.3 mmol/L (3.5-5.1); Protein, Total 7.5 g/dL (5.8-8.1); Sodium 137 mmol/L (136-145)
[2023-02-13 22:43] LABS: Glucose 400 mg/dL (83-110)
[2023-02-13 22:49] LABS: Actual Bicarbonate (HCO3v) 18.2 mEq/L (22-28); Base Excess -5.3 mEq/L (-2.0 to +3.0); Calcium, Ionized (venous) 1.08 mmol/L (1.16-1.32); Chloride (VBG) 106 mmol/L (98-106); Hematocrit-VBG 33 % (36.0-47.0); Hemoglobin (Hb) 11.2 g/dL (11.7-16.1); Potassium (VBG) 4.92 mmol/L (3.70-5.30); Sodium 137 mmol/L (133-146); pH (venous) 7.416 (7.32-7.43)
[2023-02-13] MEDS ORDERED: Aspirin Chewable 81 MG TAB ONE (22:56)
[2023-02-13] MEDS ORDERED: Metoprolol Tartrate 5 MG/5 ML VIAL ONE (23:21)
[2023-02-14] MEDS ORDERED: Ondansetron ODT 4 MG TAB SL PRN (00:45)
[2023-02-14] MEDS ORDERED: Ondansetron PF 4 MG/2 ML Vial IVP PRN (00:45)
[2023-02-14] MEDS ORDERED: Acetaminophen 325 MG TAB PO PRN (00:45)
[2023-02-14] MEDS ORDERED: hydrOXYzine 25 MG TAB PO PRN (03:09)
[2023-02-14] MEDS ORDERED: Dextrose 50% Abboject 50 ML SYRINGE SLOW IVP PRN (03:10)
[2023-02-14] MEDS ORDERED: Glucagon 1 MG/ML KIT IM PRN (03:10)
[2023-02-14] MEDS ORDERED: Dextrose 5% in Water 1,000 ML IV PRN (03:10)
[2023-02-14] MEDS ORDERED: Calcium Carbonate 500 MG ChewTAB PO PRN (03:11)
[2023-02-14 03:40] LABS: Troponin I 0.141 ng/mL (< 0.028)
[2023-02-14 04:33] VITALS: BMI 34.5
[2023-02-14 05:02] LABS: #Eosinphils 0.1 thou/uL (0.0-0.7); #Monocytes 0.5 thou/uL (0.11-0.59); %Basophils 0.3 % (0.0-1.0); %Eosinophils 0.5 % (0.0-10.0); %Lymphocytes 4.9 % (21.0-51.0); %Neutrophils 89.6 % (42.0-75.0); Hematocrit 29.2 % (36.0-47.0); Hemoglobin 8.6 g/dL (12.0-16.0); Mean Corpuscular HGB CONC 29.5 g/dL (32.0-36.0); Mean Corpuscular Hemoglobin 27.3 pg (27.0-31.0); Mean Corpuscular Volume 92.7 fl (78.0-98.0); RBC Distribution Width 23.5 % (11.5-14.5); Red Blood Cell (RBC) Count 3.15 mill/uL (4.20-5.40); White Blood Cell (WBC) Count 13.4 10x3/uL (4.8-10.8)
[2023-02-14 05:10] LABS: Lactic Acid 3.4 mmol/L (0.5-2.2)
[2023-02-14 05:12] LABS: Anion Gap 17 mmol/L (10-20); BUN (Urea Nitrogen) 41 mg/dL (9.8-20.1); Calc. Creatinine Clearance 30 mL/min (70-130); Carbon Dioxide 19 mmol/L (23-31); Chloride 106 mmol/L (98-107); Potassium 4.8 mmol/L (3.5-5.1); Sodium 137 mmol/L (136-145)
[2023-02-14 05:13] LABS: Calcium 9.3 mg/dL (7.8-10.44); Estimated GFR 25; Glucose 359 mg/dL (83-110)
[2023-02-14 05:32] LABS: Anisocytosis MODERATE=16-30 cells HPF (0-5); CellaVision Operator ID lab.abc; Hypochromia SLIGHT = 6-15 cells HPF (0-5); Large Platelets 4.5 % (0-5); Microcytosis SLIGHT = 6-15 cells HPF (0-5); Platelet Adequacy Comment Platelets Normal; Platelet Clumps 0.9 % (0-5); Polychromasia SLIGHT = 2-3 cells HPF (0-2); Smudge Cells 4.5 %
[2023-02-14] MEDS: HumaLOG 300 UNITS/3 ML VIAL SC PRN ×3 (06:41→22:32)
[2023-02-14 07:10] LABS: Bilirubin Negative (Negative); Blood, Urine Negative (Negative); CAUTI Indications for Culture Alt mental st,lethar; Clarity Clear (Clear); Glucose, Urine (Dipstick) Greater than 1000 mg/dL (Negative); Ketone, Urine Negative (Negative); Leukocyte 25 Leu/uL (Negative); Nitrite Negative (Negative); Protein, Urine (Dipstick) Negative (Neg-Trace); RBC/HPF 0-3 HPF (0-3); Specific Gravity, Urine 1.025 (1.002-1.036); Squamous Epithelial 0-3 HPF (0-3); Urobilinogen Normal mg/dL (Less than 2)
[2023-02-14 07:13] LABS: Bacteria/HPF 1+ HPF (None Seen)
[2023-02-14 07:14] LABS: Urine Culture Reflex Yes Yes
[2023-02-14] MEDS ORDERED: Furosemide 40 MG TAB PO SCH (09:00)
[2023-02-14] MEDS ORDERED: FLU VACC QS2023(65UP)/MF59C/PF 60 MCG/0.5 ML SYRINGE IM ONE (09:00)
[2023-02-14] MEDS ORDERED: Famotidine 20 MG TAB PO SCH (09:00)
[2023-02-14] MEDS ORDERED: Spironolactone 25 MG TAB PO SCH (09:00)
[2023-02-14] MEDS: Aspirin Chewable 81 MG TAB PO SCH (10:43)
[2023-02-14] MEDS: Famotidine 20 MG TAB PO SCH (10:43)
[2023-02-14] MEDS: Famotidine/PF 20 mg/2ml Vial SLOW IVP SCH (10:44)
[2023-02-14] MEDS: Empagliflozin 10 MG TAB PO SCH (10:44)
[2023-02-14] MEDS: Gabapentin 300 MG CAP PO SCH (21:00)
[2023-02-14] MEDS: cefTRIAXone\\ROCEPHIN 1 GM in Sodium Chloride 0.9% 100 ML IVPB SCH (21:43)
[2023-02-15] MEDS ORDERED: Acetaminophen 500 MG TAB PO SCH (01:00)
[2023-02-15] MEDS: Acetaminophen 325 MG TAB PO PRN ×4 (06:17→22:25)
[2023-02-15] MEDS: Furosemide 20 MG TAB PO SCH ×2 (06:20→17:14)
[2023-02-15] MEDS: Famotidine 20 MG TAB PO SCH (08:08)
[2023-02-15] MEDS: Empagliflozin 10 MG TAB PO SCH (08:08)
[2023-02-15] MEDS: Aspirin Chewable 81 MG TAB PO SCH (08:08)
[2023-02-15] MEDS: Famotidine/PF 20 mg/2ml Vial SLOW IVP SCH (08:08)
[2023-02-15] MEDS ORDERED: Sodium Bicarbonate 2.5 MEQ/5 ML VIAL ONE (08:36)
[2023-02-15] MEDS ORDERED: Lidocaine 1% PF 5 ML VIAL ONE (08:36)
[2023-02-15] MEDS ORDERED: VANCOMYCIN 1.25 GM/250 ML BAG 1.25 GM in Premix Bag 1 BAG IVPB SCH (10:00)
[2023-02-15 12:35] LABS: Hematocrit 28.2 % (36.0-47.0); Hemoglobin 8.3 g/dL (12.0-16.0); Mean Corpuscular HGB CONC 29.4 g/dL (32.0-36.0); Mean Corpuscular Hemoglobin 27.8 pg (27.0-31.0); Mean Corpuscular Volume 94.3 fl (78.0-98.0); Platelet Count 157 10x3/uL (130-400); RBC Distribution Width 23.9 % (11.5-14.5); Red Blood Cell (RBC) Count 2.99 mill/uL (4.20-5.40)
[2023-02-15 12:36] LABS: Delete Auto Diff?? YES; Manual Diff?? YES
[2023-02-15 12:55] LABS: Anion Gap 15 mmol/L (10-20); BUN (Urea Nitrogen) 57 mg/dL (9.8-20.1); Calc. Creatinine Clearance 25 mL/min (70-130); Calcium 8.7 mg/dL (7.8-10.44); Carbon Dioxide 19 mmol/L (23-31); Chloride 102 mmol/L (98-107); Estimated GFR 20; Glucose 249 mg/dL (83-110); Potassium 5.2 mmol/L (3.5-5.1); Sodium 131 mmol/L (136-145)
[2023-02-15 14:06] LABS: Anisocytosis MODERATE=16-30 cells HPF (0-5); Band 20 % (5-11); CellaVision Operator ID LAB.KB; Large Platelets 5.7 % (0-5); Lymphocytes 2 % (21-51); Monocytes 3 % (0-10); Neutrophil 75 % (42-75); Nucleated RBC (Manual Ct) 2 % (0); Ovalocytes SLIGHT = 2-5 cells HPF (0-1); Platelet Adequacy Comment Platelets Normal; Platelet Clumps 3.8 % (0-5); Polychromasia SLIGHT = 2-3 cells HPF (0-2); Smudge Cells 4.8 %; Total Cell Count 105
[2023-02-15] MEDS: HumaLOG 300 UNITS/3 ML VIAL SC PRN ×2 (17:15→22:24)
[2023-02-15 19:37] LABS: Lactic Acid 3.6 mmol/L (0.5-2.2)
[2023-02-15 19:46] LABS: Troponin I 0.137 ng/mL (< 0.028)
[2023-02-15] MEDS ORDERED: Vancomycin HCl 750 MG in Sodium Chloride 0.9% 250 ML 250 ML IVPB SCH (21:00)
[2023-02-15] MEDS: cefTRIAXone\\ROCEPHIN 1 GM in Sodium Chloride 0.9% 100 ML IVPB SCH (22:10)
[2023-02-15] MEDS: Metoprolol Tartrate 25 MG TAB PO SCH (22:11)
[2023-02-15] MEDS: Gabapentin 300 MG CAP PO SCH (22:12)
[2023-02-15] MEDS: Insulin Glargine 30 UNITS/0.3 ML VIAL SC SCH (22:17)
[2023-02-15] MEDS: Heparin 5,000 UNITS/ML VIAL SC SCH (22:17)
[2023-02-16 04:06] LABS: #Basophils 0.1 thou/uL (0.0-0.2); #Eosinphils 0.1 thou/uL (0.0-0.7); #Monocytes 0.4 thou/uL (0.11-0.59); #Neutrophils 16.4 thou/uL (1.40-6.50); %Basophils 0.3 % (0.0-1.0); %Eosinophils 0.6 % (0.0-10.0); %Monocytes 2.1 % (0.0-10.0); Hematocrit 28.4 % (36.0-47.0); Hemoglobin 8.6 g/dL (12.0-16.0); Mean Corpuscular HGB CONC 30.3 g/dL (32.0-36.0); Mean Corpuscular Hemoglobin 27.7 pg (27.0-31.0); Platelet Count 125 10x3/uL (130-400); RBC Distribution Width 23.4 % (11.5-14.5); Red Blood Cell (RBC) Count 3.11 mill/uL (4.20-5.40); White Blood Cell (WBC) Count 17.9 10x3/uL (4.8-10.8)
[2023-02-16 04:29] LABS: Lactic Acid 2.7 mmol/L (0.5-2.2)
[2023-02-16 04:37] LABS: Mean Corpuscular Volume 91.3 fl (78.0-98.0)
[2023-02-16 04:43] LABS: Anion Gap 14 mmol/L (10-20); BUN (Urea Nitrogen) 62 mg/dL (9.8-20.1); Calc. Creatinine Clearance 24 mL/min (70-130); Calcium 8.9 mg/dL (7.8-10.44); Carbon Dioxide 22 mmol/L (23-31); Chloride 103 mmol/L (98-107); Estimated GFR 20; Glucose 133 mg/dL (83-110); Sodium 134 mmol/L (136-145)
[2023-02-16] MEDS: Furosemide 20 MG TAB PO SCH ×2 (05:00→17:44)
[2023-02-16] MEDS: Insulin Glargine 30 UNITS/0.3 ML VIAL SC SCH ×2 (08:27→21:40)
[2023-02-16] MEDS: Acetaminophen 325 MG TAB PO PRN (08:28)
[2023-02-16] MEDS: Metoprolol Tartrate 25 MG TAB PO SCH ×2 (08:28→21:36)
[2023-02-16] MEDS: Heparin 5,000 UNITS/ML VIAL SC SCH ×2 (08:28→21:40)
[2023-02-16] MEDS: Empagliflozin 10 MG TAB PO SCH (08:28)
[2023-02-16] MEDS: Aspirin Chewable 81 MG TAB PO SCH (08:29)
[2023-02-16] MEDS: cefTRIAXone\\ROCEPHIN 2 GM in Sodium Chloride 0.9% 100 ML IVPB SCH (21:35)
[2023-02-16] MEDS: Gabapentin 300 MG CAP PO SCH (21:38)
[2023-02-17 08:57] LABS: #Basophils 0.1 thou/uL (0.0-0.2); #Eosinphils 0.1 thou/uL (0.0-0.7); #Monocytes 0.9 thou/uL (0.11-0.59); #Neutrophils 11.1 thou/uL (1.40-6.50); %Basophils 0.4 % (0.0-1.0); %Lymphocytes 8.7 % (21.0-51.0); %Monocytes 6.5 % (0.0-10.0); %Neutrophils 82.1 % (42.0-75.0); Hematocrit 28.7 % (36.0-47.0); Hemoglobin 8.7 g/dL (12.0-16.0); Mean Corpuscular HGB CONC 30.3 g/dL (32.0-36.0); Mean Corpuscular Hemoglobin 27.1 pg (27.0-31.0); Mean Corpuscular Volume 89.4 fl (78.0-98.0); RBC Distribution Width 23.6 % (11.5-14.5); Red Blood Cell (RBC) Count 3.21 mill/uL (4.20-5.40); White Blood Cell (WBC) Count 13.5 10x3/uL (4.8-10.8)
[2023-02-17] MEDS ORDERED: (Dulaglutide [Trulicity] 1.5 MG/0.5 ML Pen.Injctr) SC SCH (09:00)
[2023-02-17 09:12] LABS: Lactic Acid 1.7 mmol/L (0.5-2.2)
[2023-02-17 09:15] LABS: Anion Gap 10 mmol/L (10-20); BUN (Urea Nitrogen) 66 mg/dL (9.8-20.1); Calc. Creatinine Clearance 32 mL/min (70-130); Calcium 8.8 mg/dL (7.8-10.44); Carbon Dioxide 25 mmol/L (23-31); Chloride 103 mmol/L (98-107); Estimated GFR 26; Glucose 173 mg/dL (83-110); Potassium 4.7 mmol/L (3.5-5.1); Sodium 133 mmol/L (136-145)
[2023-02-17] MEDS: Acetaminophen 325 MG TAB PO PRN (09:53)
[2023-02-17] MEDS: Metoprolol Tartrate 25 MG TAB PO SCH ×2 (09:54→20:43)
[2023-02-17] MEDS: Empagliflozin 10 MG TAB PO SCH (09:55)
[2023-02-17] MEDS: Aspirin Chewable 81 MG TAB PO SCH (09:55)
[2023-02-17] MEDS: Heparin 5,000 UNITS/ML VIAL SC SCH ×2 (09:56→20:43)
[2023-02-17] MEDS: Furosemide 20 MG TAB PO SCH ×2 (09:56→18:45)
[2023-02-17] MEDS: Famotidine 20 MG TAB PO SCH (10:01)
[2023-02-17] MEDS: Famotidine/PF 20 mg/2ml Vial SLOW IVP SCH (10:01)
[2023-02-17 10:11] LABS: Platelet Adequacy Comment PLT clumps seen-ADEQ; Polychromasia SLIGHT = 2-3 cells (100X) (0-2/hpf)
[2023-02-17 10:12] LABS: Platelet Clumps MODERATE
[2023-02-17] MEDS: Insulin Glargine 30 UNITS/0.3 ML VIAL SC SCH ×2 (10:24→20:44)
[2023-02-17] MEDS: HYDROcodone/Acetaminophen 5/325 mg Tablet PO PRN (14:22)
[2023-02-17] MEDS: cefTRIAXone\\ROCEPHIN 2 GM in Sodium Chloride 0.9% 100 ML IVPB SCH (20:43)
[2023-02-17] MEDS: Gabapentin 300 MG CAP PO SCH (20:44)
[2023-02-18] MEDS: HYDROcodone/Acetaminophen 5/325 mg Tablet PO PRN ×4 (00:49→20:40)
[2023-02-18] MEDS: Furosemide 20 MG TAB PO SCH ×2 (05:04→17:49)
[2023-02-18] MEDS: Metoprolol Tartrate 25 MG TAB PO SCH ×2 (08:58→20:07)
[2023-02-18] MEDS: Aspirin Chewable 81 MG TAB PO SCH (08:59)
[2023-02-18] MEDS: Empagliflozin 10 MG TAB PO SCH (08:59)
[2023-02-18] MEDS: Insulin Glargine 30 UNITS/0.3 ML VIAL SC SCH ×2 (09:00→20:28)
[2023-02-18] MEDS: Heparin 5,000 UNITS/ML VIAL SC SCH ×2 (09:00→20:40)
[2023-02-18] MEDS: HumaLOG 300 UNITS/3 ML VIAL SC PRN ×3 (12:44→23:07)
[2023-02-18] MEDS: cefTRIAXone\\ROCEPHIN 2 GM in Sodium Chloride 0.9% 100 ML IVPB SCH (20:07)
[2023-02-18] MEDS: Gabapentin 300 MG CAP PO SCH (20:08)
[2023-02-18] MEDS: Acetaminophen 325 MG TAB PO PRN (23:06)
[2023-02-19 04:33] LABS: #Basophils 0.1 thou/uL (0.0-0.2); #Eosinphils 0.1 thou/uL (0.0-0.7); #Monocytes 1.1 thou/uL (0.11-0.59); #Neutrophils 4.2 thou/uL (1.40-6.50); %Basophils 0.9 % (0.0-1.0); %Eosinophils 1.3 % (0.0-10.0); %Lymphocytes 16.3 % (21.0-51.0); %Monocytes 15.4 % (0.0-10.0); %Neutrophils 60.8 % (42.0-75.0); Hematocrit 24.6 % (36.0-47.0); Hemoglobin 7.4 g/dL (12.0-16.0); Mean Corpuscular HGB CONC 30.1 g/dL (32.0-36.0); Mean Corpuscular Hemoglobin 26.9 pg (27.0-31.0); Mean Corpuscular Volume 89.5 fl (78.0-98.0); Platelet Count 112 10x3/uL (130-400); RBC Distribution Width 23.5 % (11.5-14.5); Red Blood Cell (RBC) Count 2.75 mill/uL (4.20-5.40); White Blood Cell (WBC) Count 6.8 10x3/uL (4.8-10.8)
[2023-02-19 05:04] LABS: Albumin 2.4 g/dL (3.4-4.8); Anion Gap 12 mmol/L (10-20); BUN (Urea Nitrogen) 58 mg/dL (9.8-20.1); BUN/Creatinine Ratio 36.48; Calc. Creatinine Clearance 36 mL/min (70-130); Calcium 8.6 mg/dL (7.8-10.44); Carbon Dioxide 23 mmol/L (23-31); Chloride 104 mmol/L (98-107); Estimated GFR 31; Glucose 123 mg/dL (83-110); Phosphorus 2.6 mg/dL (2.3-4.7); Potassium 4.6 mmol/L (3.5-5.1); Sodium 134 mmol/L (136-145)
[2023-02-19] MEDS: Furosemide 20 MG TAB PO SCH ×2 (05:14→17:37)
[2023-02-19] MEDS: HYDROcodone/Acetaminophen 5/325 mg Tablet PO PRN ×3 (06:31→20:06)
[2023-02-19] MEDS: Aspirin Chewable 81 MG TAB PO SCH (09:29)
[2023-02-19] MEDS: Metoprolol Tartrate 25 MG TAB PO SCH ×2 (09:30→19:49)
[2023-02-19] MEDS: Famotidine 20 MG TAB PO SCH (09:30)
[2023-02-19] MEDS: Empagliflozin 10 MG TAB PO SCH (09:30)
[2023-02-19] MEDS: Insulin Glargine 30 UNITS/0.3 ML VIAL SC SCH ×2 (09:31→21:12)
[2023-02-19] MEDS: Heparin 5,000 UNITS/ML VIAL SC SCH ×2 (09:31→19:51)
[2023-02-19] MEDS: Famotidine/PF 20 mg/2ml Vial SLOW IVP SCH (09:32)
[2023-02-19] MEDS ORDERED: HYDROcodone/Acetaminophen 5/325 mg Tablet PO SCH (16:15)
[2023-02-19] MEDS: HumaLOG 300 UNITS/3 ML VIAL SC PRN ×2 (17:41→21:15)
[2023-02-19] MEDS: cefTRIAXone\\ROCEPHIN 2 GM in Sodium Chloride 0.9% 100 ML IVPB SCH (19:49)
[2023-02-19] MEDS: Gabapentin 300 MG CAP PO SCH (19:50)
[2023-02-20 04:52] LABS: Hematocrit 28.2 % (36.0-47.0); Hemoglobin 8.4 g/dL (12.0-16.0); Mean Corpuscular HGB CONC 29.8 g/dL (32.0-36.0); Mean Corpuscular Hemoglobin 27.5 pg (27.0-31.0); Mean Corpuscular Volume 92.2 fl (78.0-98.0); Platelet Count 173 10x3/uL (130-400); RBC Distribution Width 23.6 % (11.5-14.5); Red Blood Cell (RBC) Count 3.06 mill/uL (4.20-5.40); White Blood Cell (WBC) Count 10.2 10x3/uL (4.8-10.8)
[2023-02-20 05:01] LABS: Delete Auto Diff?? YES; Manual Diff?? YES
[2023-02-20 05:11] LABS: Anion Gap 12 mmol/L (10-20); BUN (Urea Nitrogen) 52 mg/dL (9.8-20.1); Calc. Creatinine Clearance 42 mL/min (70-130); Calcium 8.6 mg/dL (7.8-10.44); Carbon Dioxide 23 mmol/L (23-31); Chloride 102 mmol/L (98-107); Estimated GFR 36; Glucose 198 mg/dL (83-110); Sodium 132 mmol/L (136-145)
[2023-02-20] MEDS: Furosemide 20 MG TAB PO SCH ×2 (05:21→18:29)
[2023-02-20] MEDS: HYDROcodone/Acetaminophen 5/325 mg Tablet PO PRN ×3 (05:23→21:53)
[2023-02-20 05:37] LABS: Anisocytosis MARKED = >30 cells HPF (0-5); CellaVision Operator ID lab.sh2; Eosinophils 3 % (0-10); Hypochromia SLIGHT = 6-15 cells HPF (0-5); Large Platelets 14.7 % (0-5); Lymphocytes 12 % (21-51); Macrocytosis MODERATE=16-30 cells HPF (0-5); Monocytes 18 % (0-10); Neutrophil 68 % (42-75); Ovalocytes SLIGHT = 2-5 cells HPF (0-1); Platelet Adequacy Comment Platelets Normal; Platelet Clumps 9.8 % (0-5); Poikilocytosis SLIGHT = 6-15 cells HPF (0-5); Polychromasia SLIGHT = 2-3 cells HPF (0-2); Smudge Cells 2.9 %; Total Cell Count 102
[2023-02-20] MEDS: Gabapentin 300 MG CAP PO SCH ×3 (09:45→21:44)
[2023-02-20] MEDS: Aspirin Chewable 81 MG TAB PO SCH (09:45)
[2023-02-20] MEDS: Heparin 5,000 UNITS/ML VIAL SC SCH ×2 (09:45→21:44)
[2023-02-20] MEDS: Metoprolol Tartrate 25 MG TAB PO SCH ×2 (09:45→21:45)
[2023-02-20] MEDS: Empagliflozin 10 MG TAB PO SCH (09:45)
[2023-02-20] MEDS: Insulin Glargine 30 UNITS/0.3 ML VIAL SC SCH ×2 (09:45→21:45)
[2023-02-20] MEDS ORDERED: Hydrocortisone 2.5% Cream 30 GM TUBE TOP PRN (16:13)
[2023-02-20] MEDS: HumaLOG 300 UNITS/3 ML VIAL SC PRN ×2 (18:29→21:51)
[2023-02-20] MEDS: cefTRIAXone\\ROCEPHIN 2 GM in Sodium Chloride 0.9% 100 ML IVPB SCH (21:44)
[2023-02-21] MEDS: Acetaminophen 325 MG TAB PO PRN (04:32)
[2023-02-21 04:46] LABS: Hematocrit 24.4 % (36.0-47.0); Hemoglobin 7.4 g/dL (12.0-16.0); Mean Corpuscular HGB CONC 30.3 g/dL (32.0-36.0); Mean Corpuscular Hemoglobin 27.1 pg (27.0-31.0); Platelet Count 188 10x3/uL (130-400); RBC Distribution Width 23.2 % (11.5-14.5); Red Blood Cell (RBC) Count 2.73 mill/uL (4.20-5.40); White Blood Cell (WBC) Count 11.5 10x3/uL (4.8-10.8)
[2023-02-21 04:48] LABS: Delete Auto Diff?? YES; Mean Corpuscular Volume 89.4 fl (78.0-98.0)
[2023-02-21 04:52] LABS: Manual Diff?? YES
[2023-02-21 05:05] LABS: Anion Gap 13 mmol/L (10-20); BUN (Urea Nitrogen) 50 mg/dL (9.8-20.1); Calc. Creatinine Clearance 42 mL/min (70-130); Calcium 8.6 mg/dL (7.8-10.44); Carbon Dioxide 25 mmol/L (23-31); Chloride 101 mmol/L (98-107); Estimated GFR 37; Glucose 149 mg/dL (83-110); Potassium 4.9 mmol/L (3.5-5.1); Sodium 134 mmol/L (136-145)
[2023-02-21 05:11] LABS: Band 7 % (5-11); CellaVision Operator ID LAB.CLH1; Eosinophils 1 % (0-10); Hypochromia SLIGHT = 6-15 cells HPF (0-5); Large Platelets 8.9 % (0-5); Lymphocytes 8 % (21-51); Metamyelocyte 1 % (0-0); Monocytes 10 % (0-10); Neutrophil 66 % (42-75); Platelet Adequacy Comment Platelets Normal; Polychromasia MODERATE = 3-4 cells HPF (0-2); Reactive Lymphocytes 2 % (0-10); Target Cells SLIGHT = 2-5 cells HPF (0-1); Total Cell Count 101
[2023-02-21] MEDS: Furosemide 20 MG TAB PO SCH (06:27)
[2023-02-21] MEDS: Metoprolol Tartrate 25 MG TAB PO SCH ×2 (08:58→20:51)
[2023-02-21] MEDS: Aspirin Chewable 81 MG TAB PO SCH (08:58)
[2023-02-21] MEDS: Empagliflozin 10 MG TAB PO SCH (08:58)
[2023-02-21] MEDS: Gabapentin 300 MG CAP PO SCH ×3 (08:59→20:51)
[2023-02-21] MEDS: Famotidine 20 MG TAB PO SCH (08:59)
[2023-02-21] MEDS: HYDROcodone/Acetaminophen 5/325 mg Tablet PO PRN (08:59)
[2023-02-21] MEDS: Insulin Glargine 30 UNITS/0.3 ML VIAL SC SCH ×2 (08:59→20:51)
[2023-02-21] MEDS: Heparin 5,000 UNITS/ML VIAL SC SCH ×2 (08:59→20:51)
[2023-02-21] MEDS: Famotidine/PF 20 mg/2ml Vial SLOW IVP SCH (08:59)
[2023-02-21] MEDS ORDERED: Torsemide 10 MG TAB PO SCH (10:00)
[2023-02-21] MEDS ORDERED: HYDROcodone/Acetaminophen 5/325 mg Tablet PO SCH (11:30)
[2023-02-21] MEDS: HumaLOG 300 UNITS/3 ML VIAL SC PRN ×3 (12:57→20:53)
[2023-02-21] MEDS: Torsemide 10 MG TAB PO SCH (12:57)
[2023-02-21] MEDS: HYDROcodone/Acetaminophen 10/325 mg Tablet PO PRN ×2 (18:04→23:45)
[2023-02-21] MEDS: cefTRIAXone\\ROCEPHIN 2 GM in Sodium Chloride 0.9% 100 ML IVPB SCH (20:51)
[2023-02-22 04:45] LABS: Hematocrit 26.4 % (36.0-47.0); Hemoglobin 7.7 g/dL (12.0-16.0); Mean Corpuscular HGB CONC 29.2 g/dL (32.0-36.0); Mean Corpuscular Hemoglobin 26.7 pg (27.0-31.0); Mean Corpuscular Volume 91.7 fl (78.0-98.0); Platelet Count 224 10x3/uL (130-400); RBC Distribution Width 23.5 % (11.5-14.5); Red Blood Cell (RBC) Count 2.88 mill/uL (4.20-5.40); White Blood Cell (WBC) Count 14.1 10x3/uL (4.8-10.8)
[2023-02-22 04:48] LABS: Delete Auto Diff?? YES; Manual Diff?? YES
[2023-02-22 05:08] LABS: Anion Gap 12 mmol/L (10-20); BUN (Urea Nitrogen) 50 mg/dL (9.8-20.1); Calc. Creatinine Clearance 37 mL/min (70-130); Calcium 8.7 mg/dL (7.8-10.44); Carbon Dioxide 26 mmol/L (23-31); Chloride 101 mmol/L (98-107); Estimated GFR 32; Glucose 163 mg/dL (83-110); Potassium 4.8 mmol/L (3.5-5.1); Sodium 134 mmol/L (136-145)
[2023-02-22 05:17] LABS: Anisocytosis MODERATE=16-30 cells HPF (0-5); CellaVision Operator ID lab.sh2; Eosinophils 2 % (0-10); Hypochromia SLIGHT = 6-15 cells HPF (0-5); Large Platelets 12.7 % (0-5); Lymphocytes 5 % (21-51); Macrocytosis MODERATE=16-30 cells HPF (0-5); Monocytes 8 % (0-10); Neutrophil 85 % (42-75); Nucleated RBC (Manual Ct) 1 % (0); Platelet Adequacy Comment Platelets Normal; Platelet Clumps 3.9 % (0-5); Poikilocytosis SLIGHT = 6-15 cells HPF (0-5); Polychromasia MODERATE = 3-4 cells HPF (0-2); Smudge Cells 8.8 %; Target Cells SLIGHT = 2-5 cells HPF (0-1); Total Cell Count 102
[2023-02-22] MEDS: Heparin 5,000 UNITS/ML VIAL SC SCH ×2 (09:47→23:01)
[2023-02-22] MEDS: Insulin Glargine 30 UNITS/0.3 ML VIAL SC SCH ×2 (09:47→21:13)
[2023-02-22] MEDS: Gabapentin 300 MG CAP PO SCH ×3 (09:48→22:47)
[2023-02-22] MEDS: Empagliflozin 10 MG TAB PO SCH (09:48)
[2023-02-22] MEDS: Torsemide 10 MG TAB PO SCH ×2 (09:48→17:57)
[2023-02-22] MEDS: Metoprolol Tartrate 25 MG TAB PO SCH ×2 (09:48→22:48)
[2023-02-22] MEDS: Aspirin Chewable 81 MG TAB PO SCH (09:48)
[2023-02-22] MEDS: HYDROcodone/Acetaminophen 10/325 mg Tablet PO PRN ×3 (09:49→22:46)
[2023-02-22] MEDS: cefTRIAXone\\ROCEPHIN 2 GM in Sodium Chloride 0.9% 100 ML IVPB SCH (22:48)
[2023-02-22] MEDS: HumaLOG 300 UNITS/3 ML VIAL SC PRN (23:17)
[2023-02-23 04:10] LABS: #Basophils 0.1 thou/uL (0.0-0.2); #Eosinphils 0.1 thou/uL (0.0-0.7); #Monocytes 1.4 thou/uL (0.11-0.59); #Neutrophils 8.5 thou/uL (1.40-6.50); %Basophils 0.5 % (0.0-1.0); %Eosinophils 0.7 % (0.0-10.0); %Lymphocytes 13.3 % (21.0-51.0); %Monocytes 11.6 % (0.0-10.0); %Neutrophils 69.3 % (42.0-75.0); Hematocrit 26.3 % (36.0-47.0); Hemoglobin 7.9 g/dL (12.0-16.0); Mean Corpuscular Hemoglobin 27.5 pg (27.0-31.0); Mean Corpuscular Volume 91.6 fl (78.0-98.0); Platelet Count 229 10x3/uL (130-400); RBC Distribution Width 23.5 % (11.5-14.5); Red Blood Cell (RBC) Count 2.87 mill/uL (4.20-5.40); White Blood Cell (WBC) Count 12.3 10x3/uL (4.8-10.8)
[2023-02-23 04:38] LABS: Anion Gap 13 mmol/L (10-20); BUN (Urea Nitrogen) 51 mg/dL (9.8-20.1); Calc. Creatinine Clearance 31 mL/min (70-130); Calcium 8.5 mg/dL (7.8-10.44); Carbon Dioxide 23 mmol/L (23-31); Chloride 103 mmol/L (98-107); Estimated GFR 26; Glucose 201 mg/dL (83-110); Potassium 5.4 mmol/L (3.5-5.1); Sodium 134 mmol/L (136-145)
[2023-02-23] MEDS: HYDROcodone/Acetaminophen 10/325 mg Tablet PO PRN ×2 (05:03→09:29)
[2023-02-23] MEDS: HumaLOG 300 UNITS/3 ML VIAL SC PRN (06:28)
[2023-02-23] MEDS: Insulin Glargine 30 UNITS/0.3 ML VIAL SC SCH ×2 (09:29→21:33)
[2023-02-23] MEDS: Heparin 5,000 UNITS/ML VIAL SC SCH ×2 (09:29→21:33)
[2023-02-23] MEDS: Metoprolol Tartrate 25 MG TAB PO SCH ×2 (09:30→21:32)
[2023-02-23] MEDS: Aspirin Chewable 81 MG TAB PO SCH (09:30)
[2023-02-23] MEDS: Gabapentin 300 MG CAP PO SCH ×3 (09:30→21:32)
[2023-02-23] MEDS: Empagliflozin 10 MG TAB PO SCH (09:30)
[2023-02-23] MEDS: Famotidine 20 MG TAB PO SCH (09:30)
[2023-02-23] MEDS: Torsemide 10 MG TAB PO SCH ×2 (09:30→15:50)
[2023-02-23] MEDS: Famotidine/PF 20 mg/2ml Vial SLOW IVP SCH (09:30)
[2023-02-23] MEDS ORDERED: Dextrose 50% Abboject 50 ML SYRINGE SLOW IVP SCH ×2 (09:58→18:15)
[2023-02-23] MEDS ORDERED: Insulin Regular 300 UNITS/3 ML VIAL IVP SCH (10:00)
[2023-02-23] MEDS ORDERED: Lactated Ringer's 1,000 ML IV SCH (10:00)
[2023-02-23] MEDS ORDERED: Torsemide 10 MG TAB PO SCH (10:45)
[2023-02-23] MEDS ORDERED: AMOXicillin 250 MG CAP PO SCH (10:45)
[2023-02-23] MEDS: HYDROcodone/Acetaminophen 5/325 mg Tablet PO PRN (20:30)
[2023-02-23] MEDS: AMOXicillin 250 MG CAP PO SCH (21:32)
[2023-02-24 04:12] LABS: #Basophils 0.1 thou/uL (0.0-0.2); #Eosinphils 0.1 thou/uL (0.0-0.7); #Monocytes 1.6 thou/uL (0.11-0.59); #Neutrophils 10.2 thou/uL (1.40-6.50); %Basophils 0.4 % (0.0-1.0); %Eosinophils 0.7 % (0.0-10.0); %Lymphocytes 12.2 % (21.0-51.0); %Neutrophils 71.2 % (42.0-75.0); Mean Corpuscular HGB CONC 29.6 g/dL (32.0-36.0); Mean Corpuscular Hemoglobin 27.4 pg (27.0-31.0); Mean Corpuscular Volume 92.5 fl (78.0-98.0); Platelet Count 235 10x3/uL (130-400); RBC Distribution Width 23.6 % (11.5-14.5); Red Blood Cell (RBC) Count 2.92 mill/uL (4.20-5.40); White Blood Cell (WBC) Count 14.2 10x3/uL (4.8-10.8)
[2023-02-24 04:32] LABS: Albumin 2.6 g/dL (3.4-4.8); Anion Gap 16 mmol/L (10-20); BUN (Urea Nitrogen) 50 mg/dL (9.8-20.1); BUN/Creatinine Ratio 28.74; Calc. Creatinine Clearance 34 mL/min (70-130); Calcium 8.8 mg/dL (7.8-10.44); Carbon Dioxide 25 mmol/L (23-31); Chloride 99 mmol/L (98-107); Estimated GFR 28; Glucose 151 mg/dL (83-110); Phosphorus 3.5 mg/dL (2.3-4.7); Potassium 4.9 mmol/L (3.5-5.1); Sodium 135 mmol/L (136-145)
[2023-02-24] MEDS: HYDROcodone/Acetaminophen 5/325 mg Tablet PO PRN ×3 (05:42→21:42)
[2023-02-24] MEDS: Acetaminophen 325 MG TAB PO PRN ×2 (09:15→17:09)
[2023-02-24] MEDS: Empagliflozin 10 MG TAB PO SCH (09:16)
[2023-02-24] MEDS: Torsemide 10 MG TAB PO SCH ×2 (09:16→13:55)
[2023-02-24] MEDS: Metoprolol Tartrate 25 MG TAB PO SCH ×2 (09:16→20:31)
[2023-02-24] MEDS: Gabapentin 300 MG CAP PO SCH ×3 (09:16→20:31)
[2023-02-24] MEDS: Heparin 5,000 UNITS/ML VIAL SC SCH ×2 (09:16→20:32)
[2023-02-24] MEDS: Aspirin Chewable 81 MG TAB PO SCH (09:16)
[2023-02-24] MEDS: AMOXicillin 250 MG CAP PO SCH ×2 (09:16→20:32)
[2023-02-24] MEDS: Insulin Glargine 30 UNITS/0.3 ML VIAL SC SCH ×2 (09:17→20:32)
[2023-02-24] MEDS ORDERED: Senokot S 8.6-50 MG TAB PO SCH (23:45)
[2023-02-25] MEDS ORDERED: Mineral Oil ENEMA PR SCH (00:15)
[2023-02-25 04:28] LABS: #Basophils 0.1 thou/uL (0.0-0.2); #Eosinphils 0.1 thou/uL (0.0-0.7); #Monocytes 1.3 thou/uL (0.11-0.59); #Neutrophils 8.5 thou/uL (1.40-6.50); %Basophils 0.6 % (0.0-1.0); %Eosinophils 0.7 % (0.0-10.0); %Monocytes 10.6 % (0.0-10.0); %Neutrophils 72.5 % (42.0-75.0); Hematocrit 26.7 % (36.0-47.0); Hemoglobin 7.9 g/dL (12.0-16.0); Mean Corpuscular HGB CONC 29.6 g/dL (32.0-36.0); Mean Corpuscular Hemoglobin 26.7 pg (27.0-31.0); Mean Corpuscular Volume 90.2 fl (78.0-98.0); Platelet Count 208 10x3/uL (130-400); RBC Distribution Width 23.5 % (11.5-14.5); Red Blood Cell (RBC) Count 2.96 mill/uL (4.20-5.40); White Blood Cell (WBC) Count 11.8 10x3/uL (4.8-10.8)
[2023-02-25] MEDS: HumaLOG 300 UNITS/3 ML VIAL SC PRN (05:57)
[2023-02-25] MEDS ORDERED: Senokot S 8.6-50 MG TAB PO SCH (09:00)
[2023-02-25] MEDS ORDERED: Polyethylene Glycol 3350 17 GM Packet PO SCH (09:00)
[2023-02-25] MEDS: Aspirin Chewable 81 MG TAB PO SCH (10:10)
[2023-02-25] MEDS: AMOXicillin 250 MG CAP PO SCH (10:10)
[2023-02-25] MEDS: Torsemide 10 MG TAB PO SCH ×2 (10:10→13:48)
[2023-02-25] MEDS: Gabapentin 300 MG CAP PO SCH ×2 (10:11→16:32)
[2023-02-25] MEDS: Famotidine 20 MG TAB PO SCH (10:11)
[2023-02-25] MEDS: Metoprolol Tartrate 25 MG TAB PO SCH (10:12)
[2023-02-25] MEDS: Heparin 5,000 UNITS/ML VIAL SC SCH (10:13)
[2023-02-25] MEDS: Famotidine/PF 20 mg/2ml Vial SLOW IVP SCH (10:14)
[2023-02-25] MEDS: Empagliflozin 10 MG TAB PO SCH (10:15)
[2023-02-25] MEDS: Insulin Glargine 30 UNITS/0.3 ML VIAL SC SCH (10:15)
[2023-02-25 16:47] VITALS: BP 109/52; TEMP 98.3
== END 2023-02-25 17:47 | DRG 871 ==
LOC: ERS 20:52 → 2NO 02-14 00:34 → OBSVTOIN 02-14 07:10
PROVIDERS: ADMIT Student in an Organized Health Care Education/Training Program; ATTEND Internal Medicine
PROC: 4A043R1 Measurement of Venous Saturation, Peripheral, Percutaneous Approach (ICD-10-PCS; 2023-02-13)
PROC: 3E03329 Introduction of Other Anti-infective into Peripheral Vein, Percutaneous Approach (ICD-10-PCS; 2023-02-14)
PROC: 0W9G3ZZ Drainage of Peritoneal Cavity, Percutaneous Approach (ICD-10-PCS; principal; 2023-02-15)
PROC: BW40ZZZ Ultrasonography of Abdomen (ICD-10-PCS; 2023-02-15)
DX: A40.1 Sepsis due to streptococcus, group B (principal); I21.A1 Myocardial infarction type 2; I50.43 Acute on chronic combined systolic (congestive) and diastolic (congestive) heart failure; I48.20 Chronic atrial fibrillation, unspecified; N17.9 Acute kidney failure, unspecified; N18.4 Chronic kidney disease, stage 4 (severe); R18.8 Other ascites; N39.0 Urinary tract infection, site not specified; E11.22 Type 2 diabetes mellitus with diabetic chronic kidney disease; Z96.643 Presence of artificial hip joint, bilateral; E87.5 Hyperkalemia; R77.8 Other specified abnormalities of plasma proteins; I34.0 Nonrheumatic mitral (valve) insufficiency; K74.60 Unspecified cirrhosis of liver; S52.135A Nondisplaced fracture of neck of left radius, initial encounter for closed fracture; M79.89 Other specified soft tissue disorders; R53.1 Weakness; Z79.82 Long term (current) use of aspirin; Z79.899 Other long term (current) drug therapy; Z88.8 Allergy status to other drugs, medicaments and biological substances; Z90.49 Acquired absence of other specified parts of digestive tract; Z98.890 Other specified postprocedural states
CPT/HCPCS: 36415; 36416; 49083; 71045; 80048; 80053; 80069; 81001; 82805; 83605; 83690; 83880; 84484; 85025; 87040; 87077; 87086; 87149; 87186; 93005; 93970; 96372; 96374; G0306; J0696; J1644; J1650; J1815; J3370; J3490; J7070; J7120; J7999; S0028

== ENCOUNTER → 2023-03-01 | Day surgery (SDC) | payer MEDICARE, BC ==
[~2023-03-01] MED LIST changes: +FLU VACC QS2023(65UP)/MF59C/PF 60 MCG/0.5 ML SYRINGE IM ONE
[2023-03-01 08:26] LABS: #Basophils 0.1 thou/uL (0.0-0.2); #Eosinphils 0.1 thou/uL (0.0-0.7); #Monocytes 0.8 thou/uL (0.11-0.59); #Neutrophils 5.8 thou/uL (1.40-6.50); %Basophils 0.7 % (0.0-1.0); %Eosinophils 0.8 % (0.0-10.0); %Lymphocytes 23.5 % (21.0-51.0); %Monocytes 9.1 % (0.0-10.0); %Neutrophils 65.2 % (42.0-75.0); Hematocrit 26.7 % (36.0-47.0); Hemoglobin 7.8 g/dL (12.0-16.0); Mean Corpuscular HGB CONC 29.2 g/dL (32.0-36.0); Mean Corpuscular Hemoglobin 26.8 pg (27.0-31.0); Mean Corpuscular Volume 91.8 fl (78.0-98.0); Platelet Count 199 10x3/uL (130-400); RBC Distribution Width 23.4 % (11.5-14.5); Red Blood Cell (RBC) Count 2.91 mill/uL (4.20-5.40); White Blood Cell (WBC) Count 8.9 10x3/uL (4.8-10.8)
[2023-03-01 08:40] LABS: INR-International Normal Ratio 1.3; Prothrombin Time 16.7 sec (12.0-14.7)
[2023-03-01 08:41] LABS: PTT 45.4 sec (22.9-36.1)
[2023-03-01 09:02] VITALS: BP 125/84; TEMP 98.7
[2023-03-01 11:48] LABS: RBC Count-Automated (BF) 32496 /cu.mm; WBC/Nucleated-Auto (BF) 172 /cu.mm
[2023-03-01 11:50] LABS: BF Color Red; Body Fluid Source Paracentesis Fluid; Clarity Cloudy/Turbid (Clear); Tube # EDTA
[2023-03-01 12:18] LABS: BF Segmented Neutrophils 14 %; Cell Count Non Hematic 55 %; Lymphocytes 31 %
== END ==
LOC: ULT 08:16
PROVIDERS: ATTEND Physician Assistant Medical
PROC: 0W9G3ZZ Drainage of Peritoneal Cavity, Percutaneous Approach (ICD-10-PCS; principal; 2023-03-01)
DX: K74.60 Unspecified cirrhosis of liver (principal); R18.8 Other ascites; D64.9 Anemia, unspecified; I48.91 Unspecified atrial fibrillation; L29.9 Pruritus, unspecified; Z88.8 Allergy status to other drugs, medicaments and biological substances
CPT/HCPCS: 36415; 49083; 80053; 83036; 84157; 84443; 85025; 85027; 85060; 85610; 85730; 87070; 87205; 88112; 88305; 89051; P9047

== ENCOUNTER 2023-03-06 12:02 | Emergency (ER) | payer MEDICARE, BC ==
[~2023-03-06 12:02] MED LIST changes: -Albumin 25% 0 ML ONE; -FLU VACC QS2023(65UP)/MF59C/PF 60 MCG/0.5 ML SYRINGE IM ONE; +Iopamidol-370 76% 500 ML MDV (1 ML CHARGE) ONE; -Lidocaine 1% PF 5 ML VIAL ONE; -Sodium Bicarbonate 2.5 MEQ/5 ML VIAL ONE
[2023-03-06 13:11] LABS: #Eosinphils 0.1 thou/uL (0.0-0.7); #Monocytes 0.5 thou/uL (0.11-0.59); #Neutrophils 5.5 thou/uL (1.40-6.50); %Basophils 0.4 % (0.0-1.0); %Eosinophils 0.8 % (0.0-10.0); %Lymphocytes 16.6 % (21.0-51.0); %Monocytes 6.3 % (0.0-10.0); %Neutrophils 75.6 % (42.0-75.0); Hematocrit 27.3 % (36.0-47.0); Hemoglobin 8.1 g/dL (12.0-16.0); Mean Corpuscular HGB CONC 29.7 g/dL (32.0-36.0); Mean Corpuscular Hemoglobin 27.4 pg (27.0-31.0); Mean Corpuscular Volume 92.2 fl (78.0-98.0); RBC Distribution Width 23.5 % (11.5-14.5); Red Blood Cell (RBC) Count 2.96 mill/uL (4.20-5.40); White Blood Cell (WBC) Count 7.3 10x3/uL (4.8-10.8)
[2023-03-06 13:18] LABS: Mean Platelet Volume 9.9 fL (7.4-10.4); Platelet Count 284 10x3/uL (130-400)
[2023-03-06 13:34] LABS: ALT (SGPT) 13 U/L (8-55); AST (SGOT) 26 U/L (5-34); Albumin 2.4 g/dL (3.4-4.8); Alkaline Phosphatase 267 U/L (40-110); Anion Gap 15 mmol/L (10-20); BUN (Urea Nitrogen) 41 mg/dL (9.8-20.1); Bilirubin, Total 0.7 mg/dL (0.2-1.2); Calc. Creatinine Clearance 0 mL/min (70-130); Calcium 8.2 mg/dL (7.8-10.44); Carbon Dioxide 25 mmol/L (23-31); Chloride 103 mmol/L (98-107); Estimated GFR 38; Globulin 3.8 g/dL (2.4-3.5); Glucose 115 mg/dL (83-110); Lipase 79 U/L (8-78); Protein, Total 6.2 g/dL (5.8-8.1); Sodium 139 mmol/L (136-145)
[2023-03-06 13:35] LABS: Troponin I 0.053 ng/mL (< 0.028)
[2023-03-06 14:53] LABS: Bacteria/HPF None Seen HPF (None Seen); Bilirubin Negative (Negative); Blood, Urine Negative (Negative); CAUTI Indications for Culture Alt mental st,lethar; Clarity Clear (Clear); Glucose, Urine (Dipstick) >=1000 mg/dL (Negative); Ketone, Urine Negative (Negative); Leukocyte Negative Leu/uL (Negative); Nitrite Negative (Negative); Protein, Urine (Dipstick) Negative (Neg-Trace); RBC/HPF 0-3 HPF (0-3); Squamous Epithelial None Seen HPF (0-3); Urobilinogen Normal mg/dL (Less than 2); WBC/HPF 0-3 HPF (0-3); pH, Urine 6.5 (5.0-9.0)
[2023-03-06 14:57] LABS: Urine Culture Reflex No No
== END 2023-03-06 17:00 | disposition home or self-care (01) ==
LOC: ERS 12:02
DX: R10.9 Unspecified abdominal pain (principal); D64.9 Anemia, unspecified; K74.60 Unspecified cirrhosis of liver; R16.0 Hepatomegaly, not elsewhere classified; E78.5 Hyperlipidemia, unspecified; E11.9 Type 2 diabetes mellitus without complications; I11.0 Hypertensive heart disease with heart failure; I50.9 Heart failure, unspecified; I48.91 Unspecified atrial fibrillation
CPT/HCPCS: 36415; 74177; 80053; 81001; 83690; 84484; 85025; 93005; Q9967

== ENCOUNTER 2023-03-15 08:10 | Day surgery (SDC) | payer MEDICARE, BC ==
[2023-03-15] MEDS ORDERED: Lidocaine 1% PF 5 ML VIAL ONE (08:28)
[2023-03-15] MEDS ORDERED: Sodium Bicarbonate 2.5 MEQ/5 ML VIAL ONE (08:28)
[2023-03-15] MEDS ORDERED: FLU VACC QS2023(65UP)/MF59C/PF 60 MCG/0.5 ML SYRINGE IM ONE (08:30)
== END 2023-03-15 10:15 | disposition home or self-care (01) ==
LOC: ULT 08:10
PROVIDERS: ATTEND Physician Assistant Medical
PROC: 0W9G30Z Drainage of Peritoneal Cavity with Drainage Device, Percutaneous Approach (ICD-10-PCS; principal; 2023-03-15)
DX: R18.8 Other ascites (principal); K74.60 Unspecified cirrhosis of liver; I48.91 Unspecified atrial fibrillation; L29.9 Pruritus, unspecified
CPT/HCPCS: 49083; 90694; G0008; 90471

== ENCOUNTER → 2023-03-29 | Day surgery (SDC) | payer MEDICARE, BC | LOC: ULT 08:10 | PROVIDERS: ATTEND Physician Assistant Medical | PROC: 0W9G3ZZ Drainage of Peritoneal Cavity, Percutaneous Approach (ICD-10-PCS; principal; 2023-03-29) | DX: K74.60 Unspecified cirrhosis of liver (principal); R18.8 Other ascites; L29.9 Pruritus, unspecified; D64.9 Anemia, unspecified; I48.91 Unspecified atrial fibrillation; Z88.8 Allergy status to other drugs, medicaments and biological substances | CPT/HCPCS: 49083 ==

== ENCOUNTER → 2023-04-12 | Day surgery (SDC) | payer MEDICARE, BC | LOC: ULT 08:14 | PROVIDERS: ATTEND Physician Assistant Medical | DX: K74.60 Unspecified cirrhosis of liver (principal); R18.8 Other ascites; Z53.9 Procedure and treatment not carried out, unspecified reason; I48.91 Unspecified atrial fibrillation; D64.9 Anemia, unspecified; L29.9 Pruritus, unspecified; Z11.52 Encounter for screening for COVID-19 | CPT/HCPCS: 76705; 87635 ==

== ENCOUNTER 2023-04-23 10:20 | Inpatient (IN) | payer MEDICARE, BC ==
[2023-04-23 11:12] LABS: #Eosinphils 0.1 thou/uL (0.0-0.7); #Monocytes 0.8 thou/uL (0.11-0.59); %Basophils 0.2 % (0.0-1.0); %Eosinophils 0.5 % (0.0-10.0); %Lymphocytes 8.3 % (21.0-51.0); %Monocytes 6.1 % (0.0-10.0); %Neutrophils 84.2 % (42.0-75.0); Hematocrit 26.7 % (36.0-47.0); Mean Corpuscular Hemoglobin 27.7 pg (27.0-31.0); Mean Corpuscular Volume 92.4 fl (78.0-98.0); Platelet Count 165 10x3/uL (130-400); RBC Distribution Width 22.2 % (11.5-14.5); Red Blood Cell (RBC) Count 2.89 mill/uL (4.20-5.40); White Blood Cell (WBC) Count 13.1 10x3/uL (4.8-10.8)
[2023-04-23 11:38] LABS: ALT (SGPT) 15 U/L (8-55); AST (SGOT) 28 U/L (5-34); Albumin 2.5 g/dL (3.4-4.8); Alkaline Phosphatase 235 U/L (40-110); Anion Gap 15 mmol/L (10-20); BUN (Urea Nitrogen) 78 mg/dL (9.8-20.1); Calc. Creatinine Clearance 0 mL/min (70-130); Calcium 8.1 mg/dL (7.8-10.44); Carbon Dioxide 22 mmol/L (23-31); Chloride 101 mmol/L (98-107); Estimated GFR 23; Globulin 4.6 g/dL (2.4-3.5); Glucose 198 mg/dL (83-110); Potassium 4.2 mmol/L (3.5-5.1); Protein, Total 7.1 g/dL (5.8-8.1); Sodium 134 mmol/L (136-145)
[2023-04-23 11:44] LABS: Troponin I 0.207 ng/mL (< 0.028)
[2023-04-23] MEDS ORDERED: cefTRIAXone (ROCEPHIN) 2 GM VIAL ONE (12:39)
[2023-04-23] MEDS ORDERED: Sodium Chloride 0.9% 100 ML ONE (12:39)
[2023-04-23 14:06] LABS: Lactic Acid 1.7 mmol/L (0.5-2.2)
[2023-04-23 14:07] LABS: INR-International Normal Ratio 1.4; Prothrombin Time 18.1 sec (12.0-14.7)
[2023-04-23] MEDS ORDERED: Loperamide HCl 2 MG CAP PO PRN (14:24)
[2023-04-23] MEDS ORDERED: Ondansetron PF 4 MG/2 ML Vial IVP PRN (14:24)
[2023-04-23] MEDS ORDERED: Sodium Bicarbonate 150 MEQ in Dextrose 5% in Water 1,000 ML IV SCH (14:30)
[2023-04-23 14:51] LABS: Troponin I 0.196 ng/mL (< 0.028)
[2023-04-23] MEDS ORDERED: Dextrose 5% in Water 1,000 ML IV PRN (15:30)
[2023-04-23] MEDS ORDERED: Dextrose 50% Abboject 50 ML SYRINGE SLOW IVP PRN (15:30)
[2023-04-23] MEDS ORDERED: Glucagon 1 MG/ML KIT IM PRN (15:30)
[2023-04-23 15:32] LABS: Phosphorus 3.6 mg/dL (2.3-4.7)
[2023-04-23 16:11] VITALS: BMI 29.0
[2023-04-23] MEDS: Acetaminophen 325 MG TAB PO PRN (16:30)
[2023-04-23] MEDS: Furosemide 20 MG (2 mL) VIAL SLOW IVP SCH (16:34)
[2023-04-23] MEDS: Heparin 5,000 UNITS/ML VIAL SC SCH (16:35)
[2023-04-23] MEDS: EPOETIN ALFA-EPBX (ESRD) 10,000 UNITS/ML VIAL SC SCH (16:35)
[2023-04-23] MEDS ORDERED: traMADol HCl 50 MG TAB PO PRN (16:59)
[2023-04-23 18:56] LABS: Troponin I 0.186 ng/mL (< 0.028)
[2023-04-23] MEDS ORDERED: Metoprolol Tartrate 25 MG TAB PO SCH (21:00)
[2023-04-23] MEDS ORDERED: Torsemide 20 MG TAB PO SCH (21:00)
[2023-04-23] MEDS: HYDROcodone/Acetaminophen 5/325 mg Tablet PO PRN (21:38)
[2023-04-23] MEDS: Nystatin Powder 15 GM BOT TOP SCH (21:38)
[2023-04-24 01:55] LABS: Bacteria/HPF 2+ HPF (None Seen); Bilirubin Negative (Negative); Blood, Urine 2+ (Negative); CAUTI Indications for Culture Dysuria,urgency,freq; Clarity Extra Turbid (Clear); Glucose, Urine (Dipstick) Greater than 1000 mg/dL (Negative); Ketone, Urine Negative (Negative); Leukocyte 500 Leu/uL (Negative); Nitrite Negative (Negative); Protein, Urine (Dipstick) 20 mg/dL (Neg-Trace); Specific Gravity, Urine 1.011 (1.002-1.036); Squamous Epithelial None Seen HPF (0-3); Urobilinogen Normal mg/dL (Less than 2); WBC/HPF Greater than 50 HPF (0-3); Yeast-Budding 4+ HPF (None Seen); pH, Urine 5.5 (5.0-9.0)
[2023-04-24 02:01] LABS: Urine Culture Reflex Yes Yes
[2023-04-24] MEDS: Furosemide 20 MG (2 mL) VIAL SLOW IVP SCH (05:08)
[2023-04-24 06:00] LABS: #Basophils 0.1 thou/uL (0.0-0.2); #Eosinphils 0.1 thou/uL (0.0-0.7); #Neutrophils 11.6 thou/uL (1.40-6.50); %Basophils 0.3 % (0.0-1.0); %Eosinophils 0.9 % (0.0-10.0); %Lymphocytes 10.8 % (21.0-51.0); %Neutrophils 79.8 % (42.0-75.0); Hematocrit 29.4 % (36.0-47.0); Hemoglobin 8.7 g/dL (12.0-16.0); Mean Corpuscular HGB CONC 29.6 g/dL (32.0-36.0); Mean Corpuscular Hemoglobin 27.1 pg (27.0-31.0); Mean Corpuscular Volume 91.6 fl (78.0-98.0); Red Blood Cell (RBC) Count 3.21 mill/uL (4.20-5.40); White Blood Cell (WBC) Count 14.5 10x3/uL (4.8-10.8)
[2023-04-24 06:27] LABS: Anion Gap 17 mmol/L (10-20); BUN (Urea Nitrogen) 76 mg/dL (9.8-20.1); Calc. Creatinine Clearance 22 mL/min (70-130); Calcium 8.6 mg/dL (7.8-10.44); Carbon Dioxide 21 mmol/L (23-31); Chloride 98 mmol/L (98-107); Estimated GFR 22; Glucose 184 mg/dL (83-110); Potassium 3.9 mmol/L (3.5-5.1); Sodium 132 mmol/L (136-145)
[2023-04-24 06:49] LABS: Anisocytosis SLIGHT = 6-15 cells HPF (0-5); CellaVision Operator ID lab.abc; Large Platelets 13.1 % (0-5); Platelet Adequacy Comment Platelets Normal; Polychromasia SLIGHT = 2-3 cells HPF (0-2); Smudge Cells 6.1 %; Target Cells SLIGHT = 2-5 cells HPF (0-1)
[2023-04-24] MEDS ORDERED: Senokot S 8.6-50 MG TAB PO PRN (08:36)
[2023-04-24] MEDS: Aspirin Chewable 81 MG TAB PO SCH (11:07)
[2023-04-24] MEDS: Polyethylene Glycol 3350 17 GM Packet PO PRN (11:07)
[2023-04-24 11:09] LABS: Hematocrit 27.9 % (36.0-47.0); Hemoglobin 8.3 g/dL (12.0-16.0); Mean Corpuscular HGB CONC 29.7 g/dL (32.0-36.0); Mean Corpuscular Hemoglobin 27.8 pg (27.0-31.0); Mean Corpuscular Volume 93.3 fl (78.0-98.0); Platelet Count 169 10x3/uL (130-400); RBC Distribution Width 22.1 % (11.5-14.5); Red Blood Cell (RBC) Count 2.99 mill/uL (4.20-5.40)
[2023-04-24] MEDS: cefTRIAXone\\ROCEPHIN 1 GM in Sodium Chloride 0.9% 100 ML IVPB SCH (13:00)
[2023-04-24] MEDS: HumaLOG 300 UNITS/3 ML VIAL SC PRN (13:08)
[2023-04-24] MEDS ORDERED: diphenhydrAMINE 25 MG CAP PO PRN (15:28)
[2023-04-24] MEDS: diphenhydrAMINE 12.5 MG/5 ML UDCUP PO PRN (17:36)
[2023-04-25 05:35] LABS: #Basophils 0.1 thou/uL (0.0-0.2); #Eosinphils 0.2 thou/uL (0.0-0.7); #Monocytes 1.7 thou/uL (0.11-0.59); #Neutrophils 11.3 thou/uL (1.40-6.50); %Basophils 0.5 % (0.0-1.0); %Eosinophils 0.9 % (0.0-10.0); %Lymphocytes 19.6 % (21.0-51.0); %Monocytes 9.8 % (0.0-10.0); %Neutrophils 67.1 % (42.0-75.0); Hemoglobin 9.6 g/dL (12.0-16.0); Mean Corpuscular Hemoglobin 27.4 pg (27.0-31.0); Mean Corpuscular Volume 91.4 fl (78.0-98.0); RBC Distribution Width 21.9 % (11.5-14.5); White Blood Cell (WBC) Count 16.9 10x3/uL (4.8-10.8)
[2023-04-25 06:04] LABS: Anion Gap 17 mmol/L (10-20); BUN (Urea Nitrogen) 76 mg/dL (9.8-20.1); Calc. Creatinine Clearance 24 mL/min (70-130); Calcium 9.2 mg/dL (7.8-10.44); Carbon Dioxide 20 mmol/L (23-31); Chloride 100 mmol/L (98-107); Estimated GFR 24; Glucose 157 mg/dL (83-110); Potassium 4.6 mmol/L (3.5-5.1); Sodium 132 mmol/L (136-145)
[2023-04-25] MEDS: Furosemide 20 MG TAB PO SCH (10:02)
[2023-04-25 10:26] LABS: Platelet Count 138 10x3/uL (130-400)
[2023-04-25] MEDS: Fluconazole 100 MG TAB PO SCH (15:33)
[2023-04-25] MEDS: Doxycycline 100 MG CAP PO SCH ×2 (15:34→19:36)
[2023-04-26 06:08] LABS: #Basophils 0.1 thou/uL (0.0-0.2); #Eosinphils 0.1 thou/uL (0.0-0.7); #Monocytes 1.3 thou/uL (0.11-0.59); #Neutrophils 10.6 thou/uL (1.40-6.50); %Basophils 0.4 % (0.0-1.0); %Eosinophils 0.9 % (0.0-10.0); %Lymphocytes 14.2 % (21.0-51.0); %Neutrophils 71.6 % (42.0-75.0); Hematocrit 29.1 % (36.0-47.0); Hemoglobin 8.7 g/dL (12.0-16.0); Mean Corpuscular HGB CONC 29.9 g/dL (32.0-36.0); Mean Corpuscular Hemoglobin 27.6 pg (27.0-31.0); Mean Corpuscular Volume 92.4 fl (78.0-98.0); Platelet Count 162 10x3/uL (130-400); Red Blood Cell (RBC) Count 3.15 mill/uL (4.20-5.40); White Blood Cell (WBC) Count 14.8 10x3/uL (4.8-10.8)
[2023-04-26 06:29] LABS: Anion Gap 19 mmol/L (10-20); BUN (Urea Nitrogen) 79 mg/dL (9.8-20.1); Calc. Creatinine Clearance 25 mL/min (70-130); Calcium 8.9 mg/dL (7.8-10.44); Carbon Dioxide 18 mmol/L (23-31); Chloride 97 mmol/L (98-107); Estimated GFR 26; Glucose 135 mg/dL (83-110); Potassium 4.9 mmol/L (3.5-5.1); Sodium 129 mmol/L (136-145)
[2023-04-26] MEDS: Fluconazole 100 MG TAB PO SCH (09:43)
[2023-04-26] MEDS ORDERED: Sodium Bicarbonate 2.5 MEQ/5 ML SDV ONE (15:36)
[2023-04-26] MEDS ORDERED: Lidocaine 1% PF 5 ML VIAL ONE (15:36)
[2023-04-26 19:22] LABS: RBC Count-Automated (BF) 1899 /cu.mm; WBC/Nucleated-Auto (BF) 155 /cu.mm
[2023-04-26 20:03] LABS: BF Color Yellow; Body Fluid Source Ascites Body Fluid; Clarity Hazy (Clear); Tube # EDTA
[2023-04-26 20:05] LABS: BF Segmented Neutrophils 52 %; Cell Count Non Hematic 21 %; Lymphocytes 27 %
[2023-04-27 04:22] LABS: #Basophils 0.1 thou/uL (0.0-0.2); #Eosinphils 0.1 thou/uL (0.0-0.7); #Monocytes 1.3 thou/uL (0.11-0.59); #Neutrophils 8.8 thou/uL (1.40-6.50); %Basophils 0.5 % (0.0-1.0); %Lymphocytes 17.7 % (21.0-51.0); %Monocytes 9.5 % (0.0-10.0); %Neutrophils 66.5 % (42.0-75.0); Hematocrit 27.4 % (36.0-47.0); Hemoglobin 8.2 g/dL (12.0-16.0); Mean Corpuscular HGB CONC 29.9 g/dL (32.0-36.0); Mean Corpuscular Hemoglobin 26.6 pg (27.0-31.0); Platelet Count 182 10x3/uL (130-400); RBC Distribution Width 21.8 % (11.5-14.5); Red Blood Cell (RBC) Count 3.08 mill/uL (4.20-5.40); White Blood Cell (WBC) Count 13.2 10x3/uL (4.8-10.8)
[2023-04-27 05:37] LABS: Anion Gap 14 mmol/L (10-20); BUN (Urea Nitrogen) 80 mg/dL (9.8-20.1); Calc. Creatinine Clearance 27 mL/min (70-130); Carbon Dioxide 21 mmol/L (23-31); Chloride 99 mmol/L (98-107); Estimated GFR 28; Glucose 189 mg/dL (83-110); Potassium 4.2 mmol/L (3.5-5.1); Sodium 130 mmol/L (136-145)
[2023-04-27 05:41] LABS: Calcium 8.9 mg/dL (7.8-10.44)
[2023-04-27 13:09] VITALS: BP 129/61; TEMP 98.6
== END 2023-04-27 17:55 | disposition home health service (06) | DRG 871 ==
LOC: ERS 10:20 → ERHOLD 14:25 → INTOOBSV 14:25 → 2NO 15:49 → OBSVTOIN 04-24 08:37
PROVIDERS: ADMIT Internal Medicine; ATTEND Internal Medicine
PROC: 3E033XZ Introduction of Vasopressor into Peripheral Vein, Percutaneous Approach (ICD-10-PCS; 2023-04-24)
PROC: 0W9G3ZZ Drainage of Peritoneal Cavity, Percutaneous Approach (ICD-10-PCS; principal; 2023-04-26)
PROC: 30233J1 Transfusion of Nonautologous Serum Albumin into Peripheral Vein, Percutaneous Approach (ICD-10-PCS; 2023-04-26)
PROC: 3E03329 Introduction of Other Anti-infective into Peripheral Vein, Percutaneous Approach (ICD-10-PCS; 2023-04-27)
DX: A41.01 Sepsis due to Methicillin susceptible Staphylococcus aureus (principal); G93.41 Metabolic encephalopathy; I50.23 Acute on chronic systolic (congestive) heart failure; I21.A1 Myocardial infarction type 2; I13.0 Hypertensive heart and chronic kidney disease with heart failure and stage 1 through stage 4 chronic kidney disease, or unspecified chronic kidney disease; R18.8 Other ascites; N17.9 Acute kidney failure, unspecified; N18.4 Chronic kidney disease, stage 4 (severe); E87.1 Hypo-osmolality and hyponatremia; E87.20 Acidosis, unspecified; B37.49 Other urogenital candidiasis; B37.7 Candidal sepsis; E11.22 Type 2 diabetes mellitus with diabetic chronic kidney disease; K74.60 Unspecified cirrhosis of liver; E87.5 Hyperkalemia; D63.1 Anemia in chronic kidney disease; I45.10 Unspecified right bundle-branch block; Z96.642 Presence of left artificial hip joint; Z88.8 Allergy status to other drugs, medicaments and biological substances; Z79.82 Long term (current) use of aspirin; Z79.899 Other long term (current) drug therapy; Z90.49 Acquired absence of other specified parts of digestive tract; Z98.890 Other specified postprocedural states; E78.5 Hyperlipidemia, unspecified
CPT/HCPCS: 36415; 36416; 49083; 51701; 71045; 80048; 81001; 82042; 83605; 83880; 83970; 84100; 84157; 84484; 85025; 85060; 85610; 87040; 87070; 87086; 87205; 89051; 93005; 96365; 96372; 96375; 96376; 97139; G0306; G0378; J0696; J1644; J1815; J1940; J3490; Q0163; Q5105